=== PATIENT | female | born 1930 | race Caucasian/White ===

== ENCOUNTER → 2016-04-02 | Outpatient (CLI) | payer BC, OTHER ==
[~2016-04-02] MED LIST: BETA300T PO; DIGECAP3 PO; LOPE2TAB74 PO; LORA-741 PO; MELO7.5T6 PO; MISCTAB88 PO; MULT-190 PO; NTRS PO; VERA240C2 PO
[2016-04-02 17:48] LABS: BASO % 0.2 %; BASO ABS # 0.01 K/uL (0-0.2); COMPLETE YES; EOS % 5.1 %; HEMATOCRIT 42.1 % (37-47); IG% 0.2 %; LYMPH % 44.2 %; LYMPH ABS # 1.92 K/uL (1.2-3.4); MEAN CELL VOLUME 87.7 fL (80-100); MEAN CORPUSCULAR HEMOGLOBIN 31.7 pg (25-34); MEAN CORPUSCULAR HGB CONC 36.1 g/dl (32-36); MEAN PLATELET VOLUME 10.3 fL (7.4-10.4); MONO % 7.1 %; NEUT % 43.2 %; PLATELET COUNT 176 K/uL (130-400); WHITE BLOOD COUNT 4.34 K/uL (4.8-10.8)
--- NOTE | 2016-04-06 09:02 | CODING QUERY MEDICAL NECESSITY ---
SUPPORTING DIAGNOSIS NEEDED Jena PILLAI, A supporting diagnosis is required for the test/procedure performed on this patient in order for us to be reimbursed by the patient's insurance. Please provide a supporting diagnosis for the following test/procedure listed below next to the test name along with your signature. *If there is no additional diagnosis for this patient that would support the following test/procedure please document that below next to the test/procedure. Test(s)/Procedure(s) that require a supporting diagnosis: * ([id number]) VITAMIN D ASSAY DIAGNOSIS: DATE OF SERVICE: 04/02/16 Provider Signature: Date: Thank you Augie Ruiz [facility] Information Management Once completed, please kindly fax back to [phone] For questions please call [phone]
== END | disposition home or self-care (01) ==
LOC: C.LABPVFM 14:58
PROVIDERS: ATTEND Nurse Practitioner
DX: G62.9 Polyneuropathy, unspecified (principal); R53.83 Other fatigue; M54.9 Dorsalgia, unspecified

== ENCOUNTER → 2016-07-13 | Outpatient (CLI) | payer BC ==
--- NOTE | 2016-07-13 14:57 | DIAGNOSTIC IMAGING REPORT ---
KUB CLINICAL HISTORY: CONSTIPATION COMPARISON STUDY: 02/23/2014 FINDINGS: There is no pathologic bowel dilatation. There is scattered stool within the colon. There are postsurgical changes are prior cholecystectomy. There are vascular calcifications present. There is a stable sclerotic focus within either the right medial ilium or lateral right sacrum. IMPRESSION: No evidence of pathologic bowel dilatation Electronically signed by: Ja Henry M.D. 07/13/2016 2:56 PM Dictated Date/Time: 07/13/2016 2:53 PM
[2016-07-13 17:31] LABS: HEMATOCRIT 43.7 % (37-47); MEAN CORPUSCULAR HEMOGLOBIN 32.3 pg (25-34); MEAN CORPUSCULAR HGB CONC 35.5 g/dl (32-36); MEAN PLATELET VOLUME 10.4 fL (7.4-10.4); PLATELET COUNT 162 K/uL (130-400); WHITE BLOOD COUNT 3.89 K/uL (4.8-10.8)
[2016-07-13 17:38] LABS: ALT/SGPT 30 U/L (12-78); AST/SGOT 23 U/L (15-37); BLOOD UREA NITROGEN 11 mg/dl (7-18); BUN/CREATININE RATIO 15.2 (10-20); CALCIUM 8.8 mg/dl (8.5-10.1); CARBON DIOXIDE 34 mmol/L (21-32); CHLORIDE 103 mmol/L (98-107); CREATININE 0.73 mg/dl (0.60-1.20); GLUCOSE 108 mg/dl (70-99); POTASSIUM 3.6 mmol/L (3.5-5.1); SODIUM 141 mmol/L (136-145)
[2016-07-13 17:40] LABS: ALB/GLOB RATIO 1.1 (0.9-2); ALKALINE PHOSPHATASE 65 U/L (45-117)
== END | disposition home or self-care (01) ==
LOC: C.RADPV 14:21
PROVIDERS: ATTEND Nurse Practitioner
DX: K59.00 Constipation, unspecified (principal)

== ENCOUNTER → 2016-11-06 | Outpatient (CLI) | payer BC ==
[2016-11-06 12:39] LABS: BLOOD UREA NITROGEN 12 mg/dl (7-18); BUN/CREATININE RATIO 13.9 (10-20); CALCIUM 9.7 mg/dl (8.5-10.1); CARBON DIOXIDE 30 mmol/L (21-32); CHLORIDE 103 mmol/L (98-107); CREATININE 0.84 mg/dl (0.60-1.20); GLUCOSE 113 mg/dl (70-99); POTASSIUM 3.7 mmol/L (3.5-5.1); SODIUM 140 mmol/L (136-145)
== END | disposition home or self-care (01) ==
LOC: C.LABPVFM 09:35
PROVIDERS: ATTEND Nurse Practitioner
DX: I10 Essential (primary) hypertension (principal)

== ENCOUNTER → 2016-12-03 | Outpatient (CLI) | payer BC | END | disposition home or self-care (01) | LOC: C.MAMM 13:44 | PROVIDERS: ATTEND Nurse Practitioner | DX: M85.88 Other specified disorders of bone density and structure, other site (principal); M85.851 Other specified disorders of bone density and structure, right thigh; M85.852 Other specified disorders of bone density and structure, left thigh ==

== ENCOUNTER → 2017-05-30 | Outpatient (CLI) | payer BC ==
--- NOTE | 2017-05-30 11:06 | DIAGNOSTIC IMAGING REPORT ---
C-SPINE ROUTINE 4 OR 5 VIEWS CLINICAL HISTORY: M25.512 Left shoulder painM54.2 Cervicalgia COMPARISON STUDY: No previous studies for comparison. FINDINGS: No fractures or subluxations are visualized. There are degenerative changes present most pronounced the C6-7 and C7-T1 levels. IMPRESSION: 1. No fractures or subluxations 2. 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 05/30/2017 11:05 AM Dictated Date/Time: 05/30/2017 11:04 AM
--- NOTE | 2017-05-30 11:07 | DIAGNOSTIC IMAGING REPORT ---
LEFT SHOULDER 3 VIEWS HISTORY: M25.512 Left shoulder painM54.2 Cervicalgia COMPARISON: None. FINDINGS: There is no fracture or dislocation. Soft tissues are unremarkable. The left clavicle is intact. There is severe osteoarthritis at the glenohumeral joint demonstrated by cartilage space narrowing, subchondral sclerosis, and subchondral cystic change. There are also marginal osteophytes at this location. IMPRESSION: No fracture or dislocation within the left shoulder. Severe glenohumeral joint osteoarthritis. Electronically signed by: Landon Sahu M.D. 05/30/2017 11:06 AM Dictated Date/Time: 05/30/2017 11:04 AM
== END | disposition home or self-care (01) ==
LOC: C.RAD1850 10:46
PROVIDERS: ATTEND Nurse Practitioner Family
DX: M25.512 Pain in left shoulder (principal); M54.2 Cervicalgia; M19.012 Primary osteoarthritis, left shoulder

== ENCOUNTER 2019-01-18 07:57 | Inpatient (IN) ==
--- NOTE | 2019-01-18 09:02 | XRay Report ---
XR chest 1V portable HISTORY: 88 years-old Female sob, cp acute shortness of breath with atypical chest pain COMPARISON: Acute abdominal series radiographs 02/11/2014 TECHNIQUE: Portable AP view of the chest FINDINGS: Cardiac silhouette is mildly enlarged, unchanged. Calcified plaque of the thoracic aortic arch. No pn eumothorax, pleural effusion, focal airspace consolidation or overt pulmonary edema. Lungs are mildly hyperinflated. Degenerative changes of the shoulders and spine. IMPRESSION: No acute process. The above report was generated using voice recognition software. It may contain grammatical, syntax o r spelling errors. Electronically signed by: Rich Rico M.D. 01/18/2019 9:00 AM
[2019-01-18 09:05] LABS: Basophils # (auto) 0.02 K/uL (0-0.2); Basophils % (auto) 0.2 %; Eosinophils # (auto) 0.15 K/uL (0-0.5); Eosinophils % (auto) 1.5 %; Hematocrit (blood only) 43.7 % (37-47); Immature Granulocytes # (auto) 0.01 K/uL (0.00-0.02); Immature Granulocytes % (auto) 0.1 %; Lymphocytes # (auto) 1.08 K/uL (1.2-3.4); Lymphocytes % (auto) 10.7 %; Mean Corpuscular Hemoglobin 31.3 pg (25-34); Mean Corpuscular Hgb Conc 34.3 g/dL (32-36); Mean Corpuscular Volume 91.2 fL (80-100); Mean Platelet Volume 9.9 fL (7.4-10.4); Monocytes # (auto) 0.74 K/uL (0.11-0.59); Monocytes % (auto) 7.3 %; Neutrophils # (auto) 8.13 K/uL (1.4-6.5); Neutrophils % (auto) 80.2 %; Platelet Count 186 K/uL (130-400); RDW Coefficient of Variation 12.9 % (11.5-14.5); RDW Standard Deviation 42.9 fL (36.4-46.3); Red Blood Count 4.79 M/uL (4.2-5.4); White Blood Count 10.13 K/uL (4.8-10.8)
[2019-01-18 09:22] LABS: Albumin Globulin Ratio 0.8 (0.9-2); Albumin Level 3.4 gm/dl (3.4-5.0); BUN Creatinine Ratio 11.9 (10-20); Bilirubin,Total 0.7 mg/dl (0.2-1); Calcium 9.5 mg/dl (8.5-10.1); Creatinine Clr Calc Pharmacy 49.6 ml/min; Est GFR (African American) 76.2; Est GFR (Non-African American) 65.8; Globulin 4.2 gm/dl (2.5-4.0); Total Protein 7.6 gm/dl (6.4-8.2)
[2019-01-18 09:50] LABS: Lipase 38 U/L (73-393); NT Pro B Type Natriuretic Pept 136 pg/ml (0-1800); Troponin I < 0.015 ng/ml (0-0.045)
[2019-01-18 10:09] LABS: Potassium 3.8 mmol/L (3.5-5.1)
[2019-01-18 10:14] LABS: Magnesium 1.9 mg/dl (1.8-2.4)
[2019-01-18] MEDS ORDERED: OPTIRAY 320 125ml IV PRN (10:20)
--- NOTE | 2019-01-18 10:47 | CT Scan Report ---
CT angio chest PE protocol CT DOSE: 502.67 mGy.cm HISTORY: 88 years-old Female with PE. Acute respiratory distress TECHNIQUE: Multiple CTA images of the chest were obtained after the intravenous administration of 120 ml Optiray 320. Coronal and sagittal MIPS were obtained from the axial data set and were submitted for review. All measurements were obtained according to NASCET criteria. A dose lowering technique w as utilized adhering to the principles of ALARA. COMPARISON: Chest radiograph of same day FINDINGS: CTA: Mild cardiomegaly. No pericardial effusion. Coronary arterial and aortic annular calcifications are n oted. Moderate mixed plaque of the thoracic aorta. No thoracic aortic aneurysm or dissection. Patency of the imaged great vessels. No mediastinal hematoma. The pulmonary arterial tree is opacified to le wu of the proximal subsegmental branches. The bibasilar pulmonary artery branches are suboptimally v isualized secondary to respiratory motion artifact. No filling defects identified to suggest pulmonar y thromboembolic disease. CT CHEST: Mildly heterogeneous appearance of the thyroid. Calcified mediastinal and hilar lymph nodes compatibl e with prior granulomatous disease. Additionally, there are mildly enlarged hilar and prominent subca rinal noncalcified lymph nodes. No pneumothorax or pleural effusion. Mild bilateral bronchial wall th ickening. No focal airspace consolidation typical for pneumonia. No overt pulmonary edema. 3 mm subpl eural nodule of the left lower lobe, image 122 series 4 is indeterminate. 8 x 5 mm subpleural nodule of the superior segment left lower lobe with mild subpleural retraction/scarring. Central airways are patent. No acute processes of the imaged upper abdomen. Upper abdominal vascular calcifications are noted. Hepatic steatosis. Degenerative changes of the spine and shoulders. IMPRESSION: 1. Cardiomegaly without evidence of pulmonary thromboembolic disease. The study is mildly limited sec ondary to respiratory motion artifact as above. 2. No pleural effusion or focal airspace consolidation typical for pneumonia. 3. Prior granulomatous disease. Additionally, there are a few prominent and mildly enlarged subcarina l and hilar lymph nodes which are nonspecific. 4. There are a few subpleural nodules of the left lower lobe, largest of which measures 8 x 5 mm. Fol low-up guidelines provided below. 5. Bilateral bronchial wall thickening. Correlate clinically to exclude bronchitis or inflammatory ai rway disease. Please refer to below summary of Fleischner criteria recommendations for follow-up of incidental CT n odules ([place] Marshall, Guidelines for management of small pulmonary nodules detected on CT scans: A erwin wooten from the Fleischner Society, Radiology 237: [phone].) SOLID NODULES Multiple nodules size: 6-8 mm * Low risk patients: follow-up at 3-6 months, then consider further follow-up at 18-24 months * high risk patients: follow-up at 3-6 months, then at 18-24 months if no change Multiple nodules size: >8 mm * Low risk patients: follow-up at 3-6 months, then consider further follow-up at 18-24 months * high risk patients: follow-up at 3-6 months, then at 18-24 months if no change Note: newly detected indeterminate nodule in persons 35 years of age or older. * Low risk patients: minimal or absent history of smoking and/or other known risk factors * high risk patients: history of smoking or of other known risk factors (e.g. first degree relative with lung cancer, or exposure to asbestos, radon, uranium) * if a nodule up to 8 mm is partly solid or is ground glass further follow-up is required after 24 m onths to exclude possible slow growing adenocarcinoma (YUNG) The above report was generated using voice recognition software. It may contain grammatical, syntax o r spelling errors. Electronically signed by: Rich Rico M.D. 01/18/2019 10:46 AM
--- NOTE | 2019-01-18 11:55 | Emergency Department Note ---
Entered by Anna Bray acting as a scribe for Linette Trujillo DO History of Present Illness General Chief complaint: Shortness of Breath/Dyspnea Stated complaint: VERTIGO, DIFFICULTY BREATHING Time Seen by Provider: 01/18/19 08:15 Source: patient and family (daughter) History of Present Illness Onset (ago): day(s) 4 Location: chest Pain Consistency: + other (persistent) Maximum Pain Intensity: 0 Quality: + other (shortness of breath) Associated symptoms: + denies other symptoms (fevers, chills, nausea, changes in appetite, changes in bowel movements, or swelling in her legs) and + other (productive cough (clear phlegm), chest pain with breathing) The patient is a 88 year old female that is presenting to the Emergency Room with complaints of persistent shortness of breath that started 4 days ago. The patient reports that she has an associated cough that producing a clear phlegm. She states his cough has been worsening over the last 4 to 5 days. She states that she has some chest pain with breathing. She notes that her symptoms worsened this morning, prompting her to come to the ED today. She denies any fevers, chills, nausea, changes in appetite, changes in bowel movements, or swelling in her legs. The patient denies any history of asthma, COPD, or tobacco use. She denies any past similar episodes. She notes that she has a history of a heart murmur but no other known cardiac issues. The patients daughter reports that the patient was seen by Dr. Xiong 4 days ago and had her anti-anxiety dosage changed from 5mg to 10mg daily. The patient denies any sick contacts. She denies having received a flu or pneumonia vaccine. Her daughter notes that the patients blood pressure and temperatures were reportedly normal as noted by the patients caregiving staff. No history of dysphasia, patient denies any recent choking or gagging episodes. Home Medications Home Medications Medication Instructions Recorded Confirmed Type docusate sodium 100 mg capsule 100 mg PO BID PRN #60 cap 09/13/18 01/18/19 Rx fluocinonide 0.05 % topical 1 appln TOPICAL BID #60 gm 09/13/18 01/18/19 History ointment glucosamine 750 [id number] 1 tab PO TIDM tab 09/13/18 01/18/19 History no1 644 mg-C 30 mg-erick 1 mg tablet [id number]-VR 200 mcg-vit K 15 1 tab PO QAM tab 09/13/18 01/18/19 History mcg-lycope 150 wtg-[id number]-dxkj tablet sennosides 8.6 mg tablet 8.6 mg PO BID #60 tab 01/13/19 01/18/19 History calcium carbonate-vitamin D3 1 tab PO QAM 01/18/19 01/18/19 History [Calcium 500 + D] cholecalciferol (vitamin D3) 2,000 unit PO QAM 01/18/19 01/18/19 History [Vitamin D3] escitalopram oxalate [Lexapro] 10 mg PO QAM 01/18/19 01/18/19 History hydrochlorothiazide 12.5 mg PO QAM 01/18/19 01/18/19 History omeprazole 20 mg PO QAM 01/18/19 01/18/19 History pseudoephedrine-guaifenesin 1 tab PO BID PRN 01/18/19 01/18/19 History [Mucinex D] verapamil 240 mg PO HS 01/18/19 01/18/19 History albuterol sulfate 1 puffs INH Q6H PRN 7 Days #8.5 gm 01/19/19 Rx azithromycin [Zithromax] 500 mg PO QAM 3 Days #6 tab 01/19/19 Rx prednisone 40 mg PO QAM 5 Days #10 tab 01/19/19 Rx Allergies Allergy/AdvReac Type Severity Reaction Status Date / Time lisinopril Allergy Unknown MYALGIA Verified 01/18/19 09:11 codeine AdvReac Unknown "HIGH" Verified 01/18/19 09:11 donepezil [From Aricept] AdvReac Unknown Unknown Unverified 01/18/19 09:32 morphine AdvReac Unknown Unknown Unverified 01/18/19 09:32 Opioids - Morphine Analogues AdvReac Unknown Unknown Unverified 01/18/19 09:32 Past Med/Surg History Medical History Aortic valve sclerosis (Acute) Atrial premature beats (Acute) Cervicalgia (Acute) Velez angioma (Acute) Constipation (Chronic) Depression with anxiety (Chronic) Diverticulitis of colon (Acute) Hepatic lesion (Acute) Herpes zoster without complication (Acute) Hyperlipidemia (Acute) Hypertension (Chronic) Mitral regurgitation (Acute) Murmur (Acute) Osteopenia (Acute) Paroxysmal SVT (supraventricular tachycardia) (Acute) Peripheral neuropathy (Acute) Seborrheic keratosis (Acute) Short-term memory loss (Chronic) Tubular adenoma of colon (Acute) Surgical History Hx of cholecystectomy Hx of oral surgery Hx of tubal ligation Social History Preferred Language: Nepalese Communication Ability: Effective 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 and A total of 10 systems reviewed and were otherwise negative Physical Exam Vital Signs Vital Signs - 24 hr 01/18/19 08:02 01/18/19 09:02 01/18/19 11:00 Temperature 98.6 F Temperature Source Oral Pulse Rate 97 H Pulse Rate [Apical] 85 85 Pulse Rate [Exercises] Respiratory Rate 36 H 18 18 Respiratory Rate [Exercises] Respiratory Effort / Characteristics Labored Blood Pressure 228/93 H Blood Pressure [Left Arm] 190/91 H 166/99 H Blood Pressure Mean 138 Blood Pressure Mean [Left Arm] 124 121 Pulse Oximetry 85 L 95 94 Pulse Oximetry [Exercises] Oxygen Delivery Method Room Air Room Air Oxygen Flow Rate Sepsis Recent Fever Within 48 Hours No Sepsis Action Taken by Nursing No Action Required 01/18/19 12:13 01/18/19 12:21 Temperature Temperature Source Pulse Rate Pulse Rate [Apical] 84 Pulse Rate [Exercises] 94 H Respiratory Rate 24 Respiratory Rate [Exercises] 22 Respiratory Effort / Characteristics Blood Pressure Blood Pressure [Left Arm] 182/87 H Blood Pressure Mean Blood Pressure Mean [Left Arm] 118 Pulse Oximetry 96 Pulse Oximetry [Exercises] 83 L Oxygen Delivery Method Room Air Nasal Cannula Oxygen Flow Rate 2 Sepsis Recent Fever Within 48 Hours Sepsis Action Taken by Nursing GENERAL: alert, well appearing, well nourished, no distress, non-toxic EYE EXAM: normal conjunctiva, PERRL and EOM's grossly intact OROPHARYNX: no exudate, no erythema, lips, buccal mucosa, and tongue normal and mucous membranes are moist NECK: supple, no nuchal rigidity, no adenopathy, non-tender LUNGS: Diminshed breath sounds bilaterally. No wheezes, rhonci, or rales. Normal chest wall mechanics HEART: no murmurs, S1 normal and S2 normal ABDOMEN: abdomen soft, non-tender, normo-active bowel sounds, no masses, no rebound or guarding. BACK: Back is symmetrical on inspection and there is no deformity, no midline tenderness, no CVA tenderness. SKIN: no rashes and no bruising UPPER EXTREMITIES: upper extremities are grossly normal. FROM, nml pulses b/l. LOWER EXTREMITIES: No pitting edema. FROM, nml pulses b/l. NEURO EXAM: Normal sensorium, cranial nerves II-XII grossly intact, normal speech, no gross weakness of arms, no gross weakness of legs. Course Course 0818:The patient was evaluated in room A04B. A complete history and physical examination was performed. 1200: I updated the patient on her current lab and imaging results. She continues to feel short of breath. An ambulatory trial will be attempted to evaluate the patient for discharge. 1246: Patient was unable to tolerate an ambulatory trial at this time. Her O2 saturation level dropped to 82%. 1251: I discussed the patients case with Dr. Lucio, who will evaluate the patient for further management and care. Administered Medications Discontinued Medications Albuterol (Duoneb) 3 ml NEB QIDR KIERRA Stop: 02/17/19 14:59 Last Admin: 01/19/19 14:45 Dose: 3 ml Documented by: [id number] Admin: 01/19/19 11:11 Dose: 3 ml Documented by: [id number] Admin: 01/19/19 07:14 Dose: 3 ml Documented by: [id number] Admin: 01/18/19 19:01 Dose: 3 ml Documented by: [id number] Admin: 01/18/19 15:14 Dose: Not Given Documented by: [id number] Amoxicillin/Clavulanate Potassium (Augmentin 875mg) 1 tab PO NOW ONE Stop: 01/18/19 12:48 Last Admin: 01/18/19 13:00 Dose: 1 tab Documented by: [id number] Azithromycin (Zithromax) [address] [facility] Stop: 01/25/19 14:59 Last Admin: 01/19/19 08:03 Dose: 500 mg Documented by: [id number] Admin: 01/18/19 17:54 Dose: 500 mg Documented by: [id number] Enoxaparin Sodium (Lovenox) 40 mg SQ Q24H [facility] Stop: 02/17/19 14:59 Last Admin: 01/18/19 17:56 Dose: 40 mg Documented by: [id number] Escitalopram Oxalate (Lexapro Tab) [address] [facility] Stop: 02/18/19 08:59 Last Admin: 01/19/19 08:04 Dose: 10 mg Documented by: [id number] Fluocinonide (Lidex 0.5%) 1 appln EXT BID [facility] Stop: 02/17/19 20:59 Last Admin: 01/19/19 10:21 Dose: Not Given Documented by: [id number] Admin: 01/18/19 21:30 Dose: 1 appln Documented by: [id number] Sodium Chloride (Nss 1000ml) 1,000 mls @ 125 mls/hr IV .Q8H [facility] Stop: 02/17/19 11:59 Last Infusion: 01/18/19 22:06 Dose: 0 mls/hr Documented by: [id number] Admin: 01/18/19 12:18 Dose: 125 mls/hr Documented by: [id number] Ioversol (Optiray 320 125ml) 120 ml IV ONCE PRN PRN Reason: Interaction Checking Stop: 01/22/19 10:19 Last Admin: 01/18/19 10:23 Dose: 120 ml Documented by: [id number] Multivitamins/Minerals (Caltrate Plus) [address] [facility] Stop: 02/18/19 08:59 Last Admin: 01/19/19 08:04 Dose: 1 tab Documented by: [id number] Multivitamins/Minerals (Multivitamin W/ Minerals Tab) [address] [facility] Stop: 02/18/19 08:59 Last Admin: 01/19/19 08:03 Dose: 1 tab Documented by: [id number] Pantoprazole Sodium (Protonix) [address] [facility] Stop: 02/18/19 08:59 Last Admin: 01/19/19 08:04 Dose: 40 mg Documented by: [id number] Prednisone (Prednisone) 40 mg PO QAM [facility] Stop: 02/17/19 14:59 Last Admin: 01/19/19 08:04 Dose: 40 mg Documented by: [id number] Admin: 01/18/19 17:54 Dose: 40 mg Documented by: [id number] Sennosides (Senokot) 8.6 mg PO BID KIERRA Stop: 02/17/19 20:59 Last Admin: 01/19/19 08:04 Dose: 8.6 mg Documented by: [id number] Admin: 01/18/19 21:29 Dose: 8.6 mg Documented by: [id number] Verapamil HCl (Calan Sr) 240 mg PO HS KIERRA Stop: 02/17/19 20:59 Last Admin: 01/18/19 21:29 Dose: 240 mg Documented by: [id number] Vitamin D (Vitamin D3) 2,000 units PO QAM [facility] Stop: 02/18/19 08:59 Last Admin: 01/19/19 08:03 Dose: 2,000 units Documented by: [id number] Medical Decision Making Differential Diagnosis Differential diagnoses includes but is not limited to pneumonia, bronchitis, COPD/Asthma exacerbation, pneumothorax, pulmonary embolism, congestive heart failure, acute coronary syndrome Medical Records Attestation: I reviewed the patient's medical records. Home Medications Current Medication List: was personally reviewed by me Laboratory Data Attestation: I reviewed the patient's lab results. Result diagrams: 01/19/19 07:18 01/19/19 07:18 Lab Results 01/18/19 01/18/19 01/18/19 Range/Units 08:51 08:51 08:51 WBC 10.13 (4.8-10.8) K/uL RBC 4.79 (4.2-5.4) M/uL Hgb 15.0 (12.0-16.0) g/dL Hct 43.7 (37-47) % MCV 91.2 (80-100) fL MCH 31.3 (25-34) pg MCHC 34.3 (32-36) g/dL RDW Std Deviation 42.9 (36.4-46.3) fL RDW Coeff of Ivory 12.9 (11.5-14.5) % Plt Count 186 (130-400) K/uL MPV 9.9 (7.4-10.4) fL Immature Gran % (Auto) 0.1 % Neut % (Auto) 80.2 % Lymph % (Auto) 10.7 % Bradford % (Auto) 7.3 % Eos % (Auto) 1.5 % Baso % (Auto) 0.2 % Immature Gran # (Auto) 0.01 (0.00-0.02) K/uL Neut # (Auto) 8.13 H (1.4-6.5) K/uL Lymph # (Auto) 1.08 L (1.2-3.4) K/uL Bradford # (Auto) 0.74 H (0.11-0.59) K/uL Eos # (Auto) 0.15 (0-0.5) K/uL Baso # (Auto) 0.02 (0-0.2) K/uL Sodium 135 L (136-145) mmol/L Potassium (3.5-5.1) mmol/L Chloride 99 (98-107) mmol/L Carbon Dioxide 32 (21-32) mmol/L Anion Gap 4.0 (3-11) BUN 10 (7-18) mg/dl Creatinine 0.81 (0.6-1.2) mg/dl Est Cr Clr Drug Dosing 49.6 ml/min Est GFR ( Amer) 76.2 Est GFR (Non-Af Amer) 65.8 BUN/Creatinine Ratio 11.9 (10-20) Glucose 145 H (70-99) mg/dl Calcium 9.5 (8.5-10.1) mg/dl Magnesium (1.8-2.4) mg/dl Total Bilirubin 0.7 (0.2-1) mg/dl AST (15-37) U/L ALT 23 (12-78) U/L Alkaline Phosphatase 82 (45-117) U/L Troponin I < 0.015 (0-0.045) ng/ml NT-Pro-B Natriuret Pep 136 (0-1800) pg/ml Total Protein 7.6 (6.4-8.2) gm/dl Albumin 3.4 (3.4-5.0) gm/dl Globulin 4.2 H (2.5-4.0) gm/dl Albumin/Globulin Ratio 0.8 L (0.9-2) Lipase 38 L (73-393) U/L TSH 2.700 (0.300-4.500) uIu/ml Urine Color Urine Appearance (Clear) Urine pH (4.5-7.5) Ur Specific Haddock (1.000-1.030) Urine Protein (Negative) Urine Glucose (UA) (Negative) Urine Ketones (Negative) Urine Blood (Negative) Urine Nitrite (Negative) Urine Bilirubin (Negative) Urine Urobilinogen (Negative) Ur Leukocyte Esterase (Negative) Urine WBC (Auto) (0-5) /hpf Urine RBC (Auto) (0-4) /hpf U Hyaline Cast (Auto) (0-5) /lpf U Epithel Cells (Auto) (0-5) /lpf Urine Bacteria (Auto) (Negative) 01/18/19 01/18/19 Range/Units 09:38 12:11 WBC (4.8-10.8) K/uL RBC (4.2-5.4) M/uL Hgb (12.0-16.0) g/dL Hct (37-47) % MCV (80-100) fL MCH (25-34) pg MCHC (32-36) g/dL RDW Std Deviation (36.4-46.3) fL RDW Coeff of Ivory (11.5-14.5) % Plt Count (130-400) K/uL MPV (7.4-10.4) fL Immature Gran % (Auto) % Neut % (Auto) % Lymph % (Auto) % Bradford % (Auto) % Eos % (Auto) % Baso % (Auto) % Immature Gran # (Auto) (0.00-0.02) K/uL Neut # (Auto) (1.4-6.5) K/uL Lymph # (Auto) (1.2-3.4) K/uL Bradford # (Auto) (0.11-0.59) K/uL Eos # (Auto) (0-0.5) K/uL Baso # (Auto) (0-0.2) K/uL Sodium (136-145) mmol/L Potassium 3.8 (3.5-5.1) mmol/L Chloride (98-107) mmol/L Carbon Dioxide (21-32) mmol/L Anion Gap (3-11) BUN (7-18) mg/dl Creatinine (0.6-1.2) mg/dl Est Cr Clr Drug Dosing ml/min Est GFR ( Amer) Est GFR (Non-Af Amer) BUN/Creatinine Ratio (10-20) Glucose (70-99) mg/dl Calcium (8.5-10.1) mg/dl Magnesium 1.9 (1.8-2.4) mg/dl Total Bilirubin (0.2-1) mg/dl AST 14 L (15-37) U/L ALT (12-78) U/L Alkaline Phosphatase (45-117) U/L Troponin I (0-0.045) ng/ml NT-Pro-B Natriuret Pep (0-1800) pg/ml Total Protein (6.4-8.2) gm/dl Albumin (3.4-5.0) gm/dl Globulin (2.5-4.0) gm/dl Albumin/Globulin Ratio (0.9-2) Lipase (73-393) U/L TSH (0.300-4.500) uIu/ml Urine Color Yellow Urine Appearance Clear (Clear) Urine pH 7.0 (4.5-7.5) Ur Specific Haddock > 1.045 H (1.000-1.030) Urine Protein Negative (Negative) Urine Glucose (UA) Negative (Negative) Urine Ketones Negative (Negative) Urine Blood Trace H (Negative) Urine Nitrite Negative (Negative) Urine Bilirubin Negative (Negative) Urine Urobilinogen Negative (Negative) Ur Leukocyte Esterase Negative (Negative) Urine WBC (Auto) 0 (0-5) /hpf Urine RBC (Auto) 0-4 (0-4) /hpf U Hyaline Cast (Auto) 0 (0-5) /lpf U Epithel Cells (Auto) 5-10 H (0-5) /lpf Urine Bacteria (Auto) Negative (Negative) Imaging Data Radiologist's Impression: Radiology results as stated below per my review and the radiologist's interpretation: XR chest 1V portable HISTORY: 88 years-old Female sob, cp acute shortness of breath with atypical chest pain COMPARISON: Acute abdominal series radiographs 02/11/2014 TECHNIQUE: Portable AP view of the chest FINDINGS: Cardiac silhouette is mildly enlarged, unchanged. Calcified plaque of the thoracic aortic arch. No pneumothorax, pleural effusion, focal airspace consolidation or overt pulmonary edema. Lungs are mildly hyperinflated. Degenerative changes of the shoulders and spine. IMPRESSION: No acute process. The above report was generated using voice recognition software. It may contain grammatical, syntax or spelling errors. Electronically signed by: Rich Rico M.D. 01/18/2019 9:[address] angio chest PE protocol CT DOSE: 502.67 mGy.cm HISTORY: 88 years-old Female with PE. Acute respiratory distress TECHNIQUE: Multiple CTA images of the chest were obtained after the intravenous administration of 120 ml Optiray 320. Coronal and sagittal MIPS were obtained from the axial data set and were submitted for review. All measurements were obtained according to NASCET criteria. A dose lowering technique was utilized adhering to the principles of ALARA. COMPARISON: Chest radiograph of same day FINDINGS: CTA: Mild cardiomegaly. No pericardial effusion. Coronary arterial and aortic annular calcifications are noted. Moderate mixed plaque of the thoracic aorta. No thoracic aortic aneurysm or dissection. Patency of the imaged great vessels. No mediastinal hematoma. The pulmonary arterial tree is opacified to level of the proximal subsegmental branches. The bibasilar pulmonary artery branches are suboptimally visualized secondary to respiratory motion artifact. No filling defects identified to suggest pulmonary thromboembolic disease. CT CHEST: Mildly heterogeneous appearance of the thyroid. Calcified mediastinal and hilar lymph nodes compatible with prior granulomatous disease. Additionally, there are mildly enlarged hilar and prominent subcarinal noncalcified lymph nodes. No pne umothorax or pleural effusion. Mild bilateral bronchial wall thickening. No focal airspace consolidation typical for pneumonia. No overt pulmonary edema. 3 mm subpleural nodule of the left lower lobe, image 122 series 4 is indeterminate. 8 x 5 mm subpleural nodule of the superior segment left lower lobe with mild subpleural retraction/scarring. Central airways are patent. No acute processes of the imaged upper abdomen. Upper abdominal vascular calcifications are noted. Hepatic steatosis. Degenerative changes of the spine and shoulders. IMPRESSION: 1. Cardiomegaly without evidence of pulmonary thromboembolic disease. The study is mildly limited secondary to respiratory motion artifact as above. 2. No pleural effusion or focal airspace consolidation typical for pneumonia. 3. Prior granulomatous disease. Additionally, there are a few prominent and mildly enlarged subcarinal and hilar lymph nodes which are nonspecific. 4. There are a few subpleural nodules of the left lower lobe, largest of which measures 8 x 5 mm. Follow-up guidelines provided below. 5. Bilateral bronchial wall thickening. Correlate clinically to exclude bronchitis or inflammatory airway disease. Please refer to below summary of Fleischner criteria recommendations for follow- up of incidental CT nodules ([place] Marshall, Guidelines for management of small pulmonary nodules detected on CT scans: A statement from the Fleischner Society, Radiology 237: [phone].) SOLID NODULES Multiple nodules size: 6-8 mm * Low risk patients: follow-up at 3-6 months, then consider further follow-up at 18-24 months * high risk patients: follow-up at 3-6 months, then at 18-24 months if no change Multiple nodules size: >8 mm * Low risk patients: follow-up at 3-6 months, then consider further follow-up at 18-24 months * high risk patients: follow-up at 3-6 months, then at 18-24 months if no change Note: newly detected indeterminate nodule in persons 35 years of age or older. * Low risk patients: minimal or absent history of smoking and/or other known risk factors * high risk patients: history of smoking or of other known risk factors (e.g. first degree relative with lung cancer, or exposure to asbestos, radon, uranium) * if a nodule up to 8 mm is partly solid or is ground glass further follow-up is required after 24 months to exclude possible slow growing adenocarcinoma (YUNG) The above report was generated using voice recognition software. It may contain grammatical, syntax or spelling errors. Electronically signed by: Rich Rico M.D. 01/18/2019 10:46 AM ECG Data Attestation: I personally reviewed and interpreted this ECG as follows: Indication: + SOB/dyspnea Rate (beats per minute): 86 Rhythm: + sinus rhythm ECG Intervals/blocks: + Normal QRS, + Normal QT and + Normal OR ECG Weston: + Normal ECG ST segments: no ST depression and no ST elevation ECG Findings: + Other (baseline artifact); no PACs and no PVCs Blood Pressure Blood Pressure Findings: Elevated blood pressure Blood Pressure Disposition: elevated BP felt to be situational MDM Narrative Patient's labs and imaging reassuring here despite description of increased shortness of breath and other URI symptoms. Patient initially found to be hypoxic on room air and was placed on nasal cannula. Patient's chest x-ray unremarkable, however due to symptoms and advanced age, patient sent for CT. This too did not reveal any acute pulmonary process, no PE, no effusions. No evidence of bacteremia/sepsis. Attempted to wean patient off of her nasal cannula and she stated she felt like she was slightly short of breath. We then attempted an ambulatory trial of which patient became markedly dyspneic and h ypoxic. Patient recovered quickly after resting. Due to unknown etiology of symptoms other than possible bronchitis versus early pneumonia, patient started on antibiotics and case discussed with hospitalist. Patient and family at bedside kept up-to-date on all results and were in agreement with plan. Patient's other vital signs stable throughout. Impression & Plan Dyspnea, Hypoxia, Bronchitis Discharge Plan Visit Data *Final* Discharge Date/Time: 01/18/19 14:12 Chief Complaint: Shortness of Breath/Dyspnea Stated Complaint: VERTIGO, DIFFICULTY BREATHING Other Complaint: Vertigo ED Provider: Linette Trujillo Discharge Problem: Dyspnea, Hypoxia, Bronchitis Patient Disposition: Admitted As Inpatient Condition: Good Discharge Instructions Interventions: ED Discharge Assessment Last Done: 01/18/19 14:12 Discharge Problem: Dyspnea Qualifiers: Dyspnea type: unspecified Qualified Code(s): R06.00 - Dyspnea, unspecified The scribe's documentation has been prepared under my direction and personally reviewed by me in its entirety. I confirm that the note above accurately reflects all work, treatment, procedures, and medical decision making performed by me.
[2019-01-18] MEDS ORDERED: SODIUM CHLORIDE 0.9% 1000ML 1,000 ML IV SCH (12:00)
[2019-01-18] MEDS ORDERED: AMOXICILLIN/CLAVULANATE 875 MG TAB PO ONE (12:47)
--- NOTE | 2019-01-18 13:47 | History & Physical Report ---
Date of Service January 18, 2019 Assessment & Plan (1) Bronchial pneumonia: wheezing on exam bilaterally, more pronounced anteriorly CT chest shows some thickening of bronchial smith will treat with Prednisone 40mg daily, Duoneb, Zithromax 500mg PO daily follow clinical response (2) Hypoxia: saturations 85% on room air at rest, dropped to 83% when ambulating feels better with oxygen in place no history of COPD, no obvious pneumonia on CT, no PE, no signs of heart failure will treat bronchial pneumonia, try to titrate off oxygen prior to discharge (3) Dyspnea: due to bronchial pneumonia treat as below will check echo to r/o severe MR or systolic HF (4) Murmur: check echo tomorrow History of Present Illness Chief Complaint: I keep coughing Primary Care Provider: Yeni Moreira 88 yo female with h/o HTN, GERD but no serious issues, presented to the ED today with 7 day history of cough, worsening dyspnea. The patient has been healthy her whole life, reports that this would be the first time she would be hospitalized since the of her youngest child. She says she started with a cough last Saturday, the cough was productive of yellow sputum. She said her symptoms seemed to improve briefly and then they returned and got worse. She has been coughing frequently, still with scant yellow sputum. Has some chest pain, lower rib pain worse when she takes a deep breath or coughs. Experiencing some low grade fevers, chills. She has been eating well. She has been ambulating well. Her dyspnea got to the point today that she reluctantly came to the ED for evaluation. Other than some cough remedies, she has not been on any medications for these symptoms. In the ED she was hypoxic on room air, 85%, but not in distress. CXR without any changes. CBC with normal WBC and BMP normal. CTA chest done due to hypoxia without obvious etiology. Showed some thickening of secretions in bronchials, some inflammation, no evidence of PE, no consolidation to suggest a pneumonia. There were some small lung nodules. She ambulated in the ED and her saturations dropped to 83% on room air and she felt more dyspneic. She reluctantly agreed to staying for observation. Al lergies Allergy/AdvReac Type Severity Reaction Status Date / Time lisinopril Allergy Unknown MYALGIA Verified 01/18/19 09:11 codeine AdvReac Unknown "HIGH" Verified 01/18/19 09:11 donepezil [From Aricept] AdvReac Unknown Unknown Unverified 01/18/19 09:32 morphine AdvReac Unknown Unknown Unverified 01/18/19 09:32 Opioids - Morphine Analogues AdvReac Unknown Unknown Unverified 01/18/19 09:32 Home Medications Home Medications Medication Instructions Recorded Confirmed Type docusate sodium 100 mg capsule 100 mg PO BID PRN #60 cap 09/13/18 01/18/19 Rx fluocinonide 0.05 % topical 1 appln TOPICAL BID #60 gm 09/13/18 01/18/19 History ointment glucosamine 750 dp-xtjsbqllvku-[id number] 1 tab PO TIDM tab 09/13/18 01/18/19 History no1 644 mg-C 30 mg-erick 1 mg tablet [id number] 200 mcg-vit K 15 1 tab PO QAM tab 09/13/18 01/18/19 History mcg-lycope 150 pxx-bidfwz-huvg tablet sennosides 8.6 mg tablet 8.6 mg PO BID #60 tab 01/13/19 01/18/19 History calcium carbonate-vitamin D3 1 tab PO QAM 01/18/19 01/18/19 History [Calcium 500 + D] cholecalciferol (vitamin D3) 2,000 unit PO QAM 01/18/19 01/18/19 History [Vitamin D3] escitalopram oxalate [Lexapro] 10 mg PO QAM 01/18/19 01/18/19 History hydrochlorothiazide 12.5 mg PO QAM 01/18/19 01/18/19 History omeprazole 20 mg PO QAM 01/18/19 01/18/19 History pseudoephedrine-guaifenesin 1 tab PO BID PRN 01/18/19 01/18/19 History [Mucinex D] verapamil 240 mg PO HS 01/18/19 01/18/19 History Past Med/Surg History Medical History Aortic valve sclerosis (Acute) Atrial premature beats (Acute) Cervicalgia (Acute) Velez angioma (Acute) Constipation (Chronic) Depression with anxiety (Chronic) Diverticulitis of colon (Acute) Hepatic lesion (Acute) Herpes zoster without complication (Acute) Hyperlipidemia (Acute) Hypertension (Chronic) Mitral regurgitation (Acute) Murmur (Acute) Osteopenia (Acute) Paroxysmal SVT (supraventricular tachycardia) (Acute) Peripheral neuropathy (Acute) Seborrheic keratosis (Acute) Short-term memory loss (Chronic) Tubular adenoma of colon (Acute) Surgical History Hx of cholecystectomy Hx of oral surgery Hx of tubal ligation Social History Preferred Language: Setswana Communication Ability: Effective Ramp Manager Required: No Beliefs That Will Affect Care: None marital status: / Current Living Situation: Personal Care Facility Current Living Situation Comment: [facility] current occupational status: retired Other Information That Helps Us Care for You: No Feels Safe at Home: Yes Safety Concerns: Feels Safe At This Time Smoking Status: Never smoker Hx Alcohol Use: No Hx Substance Use: No caffeine: Yes Dental Care, Regularly: No Physical Activity Frequency: 1-2 Times per Week Seatbelt Use: always Sunscreen Use: No Review of Systems Review of Systems: All systems reviewed & are unremarkable except as noted in HPI & below Constitutional: + fever and + chills; no sweats, no fatigue, no weakness and no anorexia Respiratory: + cough, + chest congestion, + dyspnea, + dyspnea on exertion, + pain with cough and + sputum production; no wheezing Cardiovascular: no chest pain, no palpitations, no syncope and no edema Gastrointestinal: no abdominal pain, no nausea, no vomiting, no constipation and no diarrhea/loose stools Genitourinary: no dysuria, no difficulty urinating, no urinary frequency and no urinary hesitancy Physical Exam Constitutional: WD/WN, vitals as above Eyes: PERRL, conjunctivae normal, anicteric sclerae ENMT: external ear and nose normal, oropharynx normal Neck: trachea midline, no thyromegaly Respiratory: normal respiratory effort; no respiratory distress Auscultation: + rhonchi and + wheezes (anteriorly, bilateral); no crackles and no rales Cardiovascular: Rate/Rhythm: regular rate and regular rhythm Heart Sounds: normal S1, normal S2 and + murmur (systolic) Vessels: no JVD Extremities: normal capillary refill; no edema Gastrointestinal (Abdomen): normal bowel sounds, soft, nontender, no hepatosplenomegaly Musculoskeletal: no cyanosis or clubbing, extremities motor strength 5/5 Skin: no rashes, warm and dry Neurologic: patellar DTR's 2+ bilat, sensation intact and PERRL, EOMI, accommodation nl, no face palsy, no dysarthria Psychiatric: A+Ox3, euthymic affect Lymphatic: no cervical or axillary lymphadenopathy Results & Data Vital Signs (Past 12 Hours) Vital Signs Temp Pulse Pulse Pulse Resp Resp BP 01/18/19 12:21 84 24 01/18/19 12:13 94 H 22 01/18/19 11:00 85 18 01/18/19 09:02 85 18 01/18/19 08:02 37.0 C 97 H 36 H 228/93 H BP Pulse Ox Pulse Ox 01/18/19 12:21 182/87 H 96 01/18/19 12:13 83 L 01/18/19 11:00 166/99 H 94 01/18/19 09:02 190/91 H 95 01/18/19 08:02 85 L Laboratory Results Laboratory Results - last 24 hr 01/18/19 01/18/19 01/18/19 08:51 08:51 08:51 WBC 10.13 RBC 4.79 Hgb 15.0 Hct 43.7 MCV 91.2 MCH 31.3 MCHC 34.3 RDW Std Deviation 42.9 RDW Coeff of Ivory 12.9 Plt Count 186 MPV 9.9 Immature Gran % (Auto) 0.1 Neut % (Auto) 80.2 Lymph % (Auto) 10.7 Hettinger % (Auto) 7.3 Eos % (Auto) 1.5 Baso % (Auto) 0.2 Immature Gran # (Auto) 0.01 Neut # (Auto) 8.13 H Lymph # (Auto) 1.08 L Hettinger # (Auto) 0.74 H Eos # (Auto) 0.15 Baso # (Auto) 0.02 Sodium 135 L Potassium Chloride 99 Carbon Dioxide 32 Anion Gap 4.0 BUN 10 Creatinine 0.81 Est Cr Clr Drug Dosing 49.6 Est GFR ( Amer) 76.2 Est GFR (Non-Af Amer) 65.8 BUN/Creatinine Ratio 11.9 Glucose 145 H Calcium 9.5 Magnesium Total Bilirubin 0.7 AST ALT 23 Alkaline Phosphatase 82 Troponin I < 0.015 NT-Pro-B Natriuret Pep 136 Total Protein 7.6 Albumin 3.4 Globulin 4.2 H Albumin/Globulin Ratio 0.8 L Lipase 38 L TSH 2.700 Urine Color Urine Appearance Urine pH Ur Specific [place] Urine Protein Urine Glucose (UA) Urine Ketones Urine Blood Urine Nitrite Urine Bilirubin Urine Urobilinogen Ur Leukocyte Esterase 01/18/19 01/18/19 09:38 12:11 WBC RBC Hgb Hct MCV MCH MCHC RDW Std Deviation RDW Coeff of Ivory Plt Count MPV Immature Gran % (Auto) Neut % (Auto) Lymph % (Auto) Hettinger % (Auto) Eos % (Auto) Baso % (Auto) Immature Gran # (Auto) Neut # (Auto) Lymph # (Auto) Hettinger # (Auto) Eos # (Auto) Baso # (Auto) Sodium Potassium 3.8 Chloride Carbon Dioxide Anion Gap BUN Creatinine Est Cr Clr Drug Dosing Est GFR ( Amer) Est GFR (Non-Af Amer) BUN/Creatinine Ratio Glucose Calcium Magnesium 1.9 Total Bilirubin AST 14 L ALT Alkaline Phosphatase Troponin I NT-Pro-B Natriuret Pep Total Protein Albumin Globulin Albumin/Globulin Ratio Lipase TSH Urine Color Pending Urine Appearance Pending Urine pH Pending Ur Specific [place] Pending Urine Protein Pending Urine Glucose (UA) Pending Urine Ketones Pending Urine Blood Pending Urine Nitrite Pending Urine Bilirubin Pending Urine Urobilinogen Pending Ur Leukocyte Esterase Pending Diagnostic Findings XR chest 1V portable FINDINGS: Cardiac silhouette is mildly enlarged, unchanged. Calcified plaque of the thoracic aortic arch. No pneumothorax, pleural effusion, focal airspace consolidation or overt pulmonary edema. Lungs are mildly hyperinflated. Degenerative changes of the shoulders and spine. IMPRESSION: No acute process. CT chest IMPRESSION: 1. Cardiomegaly without evidence of pulmonary thromboembolic disease. The study is mildly limited secondary to respiratory motion artifact as above. 2. No pleural effusion or focal airspace consolidation typical for pneumonia. 3. Prior granulomatous disease. Additionally, there are a few prominent and mildly enlarged subcarinal and hilar lymph nodes which are nonspecific. 4. There are a few subpleural nodules of the left lower lobe, largest of which measures 8 x 5 mm. Follow-up guidelines provided below. 5. Bilateral bronchial wall thickening. Correlate clinically to exclude bronchitis or inflammatory airway disease. Code Status & VTE Plan Code Status full code VTE Prophylaxis Plan VTE Prophylaxis will be ordered: Yes PG Care Time/CCT Total # of Minutes Spent Total Time Spent with Patient: Total time spent is greater than 50% in coordination of care (as documented) at patient's floor/unit and/or counseling patient: (1) Dyspnea Dyspnea type: unspecified Qualified Code(s): R06.00 - Dyspnea, unspecified
[2019-01-18] MEDS ORDERED: ONDANSETRON INJ 2 MG/ML 2 ML VIAL IV PRN (14:36)
[2019-01-18 14:46] LABS: Appearance Urine Clear (Clear); Bacteria Urine Automated Negative (Negative); Bilirubin Urine Negative (Negative); Blood Urine Trace (Negative); Cast Urine Automated 0 /lpf (0-5); Color Urine Yellow; Glucose Urine UA Negative (Negative); Ketones Urine Negative (Negative); Leukocyte Esterase Urine Negative (Negative); Nitrite Urine Negative (Negative); Protein Urine Negative (Negative); RBC Urine Automated 0-4 /hpf (0-4); Specific Gravity Urine > 1.045 (1.000-1.030); Urobilinogen Urine Negative (Negative); WBC Urine Automated 0 /hpf (0-5)
[2019-01-18] MEDS ORDERED: ACETAMINOPHEN 325 MG TAB PO PRN (15:00)
[2019-01-18] MEDS ORDERED: ENOXAPARIN INJ 40 MG/0.4 ML SYR SQ SCH (15:00)
[2019-01-18] MEDS: ALBUT/IPRATROP 3MG/0.5MG NEB 3 ML VIAL NEB SCH ×2 (15:14→19:01)
[2019-01-18] MEDS: AZITHROMYCIN 250 MG TAB PO SCH (17:54)
[2019-01-18] MEDS: predniSONE 20 MG TAB PO SCH (17:54)
[2019-01-18 19:01] LABS: Influenza A virus by PCR Neg for Influ A (Neg); Influenza B virus by PCR Neg for Influ B (Neg)
[2019-01-18] MEDS ORDERED: VERAPAMIL HCL 240 MG TABCR PO SCH (21:00)
[2019-01-18] MEDS: SENNA 8.6 MG TAB PO SCH (21:29)
[2019-01-18] MEDS: FLUOCINONIDE 0.05% OINT 15 GM TUBE EXT SCH (21:30)
[2019-01-19] MEDS: ALBUT/IPRATROP 3MG/0.5MG NEB 3 ML VIAL NEB SCH ×3 (07:14→14:45)
[2019-01-19 07:38] LABS: Basophils # (auto) 0.01 K/uL (0-0.2); Basophils % (auto) 0.2 %; Eosinophils # (auto) 0.01 K/uL (0-0.5); Eosinophils % (auto) 0.2 %; Hematocrit (blood only) 41.6 % (37-47); Hemoglobin 14.2 g/dL (12.0-16.0); Immature Granulocytes # (auto) 0.01 K/uL (0.00-0.02); Immature Granulocytes % (auto) 0.2 %; Lymphocytes % (auto) 26.4 %; Mean Corpuscular Hemoglobin 31.5 pg (25-34); Mean Corpuscular Hgb Conc 34.1 g/dL (32-36); Mean Corpuscular Volume 92.2 fL (80-100); Mean Platelet Volume 9.6 fL (7.4-10.4); Monocytes # (auto) 0.39 K/uL (0.11-0.59); Monocytes % (auto) 6.9 %; Neutrophils # (auto) 3.77 K/uL (1.4-6.5); Neutrophils % (auto) 66.1 %; Platelet Count 192 K/uL (130-400); RDW Standard Deviation 43.6 fL (36.4-46.3); Red Blood Count 4.51 M/uL (4.2-5.4); White Blood Count 5.69 K/uL (4.8-10.8)
[2019-01-19] MEDS: AZITHROMYCIN 250 MG TAB PO SCH (08:03)
[2019-01-19 08:04] LABS: BUN Creatinine Ratio 18.8 (10-20); Calcium 9.9 mg/dl (8.5-10.1); Creatinine Clr Calc Pharmacy 52.8 ml/min; Est GFR (African American) 82.3
[2019-01-19] MEDS: predniSONE 20 MG TAB PO SCH (08:04)
[2019-01-19] MEDS: SENNA 8.6 MG TAB PO SCH (08:04)
[2019-01-19] MEDS ORDERED: CALCIUM 600MG + VIT D 400 IU TAB PO SCH (09:00)
[2019-01-19] MEDS ORDERED: CHOLECALCIFEROL 1,000 UNITS TAB PO SCH (09:00)
[2019-01-19] MEDS ORDERED: ESCITALOPRAM OXALATE 10 MG TAB PO SCH (09:00)
[2019-01-19] MEDS ORDERED: CEROVITE ADV FORMULA TAB PO SCH (09:00)
[2019-01-19] MEDS ORDERED: PANTOprazole 40 MG TAB PO SCH (09:00)
[2019-01-19] MEDS: FLUOCINONIDE 0.05% OINT 15 GM TUBE EXT SCH (10:21)
--- NOTE | 2019-01-19 10:47 | XCELERA ---
[id number] [id number]
--- NOTE | 2019-01-19 14:50 | Discharge Summary ---
Date of Service January 19, 2019 Admission HPI Per Admitting Provider 88 yo female with h/o HTN, GERD but no serious issues, presented to the ED today with 7 day history of cough, worsening dyspnea. The patient has been healthy her whole life, reports that this would be the first time she would be hospitalized since the of her youngest child. She says she started with a cough last Saturday, the cough was productive of yellow sputum. She said her symptoms seemed to improve briefly and then they returned and got worse. She has been coughing frequently, still with scant yellow sputum. Has some chest pain, lower rib pain worse when she takes a deep breath or coughs. Experiencing some low grade fevers, chills. She has been eating well. She has been ambulating well. Her dyspnea got to the point today that she reluctantly came to the ED for evaluation. Other than some cough remedies, she has not been on any medications for these symptoms. In the ED she was hypoxic on room air, 85%, but not in distress. CXR without any changes. CBC with normal WBC and BMP normal. CTA chest done due to hypoxia without obvious etiology. Showed some thickening of secretions in bronchials, some inflammation, no evidence of PE, no consolidation to suggest a pneumonia. There were some small lung nodules. She ambulated in the ED and her saturations dropped to 83% on room air and she felt more dyspneic. She reluctantly agreed to staying for observation. Principal Diagnosis Bronchopneumonia Discharge Exam Constitutional WD/WN, vitals as above Eyes PERRL, conjunctivae normal, anicteric sclerae ENMT external ear and nose normal, oropharynx normal Neck trachea midline, no thyromegaly Respiratory normal respiratory effort; no respiratory distress Auscultation: lungs clear to auscultation bilaterally; no crackles, no rales, no rhonchi and no wheezes Cardiovascular Rate/Rhythm: regular rate and regular rhythm Heart Sounds: normal S1, normal S2 and + murmur (systolic) Vessels: no JVD Extremities: normal capillary refill; no edema Gastrointestinal (Abdomen) normal bowel sounds, soft, nontender, no hepatosplenomegaly Musculoskeletal no cyanosis or clubbing, extremities motor strength 5/5 Skin no rashes, warm and dry Neurologic patellar DTR's 2+ bilat, sensation intact and PERRL, EOMI, accommodation nl, no face palsy, no dysarthria Psychiatric A+Ox3, euthymic affect Lymphatic no cervical or axillary lymphadenopathy Discharge Data Allergies Allergy/AdvReac Type Severity Reaction Status Date / Time lisinopril Allergy Unknown MYALGIA Verified 01/18/19 09:11 codeine AdvReac Unknown "HIGH" Verified 01/18/19 09:11 donepezil [From Aricept] AdvReac Unknown Unknown Unverified 01/18/19 09:32 morphine AdvReac Unknown Unknown Unverified 01/18/19 09:32 Opioids - Morphine Analogues AdvReac Unknown Unknown Unverified 01/18/19 09:32 Consultations 01/18/19 14:36 Consult Case Management - Discharge Planning Routine Ordered Studies 01/18/19 09:46 CT angio chest PE protocol Stat Hospital Course (1) Bronchial pneumonia: wheezing on exam bilaterally, more pronounced anteriorly at the time of admission resolved on the day of discharge CT chest showed some thickening of bronchial smith, no consolidation, no PE treated with Prednisone 40mg daily, Duoneb, Zithromax 500mg PO daily will d/c home on Prednisone 40mg daily for 5 more days, Zithromax 500mg PO daily for three more days follow up with physician at [facility] (2) Hypoxia: Acute hypoxic respiratory failure due to bronchial pneumonia saturations 85% on room air at rest, dropped to 83% when ambulating felt better with oxygen in place no history of COPD, no obvious pneumonia on CT, no PE, no signs of heart failure echo essentially normal 2 step done on day of discharge, no need for home oxygen (3) Dyspnea: due to bronchial pneumonia treat as below much improved (4) Murmur: mild to moderate normal EF Total Time Total Time Spent Total Time Spent (In Minutes): 25 minutes Total Time Includes: Examination of the Patient, Discharge Planning and Medication Reconciliation Discharge Plan Discharge Items Patient Disposition: Personal Snf Reason For Visit: HYPOXIC RESPIRATORY FAILURE,BRONCHIAL PNEUMONIA Discharge Diagnosis: Acute hypoxia Bronchopneumonia Condition on Discharge: Good Goals: complete a course of antibiotics and Prednisone use inhaler as needed for shortness of breath Activity: Resume your previous activity Non-emergency contact: Primary Care Provider Call non-emergency contact if: you have any medication questions, your symptoms worsen and you have a fever Follow-up/Referrals: Lillie Agudelo [Primary Care Provider] - Diet: Heart Healthy Addtl Attending Provider Instructions: Medications: - Prednisone: 40mg daily for 5 more days, no need for taper as total days of treatment only 7 - ZITHROMAX: 500mg daily for 3 more days - ALBUTEROL: use inhaler, 2 puffs, every 6 hours as needed for increased shortness of breath Bronchopneumonia with hypoxia responding well to Prednisone, Zithromax and nebulizers titrated off of oxygen will d/c back home, follow up with PCP in one week Pending Studies at Discharge: No Stand-Alone Forms: My [place], Smoking Cessation Skilled Items Patient informed of condition?: Yes DNR: No Discharge Level of Care: Other Communicable Disease: No Discharge Prognosis: Stable Lines: None Urinary Catheter: No Medications and DC Order Prescriptions: New azithromycin [Zithromax] 250 mg Tablet 500 mg PO QAM 3 Days Qty: 6 RF: 0 prednisone 20 mg Tablet 40 mg PO QAM 5 Days Qty: 10 RF: 0 albuterol sulfate 90 mcg/actuation HFA aerosol inhaler 1 puffs INH Q6H PRN (Reason: shortness of breath or wheezing) 7 Days Qty: 8.5 RF: 3 Continued Osteo Bi-Flex Triple Strength 750 mg-644 mg- 30 mg-1 mg tablet 1 tab PO TIDM RF: 0 fluocinonide 0.05 % ointment 1 appln topical BID Qty: 60 RF: 0 Ocuvite Eye Plus Multi 200-15-150 mcg tablet 1 tab PO QAM RF: 0 docusate sodium 100 mg capsule 100 mg PO BID PRN (Reason: constipation) Qty: 60 RF: 0 sennosides 8.6 mg tablet 8.6 mg PO BID Qty: 60 RF: 0 pseudoephedrine-guaifenesin [Mucinex D] 60-600 mg Tablet Extended Release 12 Hr 1 tab PO BID PRN (Reason: Cold Symptoms) RF: 0 cholecalciferol (vitamin D3) [Vitamin D3] 2,000 unit Tablet 2,000 unit PO QAM RF: 0 hydrochlorothiazide 12.5 mg capsule 12.5 mg PO QAM RF: 0 omeprazole 20 mg capsule,delayed release(DR/EC) 20 mg PO QAM RF: 0 verapamil 240 mg tablet extended release 240 mg PO HS RF: 0 escitalopram oxalate [Lexapro] 10 mg tablet 10 mg PO QAM RF: 0 calcium carbonate-vitamin D3 [Calcium 500 + D] 500 mg(1,250mg) -200 unit tablet 1 tab PO QAM RF: 0 Discharge Orders: Discharge Order (Routine); Ordered 01/19/19 Ordered By: Kyler Lucio Admission Data Admit Date/Time: 01/18/19 13:44 Attending Provider: Kyler Lucio Admit Provider: Kyler Lucio Primary Care Provider: Lillie Agudelo Other Interventions: Discharge Summary Assessment (RN) Last Done: 01/19/19 15:25 DC Date/Time DO NOT enter until pt leaves facility: 01/19/19 16:43
--- NOTE | 2019-01-19 17:51 | Medical Student Progress Note ---
Date of Service January 19, 2019 Assessment & Plan (1) Bronchial pneumonia: Elsy was treated with Prednisone 40mg daily, Duoneb, Zithromax 500mg PO daily. She is clinically stable and ready for discharge. She will continue zithromax for 5 days and was given a PRN albuterol inhaler. Elsy was instructed to follow-up with her PCP. Subjective Elsy feels significantly better today. She does not have any dyspnea at rest. She was able to walk with physical therapy using a walker. Review of Systems Constitutional: + fever and + chills; no sweats, no fatigue, no weakness and no anorexia Respiratory: + cough, + chest congestion, + dyspnea, + dyspnea on exertion, + pain with cough and + sputum production; no wheezing Cardiovascular: no chest pain, no dyspnea on exertion and no palpitations Gastrointestinal: no abdominal pain, no nausea and no vomiting Genitourinary: no dysuria, no urinary frequency and no urinary incontinence Neurologic: no behavioral changes and no confusion Endocrine: no fatigue Hematologic / Lymphatic: no night sweats and no unexplained weight loss Physical Exam Constitutional: WD/WN, vitals as above Eyes: PERRL, conjunctivae normal, anicteric sclerae ENMT: external ear and nose normal, oropharynx normal Neck: trachea midline, no thyromegaly Respiratory: normal respiratory effort; no respiratory distress Auscultation: + rhonchi and + wheezes (anteriorly, bilateral); no crackles and no rales Cardiovascular: Rate/Rhythm: regular rate and regular rhythm Heart Sounds: normal S1, normal S2 and + murmur (systolic) Vessels: no JVD Extremities: normal capillary refill; no edema Gastrointestinal (Abdomen): normal bowel sounds, soft, nontender, no hepatosplenomegaly Musculoskeletal: no cyanosis or clubbing, extremities motor strength 5/5 Skin: no rashes, warm and dry Neurologic: patellar DTR's 2+ bilat, sensation intact and PERRL, EOMI, accommodation nl, no face palsy, no dysarthria Psychiatric: A+Ox3, euthymic affect Lymphatic: no cervical or axillary lymphadenopathy Results & Data Vital Signs (Past 12 Hours) Vital Signs Temp Pulse Pulse Pulse Pulse Pulse Resp 01/19/19 15:25 36.5 C 73 92 H 18 01/19/19 14:46 92 H 18 01/19/19 12:34 94 H 88 89 01/19/19 11:13 82 16 01/19/19 07:25 36.5 C 73 16 01/19/19 07:15 73 16 Resp Resp Resp BP BP Pulse Ox Pulse Ox 01/19/19 15:25 173/76 H 123/75 93 01/19/19 14:46 93 01/19/19 12:34 20 18 18 92 01/19/19 11:13 95 01/19/19 07:25 173/76 H 97 01/19/19 07:15 98 Pulse Ox Pulse Ox 01/19/19 15:25 01/19/19 14:46 01/19/19 12:34 94 94
== END 2019-01-19 16:43 | disposition home or self-care (01) | DRG 193 ==
LOC: ED 07:57 → 2W 13:44

== ENCOUNTER 2019-03-13 16:42 | Observation (INO) ==
[2019-03-13] MEDS ORDERED: ALBUT/IPRATROP 3MG/0.5MG NEB 3 ML VIAL NEB STA ×2 (17:27→19:35)
[2019-03-13 17:34] LABS: Basophils # (auto) 0.02 K/uL (0-0.2); Basophils % (auto) 0.4 %; Eosinophils # (auto) 0.27 K/uL (0-0.5); Eosinophils % (auto) 4.8 %; Hematocrit (blood only) 41.6 % (37-47); Hemoglobin 14.3 g/dL (12.0-16.0); Immature Granulocytes # (auto) 0.01 K/uL (0.00-0.02); Immature Granulocytes % (auto) 0.2 %; Lymphocytes # (auto) 2.14 K/uL (1.2-3.4); Lymphocytes % (auto) 38.1 %; Mean Corpuscular Hemoglobin 31.6 pg (25-34); Mean Corpuscular Hgb Conc 34.4 g/dL (32-36); Mean Corpuscular Volume 91.8 fL (80-100); Mean Platelet Volume 10.4 fL (7.4-10.4); Monocytes # (auto) 0.47 K/uL (0.11-0.59); Monocytes % (auto) 8.4 %; Neutrophils % (auto) 48.1 %; Platelet Count 178 K/uL (130-400); RDW Coefficient of Variation 13.8 % (11.5-14.5); RDW Standard Deviation 46.5 fL (36.4-46.3); Red Blood Count 4.53 M/uL (4.2-5.4); White Blood Count 5.61 K/uL (4.8-10.8)
--- NOTE | 2019-03-13 17:42 | XRay Report ---
SINGLE VIEW CHEST CLINICAL HISTORY: Atypical chest pain. FINDINGS: An AP, portable, upright chest radiograph is compared to chest x-ray and chest CT dated 01/18/2019. The heart is enlarged noting atherosclerotic calcification of the thoracic aorta. Chronic int erstitial thickening is similar to previous. There is no airspace consolidation or large pleural effu caitlin. No pneumothorax is seen. The skeletal structures are osteopenic. The bony thorax is grossly int act. IMPRESSION: Cardiomegaly with no active disease in the chest. ACT 112: Negative or not required by law. Electronically signed by: Juan Jose Navas M.D. 03/13/2019 5:40 PM
[2019-03-13 17:50] LABS: Alanine Aminotransferase 24 U/L (12-78); Albumin Level 3.4 gm/dl (3.4-5.0); Aspartate Aminotransferase 21 U/L (15-37); BUN Creatinine Ratio 13.2 (10-20); Blood Urea Nitrogen 11 mg/dl (7-18); Calcium 8.9 mg/dl (8.5-10.1); Carbon Dioxide 31 mmol/L (21-32); Chloride 102 mmol/L (98-107); Est GFR (African American) 76.2; Est GFR (Non-African American) 65.8; Glucose 110 mg/dl (70-99); Lipase 53 U/L (73-393); Potassium 3.5 mmol/L (3.5-5.1); Sodium 137 mmol/L (136-145)
[2019-03-13 17:55] LABS: Albumin Globulin Ratio 0.8 (0.9-2); Alkaline Phosphatase 73 U/L (45-117); Bilirubin,Total 0.3 mg/dl (0.2-1); Globulin 4.5 gm/dl (2.5-4.0); Total Protein 7.9 gm/dl (6.4-8.2); Troponin I < 0.015 ng/ml (0-0.045)
[2019-03-13 18:02] LABS: Partial Thromboplastin Ratio 1.1; Prothrombin Time 10.7 Seconds (9.0-12.0)
[2019-03-13] MEDS ORDERED: methylPREDNISolone 125 MG/2 ML VIAL IV STA (19:35)
[2019-03-13 21:17] LABS: D Dimer 660 ug/L FEU (0-500)
[2019-03-13] MEDS ORDERED: OPTIRAY 320 125ml IV PRN (21:49)
--- NOTE | 2019-03-13 22:03 | History & Physical Report ---
Date of Service March 13, 2019 Assessment & Plan (1) Dyspnea: Elsy Eldridge is a 88 y/o F with PMH significant for HTN, HLD, and Depression with anxiety; presented to the emergency room with central chest pressure and shortness of breath starting this morning Dyspnea: - ?if this chest pressure and shortness of breath is 2/2 patient's anxiety about social isolation vs pulmonary embolism vs 2/2 respiratory suppression from restart of ativan - D-dimer 660; negative troponin - CXR negative for active disease; CTA negative for PE - Duoneb PRN available - supplemental O2 as needed to maintain sats greater than 92% - flutter valve TID Depression with anxiety: - continue home lexapro 10mg - hold home Ativan Hypertension: - continue home verapamil GERD: - continue home omeprazole Diet: Regular Code: Full code (2) Depression with anxiety: (3) Hypertension: (4) GERD (gastroesophageal reflux disease): History of Present Illness Primary Care Provider: Alyse Ruiz MD Elsy Eldridge is a 88y/o F with PMH significant for HTN, HLD, GERD, and depression with anxiety; presented to the emergency room with one day of central chest pressure and difficulty catching her breath, patient occasionally gets similar kinds of episodes when she has prolonged time periods where she is on her own and feels like she has nobody to talk with; however, this pressure did not let up like it normally does. She has not noticed any swelling in her legs or arms over this time, nor noticed any calf pain or tenderness, no headaches, no changes in vision (other than consistent worsening of her vision as she has aged). Two weeks ago was restarted on lorazepam that she takes when she starts to feel more anxious in association with her isolation at her place and when she tends to stick to being in her room away from others, she takes at most once a day and took one today prior to arrival at 1pm with no relief of her symptoms. The pressure has remained constant throughout this time, has not been a sharp pain or radiated down her arms, or moved within her chest; has no difficulty catching her breaths at this point in time. Allergies Allergy/AdvReac Type Severity Reaction Status Date / Time lisinopril Allergy Unknown MYALGIA Verified 03/13/19 18:53 codeine AdvReac Unknown "HIGH" Verified 03/13/19 18:53 donepezil [From Aricept] AdvReac Unknown Unknown Unverified 03/13/19 18:53 morphine AdvReac Unknown Unknown Unverified 03/13/19 18:53 Opioids - Morphine Analogues AdvReac Unknown Unknown Unverified 03/13/19 18:53 Home Medications Home Medications Medication Instructions Recorded Confirmed Type docusate sodium 100 mg capsule 100 mg PO BID PRN #60 cap 09/13/18 03/13/19 Rx glucosamine 750 iq-rwiivdfraym-vfb 1 tab PO TIDM tab 09/13/18 03/13/19 History no1 644 mg-C 30 mg-erick 1 mg tablet gqbopfdi-bui-QF 200 mcg-vit K 15 1 tab PO QAM tab 09/13/18 03/13/19 History mcg-lycope 150 oww-dzuhgf-icly tablet sennosides 8.6 mg tablet 8.6 mg PO BID #60 tab 01/13/19 03/13/19 History calcium carbonate-vitamin D3 1 tab PO QAM 01/18/19 03/13/19 History [Calcium 500 + D] cholecalciferol (vitamin D3) 2,000 unit PO QAM 01/18/19 03/13/19 History [Vitamin D3] escitalopram oxalate [Lexapro] 10 mg PO QAM 01/18/19 03/13/19 History hydrochlorothiazide 12.5 mg PO QAM 01/18/19 03/13/19 History omeprazole 20 mg PO QAM 01/18/19 03/13/19 History pseudoephedrine-guaifenesin 1 tab PO BID PRN 01/18/19 03/13/19 History [Mucinex D] verapamil 240 mg PO HS 01/18/19 03/13/19 History albuterol sulfate 1 puffs INH Q6H PRN 7 Days #8.5 gm 01/19/19 03/13/19 Rx triamcinolone acetonide 0.1 % 1 appln TOP BID #15 gm 02/25/19 03/13/19 Rx topical cream lorazepam 0.5 mg tablet 0.5 mg PO DAILY PRN #30 tab 03/03/19 03/13/19 Rx Past Med/Surg History Medical History Aortic valve sclerosis (Acute) Atrial premature beats (Acute) Cervicalgia (Acute) Velez angioma (Acute) Constipation (Chronic) Depression with anxiety (Chronic) Diverticulitis of colon (Acute) Hepatic lesion (Acute) Herpes zoster without complication (Acute) Hyperlipidemia (Acute) Hypertension (Chronic) Mitral regurgitation (Acute) Murmur (Acute) Osteopenia (Acute) Paroxysmal SVT (supraventricular tachycardia) (Acute) Peripheral neuropathy (Acute) Seborrheic keratosis (Acute) Short-term memory loss (Chronic) Tubular adenoma of colon (Acute) Surgical History Hx of cholecystectomy Hx of oral surgery Hx of tubal ligation Social History Preferred Language: Danish Communication Ability: Effective Sterilization Technician Required: No Beliefs That Will Affect Care: None marital status: / Current Living Situation: Personal Care Facility Current Living Situation Comment: [facility] current occupational status: retired Other Information That Helps Us Care for You: No Feels Safe at Home: Yes Safety Concerns: Feels Safe At This Time Smoking Status: Never smoker Do You Dip or Chew Tobacco: No ; Second Hand Exposure: No ; Hx Alcohol Use: No Hx Substance Use: No caffeine: Yes Dental Care, Regularly: No Physical Activity Frequency: 1-2 Times per Week Seatbelt Use: always Sunscreen Use: No Review of Systems Constitutional: no fever, no chills and no sweats Eyes: no diplopia, no photophobia and no spots in vision Ear, Nose, Mouth, Throat: no ear discharge, no tinnitus, no nasal congestion, no nasal discharge and no post nasal drip Respiratory: no cough, no hemoptysis and no wheezing Cardiovascular: no chest pain, no chest pain with activity, no radiating jaw, neck or arm pain, no palpitations and no edema Gastrointestinal: no abdominal pain, no nausea, no vomiting and no change in stools Genitourinary: no urinary frequency, no urinary hesitancy and no hematuria Psychiatric: + depression and + anxiety Hematologic / Lymphatic: no lymphadenopathy Physical Exam Constitutional: WD/WN, vitals as above Eyes: PERRL, conjunctivae normal, anicteric sclerae ENMT: external ear and nose normal, oropharynx normal Respiratory: normal respiratory effort, lungs clear to auscultation Cardiovascular: Rate/Rhythm: regular rate and regular rhythm Heart Sounds: + murmur (systolic ejection murmur best heard over right upper sternal border); no click, no gallop and no cardiac rub Vessels: no JVD Extremities: no calf tenderness and no edema Gastrointestinal (Abdomen): normal bowel sounds, soft, nontender, no hepatosplenomegaly Musculoskeletal: no cyanosis or clubbing, extremities motor strength 5/5 Lymphatic: no cervical or axillary lymphadenopathy Results & Data Vital Signs (Past 12 Hours) Vital Signs Temp Pulse Pulse Pulse Pulse Pulse Resp 03/13/19 21:24 03/13/19 21:00 92 H 03/13/19 20:30 92 H 03/13/19 20:00 83 03/13/19 19:44 79 30 H 03/13/19 19:43 80 03/13/19 19:30 75 03/13/19 19:00 78 03/13/19 18:36 03/13/19 18:35 96 H 92 H 86 03/13/19 17:43 84 16 03/13/19 16:45 37.2 C 88 24 Resp Resp Resp BP BP Pulse Ox Pulse Ox 03/13/19 21:24 88 L 03/13/19 21:00 188/97 H 03/13/19 20:30 03/13/19 20:00 169/82 H 93 03/13/19 19:44 91 03/13/19 19:43 177/101 H 90 03/13/19 19:30 03/13/19 19:00 91 03/13/19 18:36 192/102 H 03/13/19 18:35 20 20 18 87 L 03/13/19 17:43 90 03/13/19 16:45 186/112 H 92 Pulse Ox Pulse Ox 03/13/19 21:24 03/13/19 21:00 03/13/19 20:30 03/13/19 20:00 03/13/19 19:44 03/13/19 19:43 03/13/19 19:30 03/13/19 19:00 03/13/19 18:36 03/13/19 18:35 90 92 03/13/19 17:43 03/13/19 16:45 Laboratory Results 01/31/20 01/31/20 01/31/20 Range/Units 20:32 17:20 17:20 WBC (4.8-10.8) K/uL RBC (4.2-5.4) M/uL Hgb (12.0-16.0) g/dL Hct (37-47) % MCV (80-100) fL MCH (25-34) pg MCHC (32-36) g/dL RDW Std Deviation (36.4-46.3) fL RDW Coeff of Ivory (11.5-14.5) % Plt Count (130-400) K/uL MPV (7.4-10.4) fL Immature Gran % (Auto) % Neut % (Auto) % Lymph % (Auto) % [place]alle % (Auto) % Eos % (Auto) % Baso % (Auto) % Immature Gran # (Auto) (0.00-0.02) K/uL Neut # (Auto) (1.4-6.5) K/uL Lymph # (Auto) (1.2-3.4) K/uL Lasalle # (Auto) (0.11-0.59) K/uL Eos # (Auto) (0-0.5) K/uL Baso # (Auto) (0-0.2) K/uL PT (9.0-12.0) Seconds INR (0.9-1.1) APTT (21.0-31.0) Seconds PTT Ratio D-Dimer 660 H* Cancelled Sodium 137 (136-145) mmol/L Potassium 3.5 (3.5-5.1) mmol/L Chloride 102 (98-107) mmol/L Carbon Dioxide 31 (21-32) mmol/L Anion Gap 4.0 (3-11) BUN 11 (7-18) mg/dl Creatinine 0.81 (0.6-1.2) mg/dl Est Cr Clr Drug Dosing Not Reportable Est GFR ( Amer) 76.2 Est GFR (Non-Af Amer) 65.8 BUN/Creatinine Ratio 13.2 (10-20) Glucose 110 H (70-99) mg/dl Calcium 8.9 (8.5-10.1) mg/dl Total Bilirubin 0.3 (0.2-1) mg/dl AST 21 (15-37) U/L ALT 24 (12-78) U/L Alkaline Phosphatase 73 (45-117) U/L Troponin I < 0.015 (0-0.045) ng/ml Total Protein 7.9 (6.4-8.2) gm/dl Albumin 3.4 (3.4-5.0) gm/dl Globulin 4.5 H (2.5-4.0) gm/dl Albumin/Globulin Ratio 0.8 L (0.9-2) Lipase 53 L (73-393) U/L 03/13/19 03/13/19 Range/Units 17:20 17:20 WBC 5.61 (4.8-10.8) K/uL RBC 4.53 (4.2-5.4) M/uL Hgb 14.3 (12.0-16.0) g/dL Hct 41.6 (37-47) % MCV 91.8 (80-100) fL MCH 31.6 (25-34) pg MCHC 34.4 (32-36) g/dL RDW Std Deviation 46.5 H (36.4-46.3) fL RDW Coeff of Ivory 13.8 (11.5-14.5) % Plt Count 178 (130-400) K/uL MPV 10.4 (7.4-10.4) fL Immature Gran % (Auto) 0.2 % Neut % (Auto) 48.1 % Lymph % (Auto) 38.1 % Lasalle % (Auto) 8.4 % Eos % (Auto) 4.8 % Baso % (Auto) 0.4 % Immature Gran # (Auto) 0.01 (0.00-0.02) K/uL Neut # (Auto) 2.70 (1.4-6.5) K/uL Lymph # (Auto) 2.14 (1.2-3.4) K/uL Lasalle # (Auto) 0.47 (0.11-0.59) K/uL Eos # (Auto) 0.27 (0-0.5) K/uL Baso # (Auto) 0.02 (0-0.2) K/uL PT 10.7 (9.0-12.0) Seconds INR 1.0 (0.9-1.1) APTT 30.0 (21.0-31.0) Seconds PTT Ratio 1.1 D-Dimer Sodium (136-145) mmol/L Potassium (3.5-5.1) mmol/L Chloride (98-107) mmol/L Carbon Dioxide (21-32) mmol/L Anion Gap (3-11) BUN (7-18) mg/dl Creatinine (0.6-1.2) mg/dl Est Cr Clr Drug Dosing Est GFR ( Amer) Est GFR (Non-Af Amer) BUN/Creatinine Ratio (10-20) Glucose (70-99) mg/dl Calcium (8.5-10.1) mg/dl Total Bilirubin (0.2-1) mg/dl AST (15-37) U/L ALT (12-78) U/L Alkaline Phosphatase (45-117) U/L Troponin I (0-0.045) ng/ml Total Protein (6.4-8.2) gm/dl Albumin (3.4-5.0) gm/dl Globulin (2.5-4.0) gm/dl Albumin/Globulin Ratio (0.9-2) Lipase (73-393) U/L Diagnostic Findings SINGLE VIEW CHEST CLINICAL HISTORY: Atypical chest pain. FINDINGS: An AP, portable, upright chest radiograph is compared to chest x-ray and chest CT dated 01/18/2019. The heart is enlarged noting atherosclerotic calcification of the thoracic aorta. Chronic interstitial thickening is similar to previous. There is no airspace consolidation or large pleural effusion. No pneumothorax is seen. The skeletal structures are osteopenic. The bony thorax is grossly intact. IMPRESSION: Cardiomegaly with no active disease in the chest. ACT 112: Negative or not required by law. Electronically signed by: Juan Jose Navas M.D. 03/13/2019 5:[address] angio chest PE protocol CT DOSE: 407.82 mGy.cm HISTORY: 88 years-old Female with chest pressure. Acute chest pain and pressure TECHNIQUE: Multiple CTA images of the chest were obtained after the intravenous administration of 119 ml Optiray 320. Coronal and sagittal MIPS were obtained from the axial data set and were submitted for review. All measurements were obtained according to NASCET criteria. A dose lowering technique was utilized adhering to the principles of ALARA. COMPARISON: Chest radiograph of same day, CTA chest 01/18/2019 FINDINGS: CTA: Mild cardiomegaly. No pericardial effusion. Coronary arterial and aortic annular calcifications are noted. Moderate mixed plaque of the thoracic aorta. No thoracic aortic aneurysm or dissection. 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 Patency of the imaged great vessels. No mediastinal hematoma. The pulmonary arterial tree is opacified to level of the proximal subsegmental branches. The bibasilar pulmonary artery branches are suboptimally visualized secondary to respiratory motion artifact. No filling defects identified to suggest pulmonary thromboembolic disease. CT CHEST: Mildly heterogeneous appearance of the thyroid. Calcified mediastinal and hilar lymph nodes compatible with prior granulomatous disease. No pathologic lymph nodes by CT size criteria. Decreased size of the previously noted mediastinal and hilar lymph nodes. No pneumothorax or pleural effusion. Mild to moderate bronchial wall thickening with bibasilar mucous plugging. Mild subtle tree-in-bud nodules of the lung bases. No airspace consolidation typical for pneumonia. No overt pulmonary edema. 3 mm subpleural nodule of the left lower lobe, image 122 series 4 is indeterminate. 5 mm nodule of the superior segment left lower lobe with mild subpleural retraction/scarring is noted appears to be solid with mild peripheral groundglass density. Overall lesion measures up to approximately 10 mm, previously approximately 1.4 cm with central solid component measuring 8 mm. New 3 mm solid nodule of the right lower lobe, image 119 series 4 is likely infectious or inflammatory. Central airways are patent. Mild nonspecific wall thickening of the distal esophagus. Cholecystectomy. Upper abdominal vascular calcifications are noted. Hepatic steatosis. Degenerative changes of the spine and shoulders. IMPRESSION: 1. No evidence of pulmonary thromboembolic disease. 2. Bronchial wall thickening suggestive of bronchitis is noted in addition to mild bibasilar mucous plugging. 3. Mild tree-in-bud nodules of the lung bases suggest infectious or inflammatory bronchiolitis. 4. No airspace consolidation typical for pneumonia. 5. Mixed groundglass and solid nodular opacity of the superior segment left lower lobe has decreased in size from comparison and overall measures up to approximately 10 mm, previously 1.4 cm. This suggests a probable infectious or inflammatory nodule. Follow-up guidelines provided below. ACT 112: Negative or not required by law. Please refer to below summary of Fleischner criteria recommendations for follow- up of incidental CT nodules ([place] Marshall, Guidelines for management of small pulmonary nodules detected on CT scans: A statement from the Fleischner Society, Radiology 237: [phone].) Note: newly detected indeterminate nodule in persons 35 years of age or older. * Low risk patients: minimal or absent history of smoking and/or other known risk factors * high risk patients: history of smoking or of other known risk factors (e.g. first degree relative with lung cancer, or exposure to asbestos, radon, uranium) * if a nodule up to 8 mm is partly solid or is ground glass further follow-up is required after 24 months to exclude possible slow growing adenocarcinoma (YUNG) SUBSOLID NODULES Solitary part-solid nodule * nodule size <6 mm - no CT follow-up required * nodule size >=6 mm - follow-up CT at 3-6 months. If unchanged, and solid component remains <6 mm, then annual follow-up for 5 years The above report was generated using voice recognition software. It may contain grammatical, syntax or spelling errors. Electronically signed by: Rich Rico M.D. 03/13/2019 10:13 PM Code Status & VTE Plan Code Status Full Code Supervising Physician Co-Signing Physician Notes Patient was seen and examined by me personally. I reviewed the chart, the orders and discussed the case in detail with Dr. Alber Feng MD . I read this H&P and agree with its contents to entirety. No PE noted on CTA chest. However given the lung base findings suggesting infectious or inflammatory process, I will ask pulmonology to evaluate. Resident Activity Tracking Resident Involvement: Resident Care Provided Care Provided: Adult [facility] Medicine (1) Dyspnea Dyspnea type: unspecified Qualified Code(s): R06.00 - Dyspnea, unspecified
[2019-03-13] MEDS ORDERED: DOCUSATE SODIUM 100 MG CAP PO PRN (22:13)
[2019-03-13] MEDS ORDERED: ACETAMINOPHEN 325 MG TAB PO PRN (22:13)
[2019-03-13] MEDS ORDERED: ALBUTEROL 0.083% NEBU SOLN 3 ML VIAL NEB PRN (22:13)
[2019-03-13] MEDS ORDERED: ALUMINUM/MAGNESIUM SUSP 30 ML UDC PO PRN (22:13)
[2019-03-13] MEDS ORDERED: MAGNESIUM HYDROXIDE SUSP 30 ML UDC PO PRN (22:13)
[2019-03-13] MEDS ORDERED: guaiFENesin 600 MG TABCR PO PRN (22:13)
--- NOTE | 2019-03-13 22:14 | CT Scan Report ---
CT angio chest PE protocol CT DOSE: 407.82 mGy.cm HISTORY: 88 years-old Female with chest pressure. Acute chest pain and pressure TECHNIQUE: Multiple CTA images of the chest were obtained after the intravenous administration of 119 ml Optiray 320. Coronal and sagittal MIPS were obtained from the axial data set and were submitted for review. All measurements were obtained according to NASCET criteria. A dose lowering technique w as utilized adhering to the principles of ALARA. COMPARISON: Chest radiograph of same day, CTA chest 01/18/2019 FINDINGS: CTA: Mild cardiomegaly. No pericardial effusion. Coronary arterial and aortic annular calcifications are noted. Moderate mixed plaque of the thoracic aorta. No thoracic aortic aneurysm or dissection. Hi gh-grade stenosis at the origin of the celiac trunk with mild poststenotic dilation. Patency of the i vijay great vessels. No mediastinal hematoma. The pulmonary arterial tree is opacified to level of th e proximal subsegmental branches. The bibasilar pulmonary artery branches are suboptimally visualized secondary to respiratory motion artifact. No filling defects identified to suggest pulmonary thrombo embolic disease. CT CHEST: Mildly heterogeneous appearance of the thyroid. Calcified mediastinal and hilar lymph nodes compatible with prior granulomatous disease. No pathologic lymph nodes by CT size criteria. Decrease d size of the previously noted mediastinal and hilar lymph nodes. No pneumothorax or pleural effusion . Mild to moderate bronchial wall thickening with bibasilar mucous plugging. Mild subtle tree-in-bud nodules of the lung bases. No airspace consolidation typical for pneumonia. No overt pulmonary edema. 3 mm subpleural nodule of the left lower lobe, image 122 series 4 is indeterminate. 5 mm nodule of t he superior segment left lower lobe with mild subpleural retraction/scarring is noted appears to be s olid with mild peripheral groundglass density. Overall lesion measures up to approximately 10 mm, pre viously approximately 1.4 cm with central solid component measuring 8 mm. New 3 mm solid nodule of th e right lower lobe, image 119 series 4 is likely infectious or inflammatory. Central airways are vazquez nt. Mild nonspecific wall thickening of the distal esophagus. Cholecystectomy. Upper abdominal vascular c alcifications are noted. Hepatic steatosis. Degenerative changes of the spine and shoulders. IMPRESSION: 1. No evidence of pulmonary thromboembolic disease. 2. Bronchial wall thickening suggestive of bronchitis is noted in addition to mild bibasilar mucous p lugging. 3. Mild tree-in-bud nodules of the lung bases suggest infectious or inflammatory bronchiolitis. 4. No airspace consolidation typical for pneumonia. 5. Mixed groundglass and solid nodular opacity of the superior segment left lower lobe has decreased in size from comparison and overall measures up to approximately 10 mm, previously 1.4 cm. This sugge sts a probable infectious or inflammatory nodule. Follow-up guidelines provided below. ACT 112: Negative or not required by law. Please refer to below summary of Fleischner criteria recommendations for follow-up of incidental CT n odules ([place] Marshall, Guidelines for management of small pulmonary nodules detected on CT scans: A sta tement from the Fleischner Society, Radiology 237: [phone].) Note: newly detected indeterminate nodule in persons 35 years of age or older. * Low risk patients: minimal or absent history of smoking and/or other known risk factors * high risk patients: history of smoking or of other known risk factors (e.g. first degree relative with lung cancer, or exposure to asbestos, radon, uranium) * if a nodule up to 8 mm is partly solid or is ground glass further follow-up is required after 24 m onths to exclude possible slow growing adenocarcinoma (YUNG) SUBSOLID NODULES Solitary part-solid nodule * nodule size <6 mm - no CT follow-up required * nodule size >=6 mm - follow-up CT at 3-6 months. If unchanged, and solid component remains <6 mm, then annual follow-up for 5 years The above report was generated using voice recognition software. It may contain grammatical, syntax o r spelling errors. Electronically signed by: Rich Rico M.D. 03/13/2019 10:13 PM
[2019-03-13] MEDS ORDERED: PSEUDOEPHEDRINE HCL 30 MG TAB PO PRN (22:29)
--- NOTE | 2019-03-14 00:36 | Billing Data ---
Date of Service March 13, 2019 Coding Level of Care Code 39136 Initial Inpt Care Lvl 3
--- NOTE | 2019-03-14 01:12 | Emergency Department Note ---
Entered by Pau Joseph acting as a scribe for Nahun Calixto MD ED Provider Note CHIEF COMPLAINT: Chest pain HISTORY OF PRESENT ILLNESS: The patient is an 88 year old female who presents to the Emergency Room with complaints of chest pain. The patient states that she began to experience chest pain associated with shortness of breath "heavy breathing" earlier this afternoon. She admits that she was not doing anything out of the ordinary when her symptoms began. The patient took Lorazepam at 1:00PM today with no relief. However, currently she states that her chest feels a lot better and that her SOB is now improved. Additionally, she does not experience any shortness of breath when she inhales deeply. Of note, the patient has experienced similar episodes in the past and had a recent hospital admission about 1 month ago for the same. Pt denies LOC, headache, fevers, chills, diaphoresis, visual changes, neck pain, nausea, vomiting, abdominal pain, back pain, melena, hematochezia, urinary symptoms, numbness, weakness, lymphadenopathy, rash, leg pain/swelling, or other complaints. REVIEW OF SYSTEMS: See HPI for pertinent positives and negatives. A total of ten systems were reviewed and were otherwise negative. PMHx/PSHx: Bronchitis, bronchial pneumonia, dyspnea, murmur, atrial premature beats, paroxysmal SVT, aortic valve sclerosis, HTN, hyperlipidemia. SOCIAL HISTORY: Non-smoker PHYSICAL EXAM: GENERAL: Awake, alert, well-appearing, in no distress HENT: Normocephalic, atraumatic. Oropharynx unremarkable. EYES: PERRL. Normal conjunctiva. Sclera non-icteric. NECK: Inspection normal. Non-tender. Supple. No nuchal rigidity. FROM. No masses. RESPIRATORY: Clear to auscultation. No wheezes. No rales. Normal respiratory effort. CARDIAC: Normal rate. Normal rhythm. Systolic ejection murmur. No rubs. Extremities warm and well perfused. Pulses equal. No JVD. GI: Soft, non-distended. No tenderness to palpation. No rebound or guarding. No masses. RECTAL: Deferred. MUSCULOSKELETAL: Atraumatic. Chest examination reveals no tenderness. The back is symmetrical on inspection without obvious abnormality. There is no CVA tenderness to palpation. No joint edema. LOWER EXTREMITIES: Calves are equal size bilaterally and non-tender. No edema. No discoloration. NEURO: Normal sensorium. No sensory or motor deficits noted. SKIN: No rash or jaundice noted. EMERGENCY DEPARTMENT COURSE: 1722: Past medical records reviewed. The patient was evaluated in room A12B, and a complete history and physical examination were performed. 1899: Ambulatory pulse ox was 87%. 1935: I re-checked the patient and updated her on plan to admit. The patient verbally expressed understanding and agreement of the treatment plan. The patient will be evaluated for further treatment. 1939: I spoke with Dr. Miles who will further evaluate the patient. MEDICAL DECISION MAKING: Prior records/ancillary studies reviewed. Triage Nursing notes reviewed and agree them. Additional history obtained from the family. The patient's history was concerning for shortness of breath and chest discomfort. Differential diagnosis: Etiologies such as pneumonia, COPD, reactive airway disease, CHF, cardiac ischemia, pulmonary embolism, pneumothorax, musculoskeletal, infections, gastrointestinal, as well as others were entertained. Physical examination: As above. Patient was hypoxic on ambulatory. ER treatment provided: DuoNeb x2 IV Solu-Medrol On reassessment the patient felt better. Diagnostic interpretation by me: The electrocardiogram was negative for pathologic change. The labs revealed an unremarkable CBC and chemistry panel. Troponin negative. D-dimer pending. Imaging studies: Chest x-ray no acute process. Patient has hypoxia with exertion she has pain and shortness of breath. She is feeling better now after the above treatment. Further management in the hospital will be necessary. Consultation: A consultation was placed with the hospitalist. The case was discussed and diagnostics were reviewed. The patient was evaluated in the ER for further treatment. IMPRESSION: Shortness of breath, hypoxia, substernal chest pain PLAN: Admitted; being evaluated by hospitalist. The scribe's documentation has been prepared under my direction and personally reviewed by me in its entirety. I confirm that the note above accurately reflects all work, treatment, procedures, and medical decision making performed by me. Impression & Plan SOB (shortness of breath), Hypoxia, Substernal chest pain Past Med/Surg History Medical History Aortic valve sclerosis (Acute) Atrial premature beats (Acute) Cervicalgia (Acute) Velez angioma (Acute) Constipation (Chronic) Depression with anxiety (Chronic) Diverticulitis of colon (Acute) Hepatic lesion (Acute) Herpes zoster without complication (Acute) Hyperlipidemia (Acute) Hypertension (Chronic) Mitral regurgitation (Acute) Murmur (Acute) Osteopenia (Acute) Paroxysmal SVT (supraventricular tachycardia) (Acute) Peripheral neuropathy (Acute) Seborrheic keratosis (Acute) Short-term memory loss (Chronic) Tubular adenoma of colon (Acute) Surgical History Hx of cholecystectomy Hx of oral surgery Hx of tubal ligation Social History Preferred Language: Ethiopian Communication Ability: Effective Section Leader Required: No Beliefs That Will Affect Care: None marital status: / Current Living Situation: Personal Care Facility Current Living Situation Comment: [place] [facility] current occupational status: retired Other Information That Helps Us Care for You: No Feels Safe at Home: Yes Safety Concerns: Feels Safe At This Time Smoking Status: Never smoker Do You Dip or Chew Tobacco: No ; Second Hand Exposure: No ; Hx Alcohol Use: No Hx Substance Use: No caffeine: Yes Dental Care, Regularly: No Physical Activity Frequency: 1-2 Times per Week Seatbelt Use: always Sunscreen Use: No Results & Data Vital Signs Vital Signs - 24 hr 03/13/19 16:45 03/13/19 17:43 03/13/19 18:35 Temperature 37.2 C Temperature Source Oral Pulse Rate 88 Pulse Rate [Exercises] 96 H Pulse Rate [Recovery] 92 H Pulse Rate [Resting] 86 Pulse Rate [Right Finger] 84 Pulse Rate from SpO2 Sensor Respiratory Rate 24 16 Respiratory Rate [Exercises] 20 Respiratory Rate [Recovery] 20 Respiratory Rate [Resting] 18 Respiratory Effort / Characteristics Non-Labored Non-Labored Spontaneous Respiratory Depth Normal Blood Pressure 186/112 H Blood Pressure [Right Arm] Blood Pressure Mean 136 Blood Pressure Mean [Right Arm] Pulse Oximetry 92 90 Pulse Oximetry [Exercises] 87 L Pulse Oximetry [Recovery] 90 Pulse Oximetry [Resting] 92 Oxygen Delivery Method Room Air Room Air Oxygen Flow Rate Sepsis Recent Fever Within 48 Hours No Sepsis Action Taken by Nursing No Action Required 03/13/19 18:36 03/13/19 19:00 03/13/19 19:30 Temperature Temperature Source Pulse Rate 78 75 Pulse Rate [Exercises] Pulse Rate [Recovery] Pulse Rate [Resting] Pulse Rate [Right Finger] Pulse Rate from SpO2 Sensor 79 76 Respiratory Rate Respiratory Rate [Exercises] Respiratory Rate [Recovery] Respiratory Rate [Resting] Respiratory Effort / Characteristics Respiratory Depth Blood Pressure Blood Pressure [Right Arm] 192/102 H Blood Pressure Mean Blood Pressure Mean [Right Arm] 132 Pulse Oximetry 91 Pulse Oximetry [Exercises] Pulse Oximetry [Recovery] Pulse Oximetry [Resting] Oxygen Delivery Method Oxygen Flow Rate Sepsis Recent Fever Within 48 Hours Sepsis Action Taken by Nursing 03/13/19 19:43 03/13/19 19:44 03/13/19 20:00 Temperature Temperature Source Pulse Rate 80 83 Pulse Rate [Exercises] Pulse Rate [Recovery] Pulse Rate [Resting] Pulse Rate [Right Finger] 79 Pulse Rate from SpO2 Sensor 81 83 Respiratory Rate 30 H Respiratory Rate [Exercises] Respiratory Rate [Recovery] Respiratory Rate [Resting] Respiratory Effort / Characteristics Non-Labored Respiratory Depth Blood Pressure 177/101 H 169/82 H Blood Pressure [Right Arm] Blood Pressure Mean 140 121 Blood Pressure Mean [Right Arm] Pulse Oximetry 90 91 93 Pulse Oximetry [Exercises] Pulse Oximetry [Recovery] Pulse Oximetry [Resting] Oxygen Delivery Method Room Air Oxygen Flow Rate Sepsis Recent Fever Within 48 Hours Sepsis Action Taken by Nursing 03/13/19 20:30 03/13/19 21:00 03/13/19 21:24 Temperature Temperature Source Pulse Rate 92 H 92 H Pulse Rate [Exercises] Pulse Rate [Recovery] Pulse Rate [Resting] Pulse Rate [Right Finger] Pulse Rate from SpO2 Sensor 92 H 92 H Respiratory Rate Respiratory Rate [Exercises] Respiratory Rate [Recovery] Respiratory Rate [Resting] Respiratory Effort / Characteristics Respiratory Depth Blood Pressure 188/97 H Blood Pressure [Right Arm] Blood Pressure Mean 155 Blood Pressure Mean [Right Arm] Pulse Oximetry 88 L Pulse Oximetry [Exercises] Pulse Oximetry [Recovery] Pulse Oximetry [Resting] Oxygen Delivery Method Room Air Oxygen Flow Rate 2 Sepsis Recent Fever Within 48 Hours Sepsis Action Taken by Longterm Medications Current Medication List: was personally reviewed by me Laboratory Data Attestation: I reviewed the patient's lab results. Result diagrams: 03/13/19 17:20 03/13/19 17:20 Lab Results 03/13/19 03/13/19 03/13/19 Range/Units 17:20 17:20 17:20 WBC 5.61 (4.8-10.8) K/uL RBC 4.53 (4.2-5.4) M/uL Hgb 14.3 (12.0-16.0) g/dL Hct 41.6 (37-47) % MCV 91.8 (80-100) fL MCH 31.6 (25-34) pg MCHC 34.4 (32-36) g/dL RDW Std Deviation 46.5 H (36.4-46.3) fL RDW Coeff of Ivory 13.8 (11.5-14.5) % Plt Count 178 (130-400) K/uL MPV 10.4 (7.4-10.4) fL Immature Gran % (Auto) 0.2 % Neut % (Auto) 48.1 % Lymph % (Auto) 38.1 % [place] % (Auto) 8.4 % Eos % (Auto) 4.8 % Baso % (Auto) 0.4 % Immature Gran # (Auto) 0.01 (0.00-0.02) K/uL Neut # (Auto) 2.70 (1.4-6.5) K/uL Lymph # (Auto) 2.14 (1.2-3.4) K/uL [place] # (Auto) 0.47 (0.11-0.59) K/uL Eos # (Auto) 0.27 (0-0.5) K/uL Baso # (Auto) 0.02 (0-0.2) K/uL PT 10.7 (9.0-12.0) Seconds INR 1.0 (0.9-1.1) APTT 30.0 (21.0-31.0) Seconds PTT Ratio 1.1 D-Dimer Sodium 137 (136-145) mmol/L Potassium 3.5 (3.5-5.1) mmol/L Chloride 102 (98-107) mmol/L Carbon Dioxide 31 (21-32) mmol/L Anion Gap 4.0 (3-11) BUN 11 (7-18) mg/dl Creatinine 0.81 (0.6-1.2) mg/dl Est Cr Clr Drug Dosing Not Reportable Est GFR ( Amer) 76.2 Est GFR (Non-Af Amer) 65.8 BUN/Creatinine Ratio 13.2 (10-20) Glucose 110 H (70-99) mg/dl Calcium 8.9 (8.5-10.1) mg/dl Total Bilirubin 0.3 (0.2-1) mg/dl AST 21 (15-37) U/L ALT 24 (12-78) U/L Alkaline Phosphatase 73 (45-117) U/L Troponin I < 0.015 (0-0.045) ng/ml Total Protein 7.9 (6.4-8.2) gm/dl Albumin 3.4 (3.4-5.0) gm/dl Globulin 4.5 H (2.5-4.0) gm/dl Albumin/Globulin Ratio 0.8 L (0.9-2) Lipase 53 L (73-393) U/L 03/13/19 03/13/19 Range/Units 17:20 20:32 WBC (4.8-10.8) K/uL RBC (4.2-5.4) M/uL Hgb (12.0-16.0) g/dL Hct (37-47) % MCV (80-100) fL MCH (25-34) pg MCHC (32-36) g/dL RDW Std Deviation (36.4-46.3) fL RDW Coeff of Ivory (11.5-14.5) % Plt Count (130-400) K/uL MPV (7.4-10.4) fL Immature Gran % (Auto) % Neut % (Auto) % Lymph % (Auto) % [place] % (Auto) % Eos % (Auto) % Baso % (Auto) % Immature Gran # (Auto) (0.00-0.02) K/uL Neut # (Auto) (1.4-6.5) K/uL Lymph # (Auto) (1.2-3.4) K/uL [place] # (Auto) (0.11-0.59) K/uL Eos # (Auto) (0-0.5) K/uL Baso # (Auto) (0-0.2) K/uL PT (9.0-12.0) Seconds INR (0.9-1.1) APTT (21.0-31.0) Seconds PTT Ratio D-Dimer Cancelled 660 H* Sodium (136-145) mmol/L Potassium (3.5-5.1) mmol/L Chloride (98-107) mmol/L Carbon Dioxide (21-32) mmol/L Anion Gap (3-11) BUN (7-18) mg/dl Creatinine (0.6-1.2) mg/dl Est Cr Clr Drug Dosing Est GFR ( Amer) Est GFR (Non-Af Amer) BUN/Creatinine Ratio (10-20) Glucose (70-99) mg/dl Calcium (8.5-10.1) mg/dl Total Bilirubin (0.2-1) mg/dl AST (15-37) U/L ALT (12-78) U/L Alkaline Phosphatase (45-117) U/L Troponin I (0-0.045) ng/ml Total Protein (6.4-8.2) gm/dl Albumin (3.4-5.0) gm/dl Globulin (2.5-4.0) gm/dl Albumin/Globulin Ratio (0.9-2) Lipase (73-393) U/L Administered Medications Ioversol (Optiray 320 125ml) 119 ml IV ONCE PRN PRN Reason: Interaction Checking Stop: 03/17/19 21:48 Last Admin: 03/13/19 21:50 Dose: 119 ml Documented by: [id number] Discontinued Medications Albuterol (Duoneb) 3 ml NEB NOW STA Stop: 03/13/19 17:28 Last Admin: 03/13/19 17:41 Dose: 3 ml Documented by: [id number] Albuterol (Duoneb) 3 ml NEB NOW STA Stop: 03/13/19 19:36 Last Admin: 03/13/19 19:43 Dose: 3 ml Documented by: [id number] Methylprednisolone (Solumedrol) 125 mg IV NOW STA Stop: 03/13/19 19:36 Last Admin: 03/13/19 19:41 Dose: 125 mg Documented by: [id number] Imaging Data Radiologist's Impression: Radiology results as stated below per my review and the radiologist's interpretation: SINGLE VIEW CHEST CLINICAL HISTORY: Atypical chest pain. FINDINGS: An AP, portable, upright chest radiograph is compared to chest x-ray and chest CT dated 01/18/2019. The heart is enlarged noting atherosclerotic calcification of the thoracic aorta. Chronic interstitial thickening is similar to previous. There is no airspace consolidation or large pleural effusion. No pneumothorax is seen. The skeletal structures are osteopenic. The bony thorax is grossly intact. IMPRESSION: Cardiomegaly with no active disease in the chest. ACT 112: Negative or not required by law. Electronically signed by: Juan Jose Navas M.D. 03/13/2019 5:40 PM ECG Data Attestation: I personally reviewed and interpreted this ECG as follows: Indication: + chest pain Rate (beats per minute): 78 Rhythm: normal sinus ECG Intervals/blocks: + Normal QRS ECG [place]: + Normal ECG ST segments: no ST depression and no ST elevation ECG Findings: no PACs and no PVCs Blood Pressure Blood Pressure Findings: Elevated blood pressure Blood Pressure Disposition: further management by hospitalist Discharge Plan Visit Data *Final* Discharge Date/Time: 03/13/19 21:50 Chief Complaint: Chest Pain ED Provider: Nahun Calixto Discharge Problem: SOB (shortness of breath), Hypoxia, Substernal chest pain Patient Disposition: Admitted As Inpatient Discharge Instructions Interventions: ED Discharge Assessment Last Done: 03/13/19 21:50 The scribe's documentation has been prepared under my direction and personally reviewed by me in its entirety. I confirm that the note above accurately reflects all work, treatment, procedures, and medical decision making performed by me.
[2019-03-14] MEDS ORDERED: SENNA 8.6 MG TAB PO SCH (09:00)
[2019-03-14] MEDS ORDERED: hydroCHLOROthiazide 25 MG TAB PO SCH (09:00)
[2019-03-14] MEDS ORDERED: ESCITALOPRAM OXALATE 10 MG TAB PO SCH (09:00)
[2019-03-14] MEDS ORDERED: PANTOprazole 40 MG TAB PO SCH (09:00)
--- NOTE | 2019-03-14 11:02 | Pulmonary Consultation ---
Date of Consultation March 14, 2019 Assessment & Plan (1) GERD (gastroesophageal reflux disease): (2) Dyspnea: --Dyspnea Sudden onset associated with retrosternal epigastric discomfort CTA negative for PE Patient does have history of GERD She likely seemed acid reflux and anxiety cause dyspnea CT chest personally reviewed: Patient had some pulmonary nodules which are actually decreasing in size compared to CTA which was done 01/18/2019. The right lower lobe nodule has been unchanged. There is mild mediastinal adenopathy likely reactive. Calcified mediastinal and hilar lymph nodes. Left lower lobe pulmonary opacity has decreased in size. There is minimal airway trapping appreciated. Patient likely had bronchitis/pneumonia type of symptoms late in January which are resolving now. I do think she has acute pneumonia. Continue with Mucinex and symptomatic cough medications. --Multiple pulmonary nodules Most of them are resolving Likely benign infectious etiology Repeat CT chest in 6 months. Dyspnea type: unspecified Qualified Code(s): R06.00 - Dyspnea, unspecified (3) Depression with anxiety: (4) Pulmonary nodule: History of Present Illness Attending Physician: Chavo Quinonez MD History of Present Illness 88-year-old female past medical history of hypertension, GERD, depression with anxiety presented to the emergency room with complaints of shortness of breath which started while she was playing card game with her friends she complained of chest tightness in the middle of the chest unsure whether she was wheezing at that time. She says that she never had such episodes in the past. Patient denied feeling of any impending doom. Denied any palpitations, no dizziness, no headache, no n ausea, no vomiting, no diaphoresis. Patient had been having cough which was bringing up phlegm that she was taking guaifenesin. Patient did not take any antibiotics as an outpatient. Denies any weight loss, no night sweats, and no dysphagia, no odynophagia. No recent travel history. No known contact history to anybody with TB. Patient seems to be depressed. She was crying at the time of getting H&P and examination telling me that she feels alone as her children are not visiting her anymore especially after the of her 5 years ago. She denies any suicidal ideations. Or any thoughts of hurting herself. Social history: Patient is a non-smoker, no illicit drug use, no alcohol use. 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 She has no pets at home. Patient denies any seasonal allergies. No personal history of asthma. Daughter has asthma. Allergies Allergy/AdvReac Type Severity Reaction Status Date / Time lisinopril Allergy Unknown MYALGIA Verified 03/13/19 18:53 codeine AdvReac Unknown "HIGH" Verified 03/13/19 18:53 donepezil [From Aricept] AdvReac Unknown Unknown Unverified 03/13/19 18:53 morphine AdvReac Unknown Unknown Unverified 03/13/19 18:53 Opioids - Morphine Analogues AdvReac Unknown Unknown Unverified 03/13/19 18:53 Home Medications Home Medications Medication Instructions Recorded Confirmed Type docusate sodium 100 mg capsule 100 mg PO BID PRN #60 cap 09/13/18 03/13/19 Rx glucosamine 750 jc-lckyikuiivp-zgf 1 tab PO TIDM tab 09/13/18 03/13/19 History no1 644 mg-C 30 mg-erick 1 mg tablet zoxbfmbw-ynr-RO 200 mcg-vit K 15 1 tab PO QAM tab 09/13/18 03/13/19 History mcg-lycope 150 kvx-ijijbu-xoga tablet sennosides 8.6 mg tablet 8.6 mg PO BID #60 tab 01/13/19 03/13/19 History calcium carbonate-vitamin D3 1 tab PO QAM 01/18/19 03/13/19 History [Calcium 500 + D] cholecalciferol (vitamin D3) 2,000 unit PO QAM 01/18/19 03/13/19 History [Vitamin D3] escitalopram oxalate [Lexapro] 10 mg PO QAM 01/18/19 03/13/19 History hydrochlorothiazide 12.5 mg PO QAM 01/18/19 03/13/19 History omeprazole 20 mg PO QAM 01/18/19 03/13/19 History pseudoephedrine-guaifenesin 1 tab PO BID PRN 01/18/19 03/13/19 History [Mucinex D] verapamil 240 mg PO HS 01/18/19 03/13/19 History albuterol sulfate 1 puffs INH Q6H PRN 7 Days #8.5 gm 01/19/19 03/13/19 Rx triamcinolone acetonide 0.1 % 1 appln TOP BID #15 gm 02/25/19 03/13/19 Rx topical cream lorazepam 0.5 mg tablet 0.5 mg PO DAILY PRN #30 tab 03/03/19 03/13/19 Rx Patient History Medical History Aortic valve sclerosis (Acute) Atrial premature beats (Acute) Cervicalgia (Acute) Velez angioma (Acute) Constipation (Chronic) Depression with anxiety (Chronic) Diverticulitis of colon (Acute) Hepatic lesion (Acute) Herpes zoster without complication (Acute) Hyperlipidemia (Acute) Hypertension (Chronic) Mitral regurgitation (Acute) Murmur (Acute) Osteopenia (Acute) Paroxysmal SVT (supraventricular tachycardia) (Acute) Peripheral neuropathy (Acute) Seborrheic keratosis (Acute) Short-term memory loss (Chronic) Tubular adenoma of colon (Acute) Surgical History Hx of cholecystectomy Hx of oral surgery Hx of tubal ligation Social History Preferred Language: Citizen Of [place] Communication Ability: Effective Shiftman Required: No Beliefs That Will Affect Care: None marital status: / Current Living Situation: Personal Care Facility Current Living Situation Comment: [facility] current occupational status: retired Other Information That Helps Us Care for You: No Feels Safe at Home: Yes Safety Concerns: Feels Safe At This Time Smoking Status: Never smoker Do You Dip or Chew Tobacco: No ; Second Hand Exposure: No ; Hx Alcohol Use: No Hx Substance Use: No caffeine: Yes Dental Care, Regularly: No Physical Activity Frequency: 1-2 Times per Week Seatbelt Use: always Sunscreen Use: No Review of Systems Review of Systems: All systems reviewed & are unremarkable except as noted in HPI & below Physical Exam Physical Exam: Constitutional: No acute distress HEENT: EOMI, PERRLA Respiratory system: Good air entry bilaterally, mild crackles bilateral lower lobes, no wheeze, no rhonchi CVS: S1-S2 positive, positive 4 out of 6 holosystolic murmur appreciated best at the aorta Abdomen: Soft, nontender, nondistended, positive bowel sounds x4 Extremities: +2 pulses bilaterally radialis/ dorsalis pedis, no cyanosis, no edema Neuro: Awake alert oriented x3 Psych: Flat affect G/U: No [place] Skin: no rashes, warm and dry Lymphatic: no cervical or axillary lymphadenopathy Results & Data ([facility]) Vital Signs (Past 12 Hours) Vital Signs Temp Pulse Resp BP Pulse Ox 03/14/19 07:00 36.6 C 89 20 170/95 H 97 03/13/19 17:20 03/13/19 17:20 PG Care Time/CCT Total # of Minutes Spent Total Time Spent with Patient: Total time spent is greater than 50% in coordination of care (as documented) at patient's floor/unit and/or counseling patient: [place] [address] Initial Inpt Care Lvl 3 Patient Type New Diagnoses GERD (gastroesophageal reflux disease) K21.9 Dyspnea R06.00 Dyspnea type: unspecified Depression with anxiety F41.8 Pulmonary nodule R91.1
--- NOTE | 2019-03-14 13:24 | Hospitalist Progress Note ---
Date of Service March 14, 2019 Assessment & Plan (1) Dyspnea: (2) Depression with anxiety: (3) Hypertension: (4) GERD (gastroesophageal reflux disease): Subjective 88yo WF p/w 1d of central chest pressure and SOB. she has had these sxs in past when she was lonely and depressed but this time it did not resolve like it usually does. no limb swelling or pain. no prior VTE. resumed lorazepam 2wks ago for prn anxiety (usually takes 1/day). she did take on today at 1pm. The pressure has remained constant throughout this time, has not been a sharp pain or radiated down her arms, or moved within her chest; has no difficulty catching her breaths at this point in time. Results & Data ([facility]) Vital Signs (Past 12 Hours) Vital Signs Temp Pulse Resp BP Pulse Ox 03/14/19 07:00 36.6 C 89 20 170/95 H 97 PG Care Time/CCT Total # of Minutes Spent Total Time Spent with Patient: Total time spent is greater than 50% in coordination of care (as documented) at patient's floor/unit and/or counseling patient: Coding Diagnoses Dyspnea R06.00 Dyspnea type: unspecified Depression with anxiety F41.8 Hypertension I10 GERD (gastroesophageal reflux disease) K21.9 (1) Dyspnea Dyspnea type: unspecified Qualified Code(s): R06.00 - Dyspnea, unspecified
--- NOTE | 2019-03-14 17:00 | Electrocardiogram Report ---
Test Reason : Blood Pressure : / mmHG Vent. Rate : 078 BPM Atrial Rate : 078 BPM P-R Int : 180 ms QRS Dur : 100 ms QT Int : 404 ms P-R-T Axes : 069 007 054 degrees QTc Int : 460 ms Normal sinus rhythm Normal ECG When compared with ECG of 18-JAN-2019 08:17, No significant change was found Confirmed by Reymundo Dodge ([id number]) on 03/14/2019 5:00:30 PM Referred By: REFERRED SELF Confirmed By:Reymundo Dodge
--- NOTE | 2019-03-14 20:56 | Discharge Summary ---
Date of Service March 14, 2019 Admission HPI Per Admitting Provider 88yo WF p/w 1d of central chest pressure and SOB. she has had these sxs in past when she was lonely and depressed but this time it did not resolve like it usually does. no limb swelling or pain. no prior VTE. resumed lorazepam 2wks ago for prn anxiety (usually takes 1/day). she did take on today at 1pm. The pressure has remained constant throughout this time, has not been a sharp pain or radiated down her arms, or moved within her chest; has no difficulty catching her breaths at this point in time. Principal Diagnosis chest pain, likely anxiety caused Discharge Exam Abnormal Exam: gr 3 syst murmur Constitutional: No distress. HENT: Mouth/Throat: Oropharynx is clear and moist. Eyes: Conjunctivae are normal. No scleral icterus. Cardiovascular: Normal RRR. no gallop and no friction rub. Pulmonary/Chest: Effort normal and breath sounds normal. No respiratory distress. no wheezing no rales. Abdominal: Soft. Bowel sounds are normal. no distension. There is no tenderness. Musculoskeletal: no deformity. chest wall nontender Neurological: alert. Psychiatric: Mood, affect and judgment normal. Discharge Data Allergies Allergy/AdvReac Type Severity Reaction Status Date / Time lisinopril Allergy Unknown MYALGIA Verified 03/13/19 18:53 codeine AdvReac Unknown "HIGH" Verified 03/13/19 18:53 donepezil [From Aricept] AdvReac Unknown Unknown Unverified 03/13/19 18:53 morphine AdvReac Unknown Unknown Unverified 03/13/19 18:53 Opioids - Morphine Analogues AdvReac Unknown Unknown Unverified 03/13/19 18:53 Consultations 03/13/19 19:35 ED Decision to Admit Stat 03/14/19 00:38 Consult Pulmonology Routine Ordered Studies 03/13/19 21:24 CT angio chest PE protocol Stat Hospital Course (1) Substernal chest pain: ruled out for ACS/angina triggered by anxiety reassured pt and family (D and S at bedside) prior cholecystectomy see treatment below for depression/anxiety (2) GERD (gastroesophageal reflux disease): cont PPI sxs controlled (3) Depression with anxiety: increase lexapro from 10 to 20mg daily (family has seen improvement with lexapro) stop prn lorazepam which she started to take daily alprazolam 0.25mg 1/2 tab tid prn for anxiety and use sparingly. pt reports she gets on average 1 attack a week ... explained this was like alcohol and addictive increase participation with social activities at the [facility] (4) Aortic valve sclerosis: gr 3 syst murmur no further intervention indicated (5) Hypertension: cont BB and diuretic Total Time Total Time Spent Total Time Spent (In Minutes): 30 min Discharge Plan Discharge Items Patient Disposition: Personal Alf Reason For Visit: CHEST PRESSURE Discharge Diagnosis: anxiety and panic disorder Condition on Discharge: Good Activity: Resume your previous activity Activity Comment: increase social activities Non-emergency contact: Primary Care Provider Call non-emergency contact if: you have any medication questions Follow-up/Referrals: Alyse Ruiz MD [Primary Care Provider] - Diet: Regular Addtl Attending Provider Instructions: consider a psychotherapist Pending Studies at Discharge: No Stand-Alone Forms: TierPM, Smoking Cessation Skilled Items Patient informed of condition?: No DNR: No Discharge Level of Care: Other Communicable Disease: No Discharge Prognosis: Stable Lines: None Urinary Catheter: No Medications and DC Order Prescriptions: New alprazolam [Xanax] 0.25 mg tablet 0.125 mg PO TID PRN (Reason: anxiety) Qty: 30 RF: 0 Continued triamcinolone acetonide 0.1 % cream 1 appln TOP BID Qty: 15 RF: 0 Osteo Bi-Flex Triple Strength 750 mg-644 mg- 30 mg-1 mg tablet 1 tab PO TIDM RF: 0 Ocuvite Eye Plus Multi 200-15-150 mcg tablet 1 tab PO QAM RF: 0 docusate sodium 100 mg capsule 100 mg PO BID PRN (Reason: constipation) Qty: 60 RF: 0 sennosides 8.6 mg tablet 8.6 mg PO BID Qty: 60 RF: 0 pseudoephedrine-guaifenesin [Mucinex D] 60-600 mg Tablet Extended Release 12 Hr 1 tab PO BID PRN (Reason: Cold Symptoms) RF: 0 cholecalciferol (vitamin D3) [Vitamin D3] 2,000 unit Tablet 2,000 unit PO QAM RF: 0 hydrochlorothiazide 12.5 mg capsule 12.5 mg PO QAM RF: 0 omeprazole 20 mg capsule,delayed release(DR/EC) 20 mg PO QAM RF: 0 verapamil 240 mg tablet extended release 240 mg PO HS RF: 0 calcium carbonate-vitamin D3 [Calcium 500 + D] 500 mg(1,250mg) -200 unit tablet 1 tab PO QAM RF: 0 albuterol sulfate 90 mcg/actuation HFA aerosol inhaler 1 puffs INH Q6H PRN (Reason: shortness of breath or wheezing) 7 Days Qty: 8.5 RF: 3 Changed escitalopram oxalate [Lexapro] 10 mg tablet 20 mg PO QAM Qty: 60 RF: 0 Discontinued lorazepam 0.5 mg tablet 0.5 mg PO DAILY PRN (Reason: anxiety) Qty: 30 RF: 0 Discharge Orders: Discharge Order (Routine); Ordered 03/14/19 Ordered By: Chavo Quinonez Admission Data Admit Date/Time: 03/13/19 21:30 Attending Provider: Chavo Quinonez Admit Provider: Alber Feng Primary Care Provider: Alyse Ruiz Other Providers: Ace Miles ; Radha Torres Other Interventions: Discharge Summary Assessment (RN) Last Done: 03/14/19 14:33 DC Date/Time DO NOT enter until pt leaves facility: 03/14/19 16:02 Coding Level of Care Code 13870 OBS Care - Discharge Diagnoses Substernal chest pain R07.2 GERD (gastroesophageal reflux disease) K21.9 Depression with anxiety F41.8 Aortic valve sclerosis I35.8 Hypertension I10
[2019-03-14] MEDS ORDERED: guaiFENesin 600 MG TABCR PO SCH (21:00)
[2019-03-14] MEDS ORDERED: VERAPAMIL HCL 240 MG TABCR PO SCH (21:00)
== END 2019-03-14 16:02 | disposition home or self-care (01) | DRG 313 ==
LOC: ED 16:42 → SUATTDRO 21:30 → 4W 21:30 → INTOOBSV 21:30 → 4W 21:50

== ENCOUNTER 2019-06-19 10:21 | Inpatient (IN) ==
[2019-06-19] MEDS ORDERED: DEXAMETHASONE **PF** INJ 10 MG/ML VIAL IV ONE (10:42)
[2019-06-19] MEDS ORDERED: ALBUTEROL HFA 8 GM INHALER INH ONE (10:42)
[2019-06-19 11:05] LABS: Basophils # (auto) 0.02 K/uL (0-0.2); Basophils % (auto) 0.3 %; Eosinophils # (auto) 0.31 K/uL (0-0.5); Eosinophils % (auto) 3.9 %; Hematocrit (blood only) 44.3 % (37-47); Hemoglobin 14.7 g/dL (12.0-16.0); Immature Granulocytes # (auto) 0.03 K/uL (0.00-0.02); Immature Granulocytes % (auto) 0.4 %; Lymphocytes # (auto) 1.82 K/uL (1.2-3.4); Lymphocytes % (auto) 22.8 %; Mean Corpuscular Hemoglobin 30.7 pg (25-34); Mean Corpuscular Hgb Conc 33.2 g/dL (32-36); Mean Corpuscular Volume 92.5 fL (80-100); Mean Platelet Volume 10.3 fL (7.4-10.4); Monocytes # (auto) 0.52 K/uL (0.11-0.59); Monocytes % (auto) 6.5 %; Neutrophils # (auto) 5.27 K/uL (1.4-6.5); Neutrophils % (auto) 66.1 %; Platelet Count 164 K/uL (130-400); RDW Coefficient of Variation 13.2 % (11.5-14.5); RDW Standard Deviation 44.8 fL (36.4-46.3); Red Blood Count 4.79 M/uL (4.2-5.4); White Blood Count 7.97 K/uL (4.8-10.8)
[2019-06-19 11:16] LABS: Partial Thromboplastin Ratio 0.9; Partial Thromboplastin Time 25.1 Seconds (21.0-31.0)
[2019-06-19 11:22] LABS: Alanine Aminotransferase 23 U/L (12-78); Albumin Level 3.5 gm/dl (3.4-5.0); Aspartate Aminotransferase 17 U/L (15-37); BUN Creatinine Ratio 11.8 (10-20); Blood Urea Nitrogen 10 mg/dl (7-18); Calcium 8.8 mg/dl (8.5-10.1); Carbon Dioxide 33 mmol/L (21-32); Chloride 103 mmol/L (98-107); Est GFR (African American) 69.4; Est GFR (Non-African American) 59.9; Glucose 129 mg/dl (70-99); Lipase 45 U/L (73-393); Magnesium 1.9 mg/dl (1.8-2.4); Potassium 3.8 mmol/L (3.5-5.1); Sodium 140 mmol/L (136-145)
--- NOTE | 2019-06-19 11:31 | XRay Report ---
XR chest 1V portable CLINICAL HISTORY: 89 years-old Female presenting with Chest Pain. TECHNIQUE: Portable upright AP view of the chest was obtained. COMPARISON: 03/13/2019. FINDINGS: Atherosclerosis of the aortic arch. Cardiac silhouette borderline enlarged. No focal opacity. No larg e effusion or pneumothorax. Degenerative changes of the thoracic spine. Degenerative changes of the g lenohumeral joints, left greater than right. Upper abdomen normal. IMPRESSION: 1. No acute cardiopulmonary disease. ACT 112: Negative or not required by law. Electronically signed by: Jf Teran M.D. 06/19/2019 11:29 AM
[2019-06-19 11:32] LABS: Albumin Globulin Ratio 0.8 (0.9-2); Alkaline Phosphatase 71 U/L (45-117); Bilirubin,Total 0.5 mg/dl (0.2-1); Globulin 4.4 gm/dl (2.5-4.0); NT Pro B Type Natriuretic Pept 134 pg/ml (0-1800); Phosphorus 2.6 mg/dl (2.5-4.9); Total Protein 7.9 gm/dl (6.4-8.2); Troponin I < 0.015 ng/ml (0-0.045)
[2019-06-19 11:55] LABS: Influenza A virus by PCR Neg for Influ A (Neg); Influenza B virus by PCR Neg for Influ B (Neg)
[2019-06-19] MEDS ORDERED: guaiFENesin 600 MG TABCR PO STA (13:34)
[2019-06-19] MEDS ORDERED: DOXYCYCLINE HYCLATE 100 MG in DEXTROSE 5% 100 ML IV STA (13:34)
[2019-06-19] MEDS ORDERED: SODIUM CHLORIDE 0.9% 500 ML IV ONE (13:34)
--- NOTE | 2019-06-19 15:04 | Emergency Department Note ---
Impression & Plan Hypoxia, Dyspnea, Bronchitis ED Provider Note NAME: CHEYENNE MARINELLI AGE: 89 SEX: F ARRIVES VIA: Ambulance INFORMANT: Patient, ED PROVIDER(S): Ki Medellin MD CHIEF COMPLAINT: Shorntess of breath. PLAN: Disposition: Admit MEDICAL DECISION MAKING: The patient is a pleasant 89-year-old woman with a past medical history of SVT, hypertension, hyperlipidemia numbers department from her personal assisted at [facility] for feverishness, cough and shortness of breath with hypoxia with oxygen saturation in the mid 80s with chest x-ray performed yesterday and COVID-19 swab sent and pending. On arrival the patient is mildly dyspneic appearing but no acute distress, afebrile, with O2 saturation 88% on room air with mild increased work of breathing and vital signs otherwise stable. On exam the patient has scant intermittent wheezes but is otherwise clear. EKG is unremarkable without overt acute ischemia. Chest x-ray negative for acute process. WBC, H/H and platelets within normal limits. Chemistry without acidosis. Electrolytes LFTs unremarkable. Troponin negative/undetectable. BNP within normal limits. COVID-19 PCR was obtained newly in the emergency department and was negative. Patient did feel some improvement after IV fluid hydration, steroids, albuterol MDI. However, upon ambulation she would still be come dsynpeic off of oxygen with O2 saturation as low as 85% on RA. Thus, given the patient's hypoxia and dyspnea that is particularly worse with exertion, reasonable to admit for further management given she only lives in a personal assisted without [facility] capability. Patient is agreeable. Case was [place] [facility] [place], who will evaluate the patient for admission. Triage Nursing notes reviewed and agree them. Additional history obtained from [facility] staff Prior medical records reviewed Vital Signs: reviewed and remarkable for hypoxia. Differential diagnosis: Reactive airway disease, pneumonia, pneumothorax, COPD, CHF, infections, cardiac ischemia, pulmonary embolism, musculoskeletal, gastrointestinal, as well as other pathologies. ER treatment provided: See below. Diagnostics interpreted by me: ECG: Normal sinus rhythm, 78 bpm, normal axis, no ectopy, no overt ST elevation or depression, QTC 467, QRS 102. Cardiac Monitoring: Normal sinus rhythm, 78 bpm, no ectopy. Laboratory studies: See below Imaging studies: XR chest 1V portable CLINICAL HISTORY: 89 years-old Female presenting with Chest Pain. TECHNIQUE: Portable upright AP view of the chest was obtained. COMPARISON: 03/13/2019. FINDINGS: Atherosclerosis of the aortic arch. Cardiac silhouette borderline enlarged. No focal opacity. No large effusion or pneumothorax. Degenerative changes of the thoracic spine. Degenerative changes of the glenohumeral joints, left greater than right. Upper abdomen normal. IMPRESSION: 1. No acute cardiopulmonary disease. ACT 112: Negative or not required by law. Consultation(s): Case was discussed with Dr. Macdonald, [facility] [place], who will evaluate the patient for admission. HPI: The patient is a pleasant 89-year-old woman with a past medical history of SVT, hypertension, hyperlipidemia numbers department from her personal assisted at [facility] for feverishness, cough and shortness of breath with hypoxia with oxygen saturation in the mid 80s with chest x-ray performed yesterday and COVID-19 swab sent and pending. Patient denies any nausea, vomiting, diarrhea, urinary symptoms. ROS: See above HPI for pertinent positives & negatives. A total of 10 systems reviewed and were otherwise negative. PAST MEDICAL HISTORY:See Below PAST SURGICAL HISTORY:See Below FAMILY HISTORY:See Below SOCIAL HISTORY:See Below HOME MEDICATIONS:See Below ALLERGIES:See Below VITALS:See Below PHYSICAL EXAMINATION: GENERAL: Awake, alert, fatigued, mildly dyspneic-appearing, in no distress HENT: Normocephalic, atraumatic. Oropharynx with dry mucous membranes and otherwise unremarkable. EYES: Normal conjunctiva. Sclera non-icteric. NECK: Supple. No nuchal rigidity. FROM. No JVD. RESPIRATORY: Scant intermittent wheezes and otherwise clear. CARDIAC: Regular rate, normal rhythm. Extremities warm and well perfused. Pulses equal. ABDOMEN: Soft, non-distended. No tenderness to palpation. No rebound or guarding. No masses. RECTAL: Deferred. MUSCULOSKELETAL: Chest examination reveals no tenderness. The back is symmetrical on inspection without obvious abnormality. There is no CVA tenderness to palpation. No joint edema. LOWER EXTREMITIES: Calves are equal size bilaterally and non-tender. No edema. No discoloration. NEURO: Normal sensorium. No sensory or motor deficits noted. SKIN: No rash or jaundice noted. Ki Medellin MD Past Med/Surg History Medical History Aortic valve sclerosis (Acute) Atrial premature beats (Acute) Cervicalgia (Acute) Velez angioma (Acute) Constipation (Chronic) Depression with anxiety (Chronic) Diverticulitis of colon (Acute) Hepatic lesion (Acute) Herpes zoster without complication (Acute) Hyperlipidemia (Acute) Hypertension (Chronic) Mitral regurgitation (Acute) Murmur (Acute) Osteopenia (Acute) Paroxysmal SVT (supraventricular tachycardia) (Acute) Peripheral neuropathy (Acute) Seborrheic keratosis (Acute) Short-term memory loss (Chronic) Tubular adenoma of colon (Acute) Surgical History Hx of cholecystectomy Hx of oral surgery Hx of tubal ligation Family History Brother Colorectal cancer Denies family history of Ovarian cancer Prostate cancer Myocardial infarction Breast cancer Social History Preferred Language: Slovenian Communication Ability: Effective Environmental Health Aide Required: No Beliefs That Will Affect Care: None marital status: / Current Living Situation: Personal Care Facility Current Living Situation Comment: [facility] at [facility] current occupational status: retired Feels Safe at Home: Yes Smoking Status: Never smoker Second Hand Exposure: No ; Hx Alcohol Use: Yes Alcohol type: beer and wine Hx Substance Use: No caffeine: Yes Dental Care, Regularly: No Physical Activity Frequency: 1-2 Times per Week Seatbelt Use: always Sunscreen Use: No Allergies Allergies Allergy/AdvReac Type Severity Reaction Status Date / Time lisinopril Allergy Unknown MYALGIA Verified 06/19/19 11:15 codeine AdvReac Unknown "HIGH" Verified 06/19/19 11:15 donepezil [From Aricept] AdvReac Unknown Unknown Unverified 06/19/19 11:15 morphine AdvReac Unknown Unknown Unverified 06/19/19 11:15 Opioids - Morphine Analogues AdvReac Unknown Unknown Unverified 06/19/19 11:15 Home Meds Home Medications Medication Instructions Recorded Confirmed glucosamine 750 bm-bkphavsoozf-ned 1 tab PO TIDM tab 09/13/18 06/19/19 no1 644 mg-C 30 mg-erick 1 mg tablet mdxgatrg-suf-IC 200 mcg-vit K 15 1 tab PO DAILY@0830 tab 09/13/18 06/19/19 mcg-lycope 150 dto-rpiocy-votw tablet sennosides 8.6 mg tablet 8.6 mg PO BID PRN #60 tab 01/13/19 06/19/19 calcium carbonate-vitamin D3 1 tab PO DAILY@82901/18/19 06/19/19 [Calcium 500 + D] cholecalciferol (vitamin D3) 2,000 unit PO DAILY@82901/18/19 06/19/19 [Vitamin D3] hydrochlorothiazide 12.5 mg PO DAILY@82901/18/19 06/19/19 omeprazole 20 mg PO DAILY@82901/18/19 06/19/19 pseudoephedrine-guaifenesin 1 tab PO BID PRN 01/18/19 06/19/19 [Mucinex D] verapamil 240 mg PO DAILY@209901/18/19 06/19/19 escitalopram oxalate 20 mg PO DAILY@82906/19/19 06/19/19 Previous Rx's Medication Instructions Recorded docusate sodium 100 mg capsule 100 mg PO BID PRN #60 cap 09/13/18 alprazolam [Xanax] 0.125 mg PO TID PRN #30 tab 03/14/19 Results & Data (ED) Vital Signs Vital Signs - 24 hr 06/19/19 10:26 06/19/19 10:28 06/19/19 11:14 Temperature 37.1 C Temperature Source Oral Pulse Rate 82 Pulse Rate from SpO2 Sensor 80 Respiratory Rate 24 Blood Pressure 184/80 H 184/80 H Blood Pressure Mean 121 114 Pulse Oximetry 92 92 95 Oxygen Delivery Method Room Air Nasal Cannula Oxygen Flow Rate 2 Sepsis Recent Fever Within 48 Hours No Sepsis New/Unexplained Change in Mental Status No Sepsis Action Taken by Nursing No Action Required Oxygen Flow Rate - Titration 2 Pulse Oximetry Post Tiitration 95 06/19/19 11:19 06/19/19 11:30 06/19/19 12:00 Temperature Temperature Source Pulse Rate 72 72 70 Pulse Rate from SpO2 Sensor 73 72 70 Respiratory Rate 24 23 21 Blood Pressure 175/90 H 178/99 H 160/86 H Blood Pressure Mean 110 119 119 Pulse Oximetry 94 95 96 Oxygen Delivery Method Nasal Cannula Oxygen Flow Rate 2 Sepsis Recent Fever Within 48 Hours Sepsis New/Unexplained Change in Mental Status Sepsis Action Taken by Nursing Oxygen Flow Rate - Titration Pulse Oximetry Post Tiitration 06/19/19 12:30 06/19/19 13:00 06/19/19 13:30 Temperature Temperature Source Pulse Rate 70 74 76 Pulse Rate from SpO2 Sensor 70 74 75 Respiratory Rate 27 H 22 21 Blood Pressure 178/90 H 171/94 H 164/86 H Blood Pressure Mean 115 126 123 Pulse Oximetry 95 95 94 Oxygen Delivery Method Nasal Cannula Oxygen Flow Rate 2 Sepsis Recent Fever Within 48 Hours Sepsis New/Unexplained Change in Mental Status Sepsis Action Taken by Nursing Oxygen Flow Rate - Titration Pulse Oximetry Post Tiitration 06/19/19 14:00 Temperature Temperature Source Pulse Rate 80 Pulse Rate from SpO2 Sensor 80 Respiratory Rate 23 Blood Pressure 181/87 H Blood Pressure Mean 118 Pulse Oximetry 95 Oxygen Delivery Method Oxygen Flow Rate Sepsis Recent Fever Within 48 Hours Sepsis New/Unexplained Change in Mental Status Sepsis Action Taken by Nursing Oxygen Flow Rate - Titration Pulse Oximetry Post Tiitration Laboratory Data Attestation: I reviewed the patient's lab results. Result diagrams: 06/19/19 10:55 06/19/19 10:55 Lab Results 06/19/19 06/19/19 06/19/19 Range/Units 10:55 10:55 10:55 WBC 7.97 (4.8-10.8) K/uL RBC 4.79 (4.2-5.4) M/uL Hgb 14.7 (12.0-16.0) g/dL Hct 44.3 (37-47) % MCV 92.5 (80-100) fL MCH 30.7 (25-34) pg MCHC 33.2 (32-36) g/dL RDW Std Deviation 44.8 (36.4-46.3) fL RDW Coeff of Ivory 13.2 (11.5-14.5) % Plt Count 164 (130-400) K/uL MPV 10.3 (7.4-10.4) fL Immature Gran % (Auto) 0.4 % Neut % (Auto) 66.1 % Lymph % (Auto) 22.8 % [place] % (Auto) 6.5 % Eos % (Auto) 3.9 % Baso % (Auto) 0.3 % Immature Gran # (Auto) 0.03 H (0.00-0.02) K/uL Neut # (Auto) 5.27 (1.4-6.5) K/uL Lymph # (Auto) 1.82 (1.2-3.4) K/uL [place] # (Auto) 0.52 (0.11-0.59) K/uL Eos # (Auto) 0.31 (0-0.5) K/uL Baso # (Auto) 0.02 (0-0.2) K/uL PT 11.0 (9.0-12.0) Seconds INR 1.0 (0.9-1.1) APTT 25.1 (21.0-31.0) Seconds PTT Ratio 0.9 Sodium 140 (136-145) mmol/L Potassium 3.8 (3.5-5.1) mmol/L Chloride 103 (98-107) mmol/L Carbon Dioxide 33 H (21-32) mmol/L Anion Gap 4.0 (3-11) BUN 10 (7-18) mg/dl Creatinine 0.87 (0.6-1.2) mg/dl Est Cr Clr Drug Dosing Not Reportable Est GFR ( Amer) 69.4 Est GFR (Non-Af Amer) 59.9 BUN/Creatinine Ratio 11.8 (10-20) Glucose 129 H (70-99) mg/dl Calcium 8.8 (8.5-10.1) mg/dl Phosphorus 2.6 (2.5-4.9) mg/dl Magnesium 1.9 (1.8-2.4) mg/dl Total Bilirubin 0.5 (0.2-1) mg/dl AST 17 (15-37) U/L ALT 23 (12-78) U/L Alkaline Phosphatase 71 (45-117) U/L Troponin I < 0.015 (0-0.045) ng/ml NT-Pro-B Natriuret Pep 134 (0-1800) pg/ml Total Protein 7.9 (6.4-8.2) gm/dl Albumin 3.5 (3.4-5.0) gm/dl Globulin 4.4 H (2.5-4.0) gm/dl Albumin/Globulin Ratio 0.8 L (0.9-2) Lipase 45 L (73-393) U/L COVID-19 PCR (Negative) Influenza Type A (PCR) (Neg) Influenza Type B (PCR) (Neg) 06/19/19 06/19/19 Range/Units 11:06 11:06 WBC (4.8-10.8) K/uL RBC (4.2-5.4) M/uL Hgb (12.0-16.0) g/dL Hct (37-47) % MCV (80-100) fL MCH (25-34) pg MCHC (32-36) g/dL RDW Std Deviation (36.4-46.3) fL RDW Coeff of Ivory (11.5-14.5) % Plt Count (130-400) K/uL MPV (7.4-10.4) fL Immature Gran % (Auto) % Neut % (Auto) % Lymph % (Auto) % [place] % (Auto) % Eos % (Auto) % Baso % (Auto) % Immature Gran # (Auto) (0.00-0.02) K/uL Neut # (Auto) (1.4-6.5) K/uL Lymph # (Auto) (1.2-3.4) K/uL [place] # (Auto) (0.11-0.59) K/uL Eos # (Auto) (0-0.5) K/uL Baso # (Auto) (0-0.2) K/uL PT (9.0-12.0) Seconds INR (0.9-1.1) APTT (21.0-31.0) Seconds PTT Ratio Sodium (136-145) mmol/L Potassium (3.5-5.1) mmol/L Chloride (98-107) mmol/L Carbon Dioxide (21-32) mmol/L Anion Gap (3-11) BUN (7-18) mg/dl Creatinine (0.6-1.2) mg/dl Est Cr Clr Drug Dosing Est GFR ( Amer) Est GFR (Non-Af Amer) BUN/Creatinine Ratio (10-20) Glucose (70-99) mg/dl Calcium (8.5-10.1) mg/dl Phosphorus (2.5-4.9) mg/dl Magnesium (1.8-2.4) mg/dl Total Bilirubin (0.2-1) mg/dl AST (15-37) U/L ALT (12-78) U/L Alkaline Phosphatase (45-117) U/L Troponin I (0-0.045) ng/ml NT-Pro-B Natriuret Pep (0-1800) pg/ml Total Protein (6.4-8.2) gm/dl Albumin (3.4-5.0) gm/dl Globulin (2.5-4.0) gm/dl Albumin/Globulin Ratio (0.9-2) Lipase (73-393) U/L COVID-19 PCR NEGATIVE (Negative) Influenza Type A (PCR) Neg for Influ A (Neg) Influenza Type B (PCR) Neg for Influ B (Neg) Administered Medications Hydralazine HCl (Hydralazine Hcl) 5 mg IV Q4H PRN PRN Reason: SBP > 180 or DBP > 110 Stop: 07/19/19 18:13 Last Admin: 06/19/19 20:29 Dose: 5 mg Documented by: [id number] Verapamil HCl (Calan Sr) 240 mg PO DAILY@2100 KIERRA Stop: 07/19/19 20:59 Last Admin: 06/19/19 20:29 Dose: 240 mg Documented by: [id number] Discontinued Medications Albuterol (Ventolin Hfa) 2 puffs INH NOW ONE Stop: 06/19/19 10:43 Last Admin: 06/19/19 10:59 Dose: 2 puffs Documented by: [id number] Dexamethasone Sodium Phosphate (Decadron Pf) 10 mg IV NOW ONE Stop: 06/19/19 10:43 Last Admin: 06/19/19 10:59 Dose: 10 mg Documented by: [id number] Guaifenesin (Mucinex) 600 mg PO NOW STA Stop: 06/19/19 13:35 Last Admin: 06/19/19 14:08 Dose: 600 mg Documented by: [id number] Hydroxyzine HCl (Vistaril) 50 mg PO NOW STA Stop: 06/19/19 12:29 Last Admin: 06/19/19 12:40 Dose: Not Given Documented by: [id number] Sodium Chloride (Nss) 500 mls @ 999 mls/hr IV .Q31M ONE Stop: 06/19/19 14:04 Last Infusion: 06/19/19 14:47 Dose: 0 mls/hr Documented by: [id number] Admin: 06/19/19 14:15 Dose: 999 mls/hr Documented by: [id number] Doxycycline Hyclate 100 mg/ (Dextrose) 110 mls @ 50 mls/hr IV NOW STA Stop: 06/19/19 15:45 Last Infusion: 06/19/19 16:44 Dose: 0 mls/hr Documented by: [id number] Admin: 06/19/19 14:06 Dose: 50 mls/hr Documented by: [id number] Blood Pressure Blood Pressure Findings: Elevated blood pressure Blood Pressure Disposition: further management by hospitalist Discharge Plan Visit Data *Final* Discharge Date/Time: 06/19/19 16:02 Chief Complaint: Shortness of Breath/Dyspnea Stated Complaint: SOB ED Provider: Ki Medellin Discharge Problem: Hypoxia, Dyspnea, Bronchitis Patient Disposition: Admitted As Inpatient Discharge Instructions Interventions: ED Discharge Assessment Last Done: 06/19/19 16:02 Discharge Problem: Dyspnea Qualifiers: Dyspnea type: unspecified Qualified Code(s): R06.00 - Dyspnea, unspecified
--- NOTE | 2019-06-19 15:14 | History & Physical Report ---
Date of Service June 19, 2019 Assessment & Plan (1) Hypoxemia: CXR is clear. Covid-10 testing negative. Patient actually denies any/all respiratory symptoms such as cough, shortness of breath, or dyspnea on exertion. Looking back at vital signs, it appears this may be chronic issues as she has prior O2 sats in the low to mid 80% range back in 01/2019. - Will get [facility] respiratory panel, BNP, and procalcitonin to further r/o acute causes of hypoxemia. - If no acute cause is found, it is possible that patient has age-related changes which are causing mild hypoxemia. Given her O2 sat > 90% while at rest and total lack of symptoms, I am unsure if she would really benefit from supplemental O2 at home. She seems uninterested tonight, but can defer to discussion tomorrow. - Hold abx as she has no indication for them at present. - Hold steroids given no symptoms of shortness of breath and no wheezing on exam. - DuoNebs PRN (2) Dark urine: Patient notes her urine is "darker yellow" than usual. No RODRIGO noted on labs. No dysuria, no incomplete voiding sensation, no leukocytosis. Did have reported fever yesterday. - No clear indication of UTI at present. - If symptoms change or fever occurs, could consider UA, but at this point, I would be more worried about catching asymptomatic bacteruria, so will defer testing. (3) Hypertension: BP as high as 180/90 in the ED, in the setting of stress/anxiety of the hospital. No symptoms of hypertensive urgency. - Continue HCTZ (dose increased to 25 mg from 12.5 mg home dose) - Monitor (4) Depression with anxiety: Prior episodes of anxiety (not called panic attacks that I see in the record) treated with a sparse, low-dose benzo, along with SSRI. - Continue SSRI - Continue Xanax PRN (5) DVT prophylaxis: SCDs - Low DVT risk per admission calculator History of Present Illness Primary Care Provider: Alyse Ruiz MD 89 yo F w/ hx of bronchitis and anxiety who presents with hypoxemia. Overall, she has been in her normal state of health over the last few days. Yesterday, she was reported to have a fever as high as 102, but was otherwise asymptomatic. Given coronavirus pandemic, she was tested for Covid. This morning, with her vital signs, reportedly her O2 saturation was in the 65-70% range. The RN at [facility] reports it was that low for a few minutes as she went to call , then rebounded to the mid 80% range without treatment. Per both the patient and the RN Melyssa, Ms. Eldridge was asymptomatic at that time and had no cough, shortness of breath, chest pain, dizziness, or other symptoms. At the time of interview, the patient reports no respiratory symptoms at all, again denying any cough or shortness of breath in the last few days. She reports she did not feel feverish when her temperature was taken yesterday. She does note some darker yellow urine, but denies any dysuria, polyuria, or other concerning symptoms. Allergies Allergy/AdvReac Type Severity Reaction Status Date / Time lisinopril Allergy Unknown MYALGIA Verified 06/19/19 11:15 codeine AdvReac Unknown "HIGH" Verified 06/19/19 11:15 donepezil [From Aricept] AdvReac Unknown Unknown Unverified 06/19/19 11:15 morphine AdvReac Unknown Unknown Unverified 06/19/19 11:15 Opioids - Morphine Analogues AdvReac Unknown Unknown Unverified 06/19/19 11:15 Home Medications Home Medications Medication Instructions Recorded Confirmed Type docusate sodium 100 mg capsule 100 mg PO BID PRN #60 cap 09/13/18 06/19/19 Rx glucosamine 750 ix-[id number] 1 tab PO TIDM tab 09/13/18 06/19/19 History no1 644 mg-C 30 mg-erick 1 mg tablet ncadvrpf-rxu-EX 200 mcg-vit K 15 1 tab PO DAILY@30 tab 09/13/18 06/19/19 History mcg-lycope 150 dbv-yqitbr-anph tablet sennosides 8.6 mg tablet 8.6 mg PO BID PRN #60 tab 01/13/19 06/19/19 History calcium carbonate-vitamin D3 1 tab PO DAILY@30 01/18/19 06/19/19 History [Calcium 500 + D] cholecalciferol (vitamin D3) 2,000 unit PO DAILY@30 01/18/19 06/19/19 History [Vitamin D3] hydrochlorothiazide 12.5 mg PO DAILY@0830 01/18/19 06/19/19 History omeprazole 20 mg PO DAILY@82901/18/19 06/19/19 History pseudoephedrine-guaifenesin 1 tab PO BID PRN 01/18/19 06/19/19 History [Mucinex D] verapamil 240 mg PO DAILY@2100 01/18/19 06/19/19 History alprazolam [Xanax] 0.125 mg PO TID PRN #30 tab 03/14/19 06/19/19 Rx escitalopram oxalate 20 mg PO DAILY@30 06/19/19 06/19/19 History Past Med/Surg History Medical History Aortic valve sclerosis (Acute) Atrial premature beats (Acute) Cervicalgia (Acute) Velez angioma (Acute) Constipation (Chronic) Depression with anxiety (Chronic) Diverticulitis of colon (Acute) Hepatic lesion (Acute) Herpes zoster without complication (Acute) Hyperlipidemia (Acute) Hypertension (Chronic) Mitral regurgitation (Acute) Murmur (Acute) Osteopenia (Acute) Paroxysmal SVT (supraventricular tachycardia) (Acute) Peripheral neuropathy (Acute) Seborrheic keratosis (Acute) Short-term memory loss (Chronic) Tubular adenoma of colon (Acute) Surgical History Hx of cholecystectomy Hx of oral surgery Hx of tubal ligation Family History Brother Colorectal cancer Denies family history of Ovarian cancer Prostate cancer Myocardial infarction Breast cancer Social History Preferred Language: Polish Communication Ability: Effective 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 Beliefs That Will Affect Care: None marital status: / Current Living Situation: Personal Care Facility Current Living Situation Comment: [place] [facility] current occupational status: retired Feels Safe at Home: Yes Smoking Status: Never smoker Second Hand Exposure: No ; Hx Alcohol Use: No Hx Substance Use: No caffeine: Yes Dental Care, Regularly: No Physical Activity Frequency: 1-2 Times per Week Seatbelt Use: always Sunscreen Use: No Review of Systems Review of Systems: All systems reviewed & are unremarkable except as noted in HPI & below Physical Exam Constitutional: WD/WN, vitals as above + frail appearing; no acute distress Eyes: EOM intact bilaterally; no conjunctival abnormality ENMT: external ear and nose normal, oropharynx normal Neck: trachea midline, no thyromegaly normal visual inspection Respiratory: normal respiratory effort, lungs clear to auscultation no respiratory distress Cardiovascular: RRR, no murmur, no edema Gastrointestinal (Abdomen): Inspection/Auscultation: abdomen normal to inspection; abdomen not distended Musculoskeletal: no cyanosis or clubbing, extremities motor strength 5/5 Skin: no rashes, warm and dry Neurologic: moves all extremities and awake Psychiatric: Orientation: alert, oriented to person and cooperative Results & Data Results & [facility] ([facility]) Vital Signs (Past 12 Hours) Vital Signs Temp Pulse Resp BP Pulse Ox Pulse Ox 06/19/19 14:28 85 L 06/19/19 14:26 85 L 06/19/19 14:00 80 23 181/87 H 95 06/19/19 13:30 76 21 164/86 H 94 06/19/19 13:00 74 22 171/94 H 95 06/19/19 12:30 70 27 H 178/90 H 95 06/19/19 12:00 70 21 160/86 H 96 06/19/19 11:30 72 23 178/99 H 95 06/19/19 11:19 72 24 175/90 H 94 06/19/19 11:14 95 06/19/19 10:28 37.1 C 82 24 184/80 H 92 06/19/19 10:26 184/80 H 92 Code Status & VTE Plan VTE Prophylaxis Plan VTE Prophylaxis will be ordered: Yes PG Care Time/CCT Total # of Minutes Spent Total Time Spent with Patient: Total time spent is greater than 50% in coordination of care (as documented) at patient's floor/unit and/or counseling patient: Coding Level of Care Code 82109 Initial Inpt Care Lvl 3 Diagnoses Hypoxemia R09.02 Dark urine R82.998 Hypertension I10 Depression with anxiety F41.8 DVT prophylaxis Z29.9
--- NOTE | 2019-06-19 16:14 | Electrocardiogram Report ---
Test Reason : Blood Pressure : / mmHG Vent. Rate : 078 BPM Atrial Rate : 078 BPM P-R Int : 192 ms QRS Dur : 102 ms QT Int : 410 ms P-R-T Axes : 056 009 058 degrees QTc Int : 467 ms Poor data quality, interpretation may be adversely affected Normal sinus rhythm Normal ECG When compared with ECG of 13-MAR-2019 16:52, No significant change was found Confirmed by Tim Munoz ([id number]) on 06/19/2019 4:13:48 PM Referred By: Lillie Woods Confirmed By:Tim Munoz
[2019-06-19] MEDS ORDERED: ONDANSETRON INJ 2 MG/ML 2 ML VIAL IV PRN (16:19)
[2019-06-19] MEDS ORDERED: ALBUT/IPRATROP 3MG/0.5MG NEB 3 ML VIAL NEB PRN (16:19)
[2019-06-19] MEDS ORDERED: ALPRAZolam 0.25 MG TABLET PO PRN (16:19)
[2019-06-19] MEDS ORDERED: ACETAMINOPHEN 325 MG TAB PO PRN (16:19)
[2019-06-19] MEDS ORDERED: HydrALAZINE HCL 20 MG/ML VIAL IV PRN (18:14)
[2019-06-19] MEDS: VERAPAMIL HCL 240 MG TABCR PO SCH (20:29)
[2019-06-20 05:49] LABS: Hemoglobin 13.8 g/dL (12.0-16.0); Mean Corpuscular Hemoglobin 30.9 pg (25-34); Mean Corpuscular Hgb Conc 33.7 g/dL (32-36); Mean Corpuscular Volume 91.9 fL (80-100); Mean Platelet Volume 10.4 fL (7.4-10.4); Platelet Count 181 K/uL (130-400); RDW Coefficient of Variation 12.9 % (11.5-14.5); RDW Standard Deviation 43.2 fL (36.4-46.3); Red Blood Count 4.46 M/uL (4.2-5.4); White Blood Count 9.63 K/uL (4.8-10.8)
[2019-06-20 06:13] LABS: BUN Creatinine Ratio 20.6 (10-20); Calcium 9.1 mg/dl (8.5-10.1); Creatinine Clr Calc Pharmacy 47.8 ml/min; Est GFR (African American) 73.5; Est GFR (Non-African American) 63.4; Potassium 3.5 mmol/L (3.5-5.1)
[2019-06-20] MEDS: PANTOprazole 40 MG TAB PO SCH (08:21)
[2019-06-20] MEDS: hydroCHLOROthiazide 25 MG TAB PO SCH (08:21)
[2019-06-20] MEDS: ESCITALOPRAM OXALATE 20 MG TAB PO SCH (08:21)
--- NOTE | 2019-06-20 11:27 | Hospitalist Progress Note ---
Date of Service June 20, 2019 Assessment & Plan (1) Hypoxemia: * Admitted with reported O2 sat dropped to 65-70% on RA at [facility]. Mid 80s on admission. Of note, patient mentions that she believes at one point she was supposed to be on oxygen as needed, but never received this. * CXR without acute process * COVID-19 negative * [facility] panel pending * BNP 134, unlikely related to congestive changes. Procalcitonin 0.06. No abx at this time. * Patient afebrile, currently 36.7C, 91% on RA * Duonebs prn * Possible that age-related changes causing mild hypoxemia --> unsure if patient would benefit from home O2 given 91% currently on RA, however will obtain 2- step prior to discharge --> Of note, patient did have 2-step back in January 2019 and did not qualify at that time, per CM notes (2) Dark urine: * Patient notes her urine is "darker yellow" than usual. WIthout evidence of RODRIGO on admission. Cr currently 0.83. --> ring sorter today * No dysuria, no incomplete voiding sensation, no leukocytosis. * Did have reported fever 5/7 Tmax 102F * If symptomatic, obtain UA * Continue to monitor (3) Hypertension: * Chronic. Stable. Currently 145/83 * BP as high as 180/90 in the ED in the setting of stress/anxiety of the hospital on admission. No symptoms of hypertensive urgency. * Continue increased HCTZ 25mg daily (increased from 12.5mg home dose) -- continue on higher dose at discharge * Continue home verapamil 240mg daily * Continue to monitor (4) Depression with anxiety: * Chronic. Stable * Prior episodes of anxiety (not called panic attacks that I see in the record) treated with a sparse, low-dose benzo, along with SSRI. * Continue home lexapro 20mg daily, xanax 0.125mg prn (5) GERD (gastroesophageal reflux disease): * Chronic. Stable. Patient takes omeprazole at home --> continue protonix 40mg daily while inpatient * Continue to monitor (6) DVT prophylaxis: * Low DVT risk per admission calculator * SCDs Dispo: patient from [facility] ([facility]) -- likely to remain hospitalized overnight, await [facility]. 2 step prior to discharge. Possible discharge Saturday back to [facility] Admission and Anticipated Discharge Date Admission Date: June 19, 2019 Supervising Physician Co-Signing Physician Notes Attending Attestation note: Chart reviewed in detail, care plan d/w ARTIS Mccormick. I agree w/ the [place]udson components of her documentation. 89yo female who had a documented fever at her personal senior living in the absence of other infectious symptoms. [facility] respiratory panel, COVID-19 testing, u/a, and cxr all without source for her fever. Unfortunately blood cx's were not drawn at time of admission. However, she has not had any fever since admission. Cause of hypoxia is uncertain. Echo 01/2019 without pulmonary HTN. 02/[address] with bronchitis type findings but no emphysema. Consider repeat chest CT while here if hypoxia recurs/persists. Agree that 2-step likely needed before discharge as well. If any recurrent fever - obtain blood cx's. Abimael Juárez MD Subjective Patient feeling much better today. Just had walked back from bathroom herself and got washed up upon arrival to room. Breathing comfortably on room air. The patient said she did have a fever up to 102F at one point but denies any further fever or chills. She denies cough or sputum production or known contacts with COVID-19. SHe states she lives at [facility] that had previously been [facility] and has been there for quite some time. She believes at one point she was supposed to be set up for oxygen to use as needed a while back, but she was never set up and had not required any recently. She feels that she would like she is ready for discharge, but is agreeable to await results of Bio[facility] and to obtain a two step prior to discharge to see if she needs any oxygen. She denies ever having needed a CPAP/BiPAP at night. Denies chest pain, visual changes, abdominal pain, n/v/d/c. Review of Systems Review of Systems: All systems reviewed & are unremarkable except as noted in HPI & below Physical Exam Constitutional: WD/WN, vitals as above + frail appearing; no acute distress Eyes: + anicteric sclerae and PERRL Neck: trachea midline, no thyromegaly Respiratory: normal respiratory effort, lungs clear to auscultation Cardiovascular: RRR, no murmur, no edema Gastrointestinal (Abdomen): normal bowel sounds, soft, nontender, no hepatosplenomegaly Musculoskeletal: no cyanosis or clubbing, extremities motor strength 5/5 Head/Neck/Chest: normocephalic and head atraumatic Skin: no rashes, warm and dry Neurologic: PERRL, EOMI, accommodation nl, no face palsy, no dysarthria Psychiatric: Orientation: alert and oriented x 3 Lymphatic: no cervical or axillary lymphadenopathy Results & Data Results & Data ([facility]) Vital Signs (Past 12 Hours) Vital Signs Temp Pulse Resp BP Pulse Ox 06/20/19 07:25 36.7 C 79 20 145/83 H 91 Laboratory Results 06/20/19 06/20/19 06/19/19 Range/Units 05:08 05:08 18:56 WBC 9.63 (4.8-10.8) K/uL RBC 4.46 (4.2-5.4) M/uL Hgb 13.8 (12.0-16.0) g/dL Hct 41.0 (37-47) % MCV 91.9 (80-100) fL MCH 30.9 (25-34) pg MCHC 33.7 (32-36) g/dL RDW Std Deviation 43.2 (36.4-46.3) fL RDW Coeff of Ivory 12.9 (11.5-14.5) % Plt Count 181 (130-400) K/uL MPV 10.4 (7.4-10.4) fL Sodium 136 (136-145) mmol/L Potassium 3.5 (3.5-5.1) mmol/L Chloride 102 (98-107) mmol/L Carbon Dioxide 29 (21-32) mmol/L Anion Gap 6.0 (3-11) BUN 17 D (7-18) mg/dl Creatinine 0.83 (0.6-1.2) mg/dl Est Cr Clr Drug Dosing 47.8 ml/min Est GFR ( Amer) 73.5 Est GFR (Non-Af Amer) 63.4 BUN/Creatinine Ratio 20.6 H (10-20) Glucose 138 H (70-99) mg/dl Calcium 9.1 (8.5-10.1) mg/dl Procalcitonin (0-0.5) ng/ml Nasal Screen MRSA (PCR) Negative (Negative) Adenovirus (PCR) B. pertussis DNA (PCR) B.parapertussis DNA PCR C. pneumoniae DNA (PCR) Coronavirus OC43 (PCR) Coronavirus HKU1 (PCR) Coronavirus 229E (PCR) COVID-19 PCR (Negative) Coronavirus NL63 (PCR) Human Metapneumovir PCR Influenza Type A (PCR) (Neg) Influenza Type B (PCR) (Neg) M. pneumoniae (PCR) Parainfluenza 1 (PCR) Parainfluenza 2 (PCR) Parainfluenza 3 (PCR) Parainfluenza 4 (PCR) RSV (PCR) Entero/Rhino (PCR) 06/19/19 06/19/19 06/19/19 Range/Units 16:35 11:06 11:06 WBC (4.8-10.8) K/uL RBC (4.2-5.4) M/uL Hgb (12.0-16.0) g/dL Hct (37-47) % MCV (80-100) fL MCH (25-34) pg MCHC (32-36) g/dL RDW Std Deviation (36.4-46.3) fL RDW Coeff of Ivory (11.5-14.5) % Plt Count (130-400) K/uL MPV (7.4-10.4) fL Sodium (136-145) mmol/L Potassium (3.5-5.1) mmol/L Chloride (98-107) mmol/L Carbon Dioxide (21-32) mmol/L Anion Gap (3-11) BUN (7-18) mg/dl Creatinine (0.6-1.2) mg/dl Est Cr Clr Drug Dosing ml/min Est GFR ( Amer) Est GFR (Non-Af Amer) BUN/Creatinine Ratio (10-20) Glucose (70-99) mg/dl Calcium (8.5-10.1) mg/dl Procalcitonin 0.06 (0-0.5) ng/ml Nasal Screen MRSA (PCR) (Negative) Adenovirus (PCR) Pending B. pertussis DNA (PCR) Pending B.parapertussis DNA PCR Pending C. pneumoniae DNA (PCR) Pending Coronavirus OC43 (PCR) Pending Coronavirus HKU1 (PCR) Pending Coronavirus 229E (PCR) Pending COVID-19 PCR NEGATIVE (Negative) Coronavirus NL63 (PCR) Pending Human Metapneumovir PCR Pending Influenza Type A (PCR) Pending (Neg) Influenza Type B (PCR) Pending (Neg) M. pneumoniae (PCR) Pending Parainfluenza 1 (PCR) Pending Parainfluenza 2 (PCR) Pending Parainfluenza 3 (PCR) Pending Parainfluenza 4 (PCR) Pending RSV (PCR) Pending Entero/Rhino (PCR) Pending 06/19/19 Range/Units 11:06 WBC (4.8-10.8) K/uL RBC (4.2-5.4) M/uL Hgb (12.0-16.0) g/dL Hct (37-47) % MCV (80-100) fL MCH (25-34) pg MCHC (32-36) g/dL RDW Std Deviation (36.4-46.3) fL RDW Coeff of Ivory (11.5-14.5) % Plt Count (130-400) K/uL MPV (7.4-10.4) fL Sodium (136-145) mmol/L Potassium (3.5-5.1) mmol/L Chloride (98-107) mmol/L Carbon Dioxide (21-32) mmol/L Anion Gap (3-11) BUN (7-18) mg/dl Creatinine (0.6-1.2) mg/dl Est Cr Clr Drug Dosing ml/min Est GFR ( Amer) Est GFR (Non-Af Amer) BUN/Creatinine Ratio (10-20) Glucose (70-99) mg/dl Calcium (8.5-10.1) mg/dl Procalcitonin (0-0.5) ng/ml Nasal Screen MRSA (PCR) (Negative) Adenovirus (PCR) B. pertussis DNA (PCR) B.parapertussis DNA PCR C. pneumoniae DNA (PCR) Coronavirus OC43 (PCR) Coronavirus HKU1 (PCR) Coronavirus 229E (PCR) COVID-19 PCR (Negative) Coronavirus NL63 (PCR) Human Metapneumovir PCR Influenza Type A (PCR) Neg for Influ A (Neg) Influenza Type B (PCR) Neg for Influ B (Neg) M. pneumoniae (PCR) Parainfluenza 1 (PCR) Parainfluenza 2 (PCR) Parainfluenza 3 (PCR) Parainfluenza 4 (PCR) RSV (PCR) Entero/Rhino (PCR) PG Care Time/CCT Total # of Minutes Spent Total Time Spent with Patient: Total time spent is greater than 50% in coordination of care (as documented) at patient's floor/unit and/or counseling patient: Coding Level of Care Code 31249 Subseq Hosp Care Lvl 2 Diagnoses Hypoxemia R09.02 Dark urine R82.998 Hypertension I10 Depression with anxiety F41.8 GERD (gastroesophageal reflux disease) K21.9 DVT prophylaxis Z29.9
[2019-06-20 11:46] LABS: Adenovirus PCR Not Detected (NotDetected); Bordetella parapertussis PCR Not Detected (NotDetected); Bordetella pertussis PCR Not Detected (NotDetected); Chlamydia pneumoniae PCR Not Detected (NotDetected); Coronavirus 229E PCR Not Detected (NotDetected); Coronavirus HKU1 PCR Not Detected (NotDetected); Coronavirus NL63 PCR Not Detected (NotDetected); Coronavirus OC43PCR Not Detected (NotDetected); Human Metapneumovirus PCR Not Detected (NotDetected); Influenza A PCR Not Detected (NotDetected); Influenza B PCR Not Detected (NotDetected); Mycoplasma pneumoniae PCR Not Detected (NotDetected); Parainfluenza Virus 1 PCR Not Detected (NotDetected); Parainfluenza Virus 2 PCR Not Detected (NotDetected); Parainfluenza Virus 3 PCR Not Detected (NotDetected); Parainfluenza Virus 4 PCR Not Detected (NotDetected); Respiratory Syncytial VirusPCR Not Detected (NotDetected); Rhinovirus/Enterovirus PCR Not Detected (NotDetected)
[2019-06-20] MEDS: VERAPAMIL HCL 240 MG TABCR PO SCH (20:23)
[2019-06-21 06:09] LABS: Hematocrit (blood only) 42.9 % (37-47); Hemoglobin 14.5 g/dL (12.0-16.0); Mean Corpuscular Hemoglobin 31.1 pg (25-34); Mean Corpuscular Hgb Conc 33.8 g/dL (32-36); Mean Corpuscular Volume 92.1 fL (80-100); Mean Platelet Volume 10.8 fL (7.4-10.4); Platelet Count 186 K/uL (130-400); RDW Coefficient of Variation 13.3 % (11.5-14.5); RDW Standard Deviation 44.5 fL (36.4-46.3); Red Blood Count 4.66 M/uL (4.2-5.4); White Blood Count 6.93 K/uL (4.8-10.8)
[2019-06-21 06:37] LABS: BUN Creatinine Ratio 31.1 (10-20); Creatinine Clr Calc Pharmacy 49.6 ml/min; Est GFR (African American) 76.8; Est GFR (Non-African American) 66.3; Potassium 3.4 mmol/L (3.5-5.1)
[2019-06-21] MEDS ORDERED: POTASSIUM CHLORIDE 20 MEQ TABCR PO STA (07:32)
[2019-06-21] MEDS ORDERED: METOPROLOL TARTRATE 25 MG TAB PO STA (07:33)
[2019-06-21] MEDS: ESCITALOPRAM OXALATE 20 MG TAB PO SCH (08:13)
[2019-06-21] MEDS: hydroCHLOROthiazide 25 MG TAB PO SCH (08:13)
[2019-06-21] MEDS: PANTOprazole 40 MG TAB PO SCH (08:14)
--- NOTE | 2019-06-21 08:30 | Hospitalist Progress Note ---
Date of Service June 21, 2019 Assessment & Plan (1) Hypoxemia: * Admitted with reported O2 sat dropped to 65-70% on RA at [facility]. Mid 80s on admission. Of note, patient mentions that she believes at one point she was supposed to be on oxygen as needed, but never received this. * CXR without acute process * COVID-19 negative * BioFire panel negative * BNP 134, unlikely related to congestive changes. Procalcitonin 0.06. No abx at this time. * Patient afebrile, currently 36.8C, 95% on RA * Duonebs prn * Possible that age-related changes causing mild hypoxemia --> unsure if patient would benefit from home O2 given 91% currently on RA --> Of note, patient did have 2-step back in January 2019 and did not qualify at that time, per notes * As patient reports not taking deep breaths, incentive spirometer was provided. Patient notes compliance * Repeat 2step without qualification for O2 with ambulation. Currently 95% on RA (2) Dark urine: * Patient notes her urine is "darker yellow" than usual. WIthout evidence of RODRIGO on admission. Cr currently 0.83. --> outcome analyst today * No dysuria, no incomplete voiding sensation, no leukocytosis. * Did have self reported fever 5/7 Tmax 102F * If symptomatic, obtain UA * Continue to monitor (3) Dehydration: * BUN 25, Cr 0.8, BUN/Cr 31.1 * Orthostatic VS obtained -- lying 163/84, sitting 155/52, standing 150/83 * Likely secondary to increase HCTZ --> Will decrease back to 12.5mg daily and increase verapamil instead * Will given gentle IVF and repeat labs in AM (4) Hypertension: * Chronic. Stable. Currently 171/89. Given metoprolol 12.5mg x 1. Asymptomatic * BP as high as 180/90 in the ED in the setting of stress/anxiety of the hospital on admission. No symptoms of hypertensive urgency. * Will decrease HCTZ (as causing dehydration) back to 12.5mg PO daily and increase verapamil to 360mg PO daily * Continue to monitor (5) Depression with anxiety: * Chronic. Stable * Prior episodes of anxiety (not called panic attacks that I see in the record) treated with a sparse, low-dose benzo, along with SSRI. * Continue home lexapro 20mg daily, xanax 0.125mg prn (6) GERD (gastroesophageal reflux disease): * Chronic. Stable. Patient takes omeprazole at home --> continue protonix 40mg daily while inpatient * Continue to monitor (7) DVT prophylaxis: * Low DVT risk per admission calculator * SCDs Dispo: patient from [facility] ([facility]), likely discharge Saturday if dehydration resolved. Daughter able to provide transportation. Admission and Anticipated Discharge Date Admission Date: June 19, 2019 Supervising Physician Co-Signing Physician Notes Attending Attestation note: Chart reviewed in detail, care plan d/w PA Lesly Mccormick. I agree w/ the hudson components of her documentation. 89yo female who had a documented fever [facility] in the absence of other infectious symptoms on 06/17. Biofire respiratory panel, COVID-19 testing, u/a, and cxr all without source for her fever. Has had no fever during this stay and is feeling well. Unfortunately blood cx's were not drawn at time of admission. Had transient hypoxia also at personal prison and briefly early in this admission but none since. 2-step today w/o drop in O2 sats. Cause of transient hypoxia pre-hospital also uncertain. Agree with plans for adjustment in BP meds, IV fluids, and probable d/c to [facility] tomorrow. Labs continue to remain acceptable. Abimael Juárez MD Subjective Patient feeling well today. Voices that she would like to go home but does endorse dry mouth and increased urination since increased HCTZ dose. Patient states she has not had any further shortness of breath, fevers or chills. Agreeable to adjustments to BP medications although she does state that it has always run high. Agreeable to gentle fluids and increasing veramapil to see if this helps. All questions/concerns addressed. Review of Systems Review of Systems: All systems reviewed & are unremarkable except as noted in HPI & below Constitutional: no fever and no chills Ear, Nose, Mouth, Throat: no sore throat and no dysphagia Respiratory: no cough and no dyspnea Cardiovascular: no chest pain and no palpitations Gastrointestinal: no abdominal pain, no nausea and no vomiting Genitourinary: + urinary frequency (increased); no dysuria and no hematuria Physical Exam Constitutional: WD/WN, vitals as above + frail appearing; no acute distress Eyes: + anicteric sclerae and PERRL Neck: trachea midline, no thyromegaly Respiratory: normal respiratory effort, lungs clear to auscultation Cardiovascular: RRR, no murmur, no edema Gastrointestinal (Abdomen): normal bowel sounds, soft, nontender, no hepatosplenomegaly Musculoskeletal: no cyanosis or clubbing, extremities motor strength 5/5 Head/Neck/Chest: normocephalic and head atraumatic Skin: no rashes, warm and dry mm dry Neurologic: PERRL, EOMI, accommodation nl, no face palsy, no dysarthria Psychiatric: Orientation: alert and oriented x 3 Lymphatic: no cervical or axillary lymphadenopathy Results & Data Results & Data ([facility]) Vital Signs (Past 12 Hours) Vital Signs Temp Pulse Pulse Pulse Pulse Resp Resp 06/21/19 07:28 80 76 72 16 06/21/19 07:27 36.8 C 71 20 06/20/19 23:00 36.6 C 65 20 Resp Resp BP BP Pulse Ox Pulse Ox Pulse Ox 06/21/19 07:28 16 16 93 95 06/21/19 07:27 194/85 H 92 06/20/19 23:00 164/71 H 96 Pulse Ox 06/21/19 07:28 94 06/21/19 07:27 06/20/19 23:00 Laboratory Results 06/21/19 06/21/19 06/19/19 Range/Units 05:27 05:27 11:06 WBC 6.93 (4.8-10.8) K/uL RBC 4.66 (4.2-5.4) M/uL Hgb 14.5 (12.0-16.0) g/dL Hct 42.9 (37-47) % MCV 92.1 (80-100) fL MCH 31.1 (25-34) pg MCHC 33.8 (32-36) g/dL RDW Std Deviation 44.5 (36.4-46.3) fL RDW Coeff of Ivory 13.3 (11.5-14.5) % Plt Count 186 (130-400) K/uL MPV 10.8 H (7.4-10.4) fL Sodium 137 (136-145) mmol/L Potassium 3.4 L (3.5-5.1) mmol/L Chloride 100 (98-107) mmol/L Carbon Dioxide 31 (21-32) mmol/L Anion Gap 6.0 (3-11) BUN 25 H (7-18) mg/dl Creatinine 0.80 (0.6-1.2) mg/dl Est Cr Clr Drug Dosing 49.6 ml/min Est GFR ( Amer) 76.8 Est GFR (Non-Af Amer) 66.3 BUN/Creatinine Ratio 31.1 H (10-20) Glucose 91 (70-99) mg/dl Calcium 9.0 (8.5-10.1) mg/dl Adenovirus (PCR) Not Detected (NotDetected) B. pertussis DNA (PCR) Not Detected (NotDetected) B.parapertussis DNA PCR Not Detected (NotDetected) C. pneumoniae DNA (PCR) Not Detected (NotDetected) Coronavirus OC43 (PCR) Not Detected (NotDetected) Coronavirus HKU1 (PCR) Not Detected (NotDetected) Coronavirus 229E (PCR) Not Detected (NotDetected) Coronavirus NL63 (PCR) Not Detected (NotDetected) Human Metapneumovir PCR Not Detected (NotDetected) Influenza Type A (PCR) Not Detected (NotDetected) Influenza Type B (PCR) Not Detected (NotDetected) M. pneumoniae (PCR) Not Detected (NotDetected) Parainfluenza 1 (PCR) Not Detected (NotDetected) Parainfluenza 2 (PCR) Not Detected (NotDetected) Parainfluenza 3 (PCR) Not Detected (NotDetected) Parainfluenza 4 (PCR) Not Detected (NotDetected) RSV (PCR) Not Detected (NotDetected) Entero/Rhino (PCR) Not Detected (NotDetected) PG Care Time/CCT Total # of Minutes Spent Total Time Spent with Patient: Total time spent is greater than 50% in coordina tion of care (as documented) at patient's floor/unit and/or counseling patient: Coding Level of Care Code 88878 Subseq Hosp Care Lvl 3 Diagnoses Hypoxemia R09.02 Dark urine R82.998 Dehydration E86.0 Hypertension I10 Depression with anxiety F41.8 GERD (gastroesophageal reflux disease) K21.9 DVT prophylaxis Z29.9
--- NOTE | 2019-06-21 10:43 | Discharge Summary ---
Date of Service June 21, 2019 Admission HPI Per Admitting Provider 89 yo F w/ hx of bronchitis and anxiety who presents with hypoxemia. Overall, she has been in her normal state of health over the last few days. Yesterday, she was reported to have a fever as high as 102, but was otherwise asymptomatic. Given coronavirus pandemic, she was tested for Covid. This morning, with her vital signs, reportedly her O2 saturation was in the 65-70% range. The RN at [facility] reports it was that low for a few minutes as she went to call , then rebounded to the mid 80% range without treatment. Per both the patient and the RN Melyssa, Ms. Eldridge was asymptomatic at that time and had no cough, shortness of breath, chest pain, dizziness, or other symptoms. At the time of interview, the patient reports no respiratory symptoms at all, again denying any cough or shortness of breath in the last few days. She reports she did not feel feverish when her temperature was taken yesterday. She does note some darker yellow urine, but denies any dysuria, polyuria, or other concerning symptoms. Discharge Data Allergies Allergy/AdvReac Type Severity Reaction Status Date / Time lisinopril Allergy Unknown MYALGIA Verified 06/19/19 11:15 codeine AdvReac Unknown "HIGH" Verified 06/19/19 11:15 donepezil [From Aricept] AdvReac Unknown Unknown Unverified 06/19/19 11:15 morphine AdvReac Unknown Unknown Unverified 06/19/19 11:15 Opioids - Morphine Analogues AdvReac Unknown Unknown Unverified 06/19/19 11:15 Consultations 06/19/19 13:34 ED Decision to Admit Stat Hospital Course (1) Hypoxemia: * Admitted with reported O2 sat dropped to 65-70% on RA at [facility]. Mid 80s on admission. Of note, patient mentions that she believes at one point she was supposed to be on oxygen as needed, but never received this. * CXR without acute process * COVID-19 negative * BioFire panel pending * BNP 134, unlikely related to congestive changes. Procalcitonin 0.06. No abx at this time. * Patient afebrile, currently 36.7C, 91% on RA * Smita prn * Possible that age-related changes causing mild hypoxemia --> unsure if patient would benefit from home O2 given 91% currently on RA, however will obtain 2- step prior to discharge --> Of note, patient did have 2-step back in January 2019 and did not qualify at that time, per notes (2) Dark urine: * Patient notes her urine is "darker yellow" than usual. WIthout evidence of RODRIGO on admission. Cr currently 0.83. --> connection worker today * No dysuria, no incomplete voiding sensation, no leukocytosis. * Did have reported fever 5/7 Tmax 102F * If symptomatic, obtain UA * Continue to monitor (3) Hypertension: * Chronic. Stable. Currently 145/83 * BP as high as 180/90 in the ED in the setting of stress/anxiety of the hospital on admission. No symptoms of hypertensive urgency. * Continue increased HCTZ 25mg daily (increased from 12.5mg home dose) -- continue on higher dose at discharge * Continue home verapamil 240mg daily * Continue to monitor (4) Depression with anxiety: * Chronic. Stable * Prior episodes of anxiety (not called panic attacks that I see in the record) treated with a sparse, low-dose benzo, along with SSRI. * Continue home lexapro 20mg daily, xanax 0.125mg prn (5) GERD (gastroesophageal reflux disease): * Chronic. Stable. Patient takes omeprazole at home --> continue protonix 40mg daily while inpatient * Continue to monitor (6) DVT prophylaxis: * Low DVT risk per admission calculator * SCDs Dispo: patient from [facility]) -- likely to remain hospitalized overnight, await BioFire. 2 step prior to discharge. Possible discharge Saturday back to [facility] Discharge Plan Discharge Items Reason For Visit: SHORTNESS OF BREATH,HYPOXEMIA Stand-Alone Forms: My [facility] Medications and DC Order Prescriptions: No Action Osteo Bi-Flex Triple Strength 750 mg-644 mg- 30 mg-1 mg tablet 1 tab PO TIDM RF: 0 Ocuvite Eye Plus Multi 200-15-150 mcg tablet 1 tab PO DAILY@0830 RF: 0 docusate sodium 100 mg capsule 100 mg PO BID PRN (Reason: constipation) Qty: 60 RF: 0 sennosides 8.6 mg tablet 8.6 mg PO BID PRN (Reason: Constipation) Qty: 60 RF: 0 pseudoephedrine-guaifenesin [Mucinex D] 60-600 mg Tablet Extended Release 12 Hr 1 tab PO BID PRN (Reason: Cold Symptoms) RF: 0 cholecalciferol (vitamin D3) [Vitamin D3] 2,000 unit Tablet 2,000 unit PO DAILY@0830 RF: 0 hydrochlorothiazide 12.5 mg capsule 12.5 mg PO DAILY@0830 RF: 0 omeprazole 20 mg capsule,delayed release(DR/EC) 20 mg PO DAILY@0830 RF: 0 verapamil 240 mg tablet extended release 240 mg PO DAILY@2100 RF: 0 calcium carbonate-vitamin D3 [Calcium 500 + D] 500 mg(1,250mg) -200 unit tablet 1 tab PO DAILY@0830 RF: 0 alprazolam [Xanax] 0.25 mg tablet 0.125 mg PO TID PRN (Reason: anxiety) Qty: 30 RF: 0 escitalopram oxalate 20 mg tablet 20 mg PO DAILY@0830 RF: 0 Admission Data Admit Date/Time: 06/19/19 14:12 Attending Provider: Abimael Juárez Admit Provider: Ritesh Macdonald Primary Care Provider: Alyse Ruiz Other Providers: Ritesh Macdonald Coding Diagnoses Hypoxemia R09.02 Dark urine R82.998 Hypertension I10 Depression with anxiety F41.8 GERD (gastroesophageal reflux disease) K21.9 DVT prophylaxis Z29.9
[2019-06-21] MEDS ORDERED: SODIUM CHLORIDE 0.9% 1000ML 500 ML IV SCH (14:45)
[2019-06-21] MEDS ORDERED: VERAPAMIL HCL 180 MG TABCR PO SCH (21:00)
[2019-06-22 06:21] LABS: BUN Creatinine Ratio 26.9 (10-20); Calcium 9.1 mg/dl (8.5-10.1); Creatinine Clr Calc Pharmacy 40.1 ml/min; Est GFR (African American) 59.4; Est GFR (Non-African American) 51.2; Potassium 3.6 mmol/L (3.5-5.1)
[2019-06-22] MEDS: PANTOprazole 40 MG TAB PO SCH (07:45)
[2019-06-22] MEDS: ESCITALOPRAM OXALATE 20 MG TAB PO SCH (07:45)
[2019-06-22] MEDS ORDERED: hydroCHLOROthiazide 25 MG TAB PO SCH (08:30)
--- NOTE | 2019-06-22 10:23 | Discharge Summary ---
Date of Service June 22, 2019 Admission HPI Per Admitting Provider 89 yo F w/ hx of bronchitis and anxiety who presents with hypoxemia. Overall, she has been in her normal state of health over the last few days. Yesterday, she was reported to have a fever as high as 102, but was otherwise asymptomatic. Given coronavirus pandemic, she was tested for Covid. This morning, with her vital signs, reportedly her O2 saturation was in the 65-70% range. The RN at [facility] reports it was that low for a few minutes as she went to call , then rebounded to the mid 80% range without treatment. Per both the patient and the RN Melyssa, Ms. Eldridge was asymptomatic at that time and had no cough, shortness of breath, chest pain, dizziness, or other symptoms. At the time of interview, the patient reports no respiratory symptoms at all, again denying any cough or shortness of breath in the last few days. She reports she did not feel feverish when her temperature was taken yesterday. She does note some darker yellow urine, but denies any dysuria, polyuria, or other concerning symptoms. Principal Diagnosis Acute hypoxia, resolved Discharge Exam Constitutional WD/WN, vitals as above Eyes PERRL, conjunctivae normal, anicteric sclerae ENMT external ear and nose normal, oropharynx normal Neck trachea midline, no thyromegaly Respiratory normal respiratory effort, lungs clear to auscultation Cardiovascular RRR, no murmur, no edema Gastrointestinal (Abdomen) normal bowel sounds, soft, nontender, no hepatosplenomegaly Musculoskeletal no cyanosis or clubbing, extremities motor strength 5/5 Skin no rashes, warm and dry Neurologic patellar DTR's 2+ bilat, sensation intact and PERRL, EOMI, accommodation nl, no face palsy, no dysarthria Psychiatric A+Ox3, euthymic affect Lymphatic no cervical or axillary lymphadenopathy Discharge Data Allergies Allergy/AdvReac Type Severity Reaction Status Date / Time lisinopril Allergy Unknown MYALGIA Verified 06/19/19 11:15 codeine AdvReac Unknown "HIGH" Verified 06/19/19 11:15 donepezil [From Aricept] AdvReac Unknown Unknown Unverified 06/19/19 11:15 morphine AdvReac Unknown Unknown Unverified 06/19/19 11:15 Opioids - Morphine Analogues AdvReac Unknown Unknown Unverified 06/19/19 11:15 Consultations 06/19/19 13:34 ED Decision to Admit Stat Hospital Course (1) Hypoxemia: * Admitted with reported O2 sat dropped to 65-70% on RA at [facility]. Mid 80s on admission. Of note, patient mentions that she believes at one point she was supposed to be on oxygen as needed, but never received this. * CXR without acute process * COVID-19 negative * BioFire panel negative * BNP 134, unlikely related to congestive changes. Procalcitonin 0.06. No abx at this time. * Patient afebrile * Duonebs prn * Possible that age-related changes causing mild hypoxemia --> unsure if patient would benefit from home O2 given 91% currently on RA --> Of note, patient did have 2-step back in January 2019 and did not qualify at that time, per CM notes * As patient reports not taking deep breaths, incentive spirometer was provided. Patient notes compliance * Repeat 2step without qualification for O2 with ambulation. Currently 95% on RA safe to d/c back to [facility] (2) Dark urine: * Patient notes her urine is "darker yellow" than usual. WIthout evidence of RODRIGO on admission. Cr stable * No dysuria, no incomplete voiding sensation, no leukocytosis. * Did have self reported fever 06/17 Tmax 102F treated with IV fluids on 06/20, drinking well, no further fluids needed, d/c to [facility] (3) Dehydration: * BUN 25, Cr 0.8, BUN/Cr 31.1 * Orthostatic VS obtained -- lying 163/84, sitting 155/52, standing 150/83 * Likely secondary to increase HCTZ --> Will decrease back to 12.5mg daily * resolved with gentle IV fluids (4) Hypertension: * Chronic. pressures elevated at times here, 170-180 systolic * No symptoms of hypertensive urgency. * increase verapamil to 360mg PO daily, continue HCTZ 12.5mg daily * monitor as outpatient (5) Depression with anxiety: * Chronic. Stable * Prior episodes of anxiety (not called panic attacks that I see in the record) treated with a sparse, low-dose benzo, along with SSRI. * Continue home lexapro 20mg daily, xanax 0.125mg prn (6) GERD (gastroesophageal reflux disease): * Chronic. Stable. Patient takes omeprazole at home --> continue protonix 40mg daily while inpatient * Continue to monitor (7) DVT prophylaxis: * Low DVT risk per admission calculator * SCDs Dispo: patient from [facility] ([facility]), likely discharge Saturday if dehydration resolved. Daughter able to provide transportation. Total Time Total Time Spent Total Time Spent (In Minutes): 32 minutes Total Time Includes: Examination of the Patient, Discharge Planning, Medication Reconciliation and Other (spoke with patient's daughter) Discharge Plan Discharge Items Patient Disposition: Personal Long-Term Reason For Visit: SHORTNESS OF BREATH,HYPOXEMIA Discharge Diagnosis: Shortness of Breath, Hypoxia Condition on Discharge: Good Goals: You have been hospitalized for an acute medical problem. During your stay at [facility], we have made an effort to correct the problem that brought you to the hospital while keeping you as comfortable as possible. Medications were used to bring your condition under control and your discharge instructions will include directions for any medications you should take after leaving the hospital. Please make sure you see your Primary Care Provider as part of your follow up plan. Activity: Resume your previous activity Non-emergency contact: Primary Care Provider Call non-emergency contact if: you have any medication questions, your symptoms worsen and you have a fever Follow-up/Referrals: Alyse Ruiz MD [Primary Care Provider] - Diet: Heart Healthy Addtl Attending Provider Instructions: You have been hospitalized for a low oxygen saturation and a fever. Imaging and lab work do not show evidence of any acute infection. You were tested for COVID-19 as well as a viral panel for common pathogens of the upper airway. Those were both found to be negative. A test was performed prior to your discharge to see if you require oxygen with ambulation, which showed you do not need this at this time. The following medication changes have been made: 1. Verapamil -- your dose was increased to 360mg by mouth daily 2. Albuterol HFA -- you are being sent with an albuterol inhaler to use as needed for shortness of breath given your history of bronchitis. Please follow up with your primary care provider in the next week. Please return to the emergency room if you experience any worsening shortness of breath, fevers, or for any symptoms that are concerning for you. It has been a pleasure being a part of the medical team providing for you during your hospitalization. Take care! Pending Studies at Discharge: No Stand-Alone Forms: My [employer] Smoking Cessation Skilled Items Patient informed of condition?: Yes DNR: Yes Discharge Level of Care: Other Communicable Disease: No Discharge Prognosis: Stable Lines: None Urinary Catheter: No Medications and DC Order Prescriptions: New albuterol sulfate 90 mcg/actuation aerosol powdr breath activated 1 puffs INH Q6H PRN (Reason: shortness of breath or wheezing) Qty: 1 RF: 0 verapamil 180 mg Tablet Extended Release 360 mg PO DAILY@2100 30 Days Qty: 60 RF: 0 Continued Osteo Bi-Flex Triple Strength 750 mg-644 mg- 30 mg-1 mg tablet 1 tab PO TIDM RF: 0 Ocuvite Eye Plus Multi 200-15-150 mcg tablet 1 tab PO DAILY@0830 RF: 0 docusate sodium 100 mg capsule 100 mg PO BID PRN (Reason: constipation) Qty: 60 RF: 0 sennosides 8.6 mg tablet 8.6 mg PO BID PRN (Reason: Constipation) Qty: 60 RF: 0 pseudoephedrine-guaifenesin [Mucinex D] 60-600 mg Tablet Extended Release 12 Hr 1 tab PO BID PRN (Reason: Cold Symptoms) RF: 0 cholecalciferol (vitamin D3) [Vitamin D3] 2,000 unit Tablet 2,000 unit PO DAILY@0830 RF: 0 hydrochlorothiazide 12.5 mg capsule 12.5 mg PO DAILY@0830 RF: 0 omeprazole 20 mg capsule,delayed release(DR/EC) 20 mg PO DAILY@0830 RF: 0 calcium carbonate-vitamin D3 [Calcium 500 + D] 500 mg(1,250mg) -200 unit tablet 1 tab PO DAILY@0830 RF: 0 alprazolam [Xanax] 0.25 mg tablet 0.125 mg PO TID PRN (Reason: anxiety) Qty: 30 RF: 0 escitalopram oxalate 20 mg tablet 20 mg PO DAILY@0830 RF: 0 Discontinued verapamil 240 mg tablet extended release 240 mg PO DAILY@2100 RF: 0 Discharge Orders: Discharge Order (Routine); Ordered 06/22/19 Ordered By: Kyler Lucio Admission Data Admit Date/Time: 05/08/20 14:12 Attending Provider: Kyler Lucio Admit Provider: Ritesh Macdonald Primary Care Provider: Alyse Ruiz Other Providers: Ritesh Macdonald Other Interventions: Discharge Summary Assessment (RN) Last Done: 06/22/19 10:36 DC Date/Time DO NOT enter until pt leaves facility: 06/22/19 13:43 Coding Level of Care Code D/C Day Management >30 mins Diagnoses Hypoxemia R09.02 Dark urine R82.998 Dehydration E86.0 Hypertension I10 Depression with anxiety F41.8 GERD (gastroesophageal reflux disease) K21.9 DVT prophylaxis Z29.9
== END 2019-06-22 13:43 | disposition home or self-care (01) | DRG 206 ==
LOC: ED 10:21 → SUATTDRO 14:12 → 2N 14:12

== ENCOUNTER 2020-12-03 09:03 | Observation (INO) ==
--- NOTE | 2020-12-03 09:15 | Emergency Department Note ---
Impression & Plan Aspiration pneumonia, Hypoxia ED Provider Note Name: CHEYENNE MARINELLI Age: 89 Sex: F Arrives Via: Ambulance Informant: Patient, Daughter, Nursing notes ED Provider: Real Loera MD Chief Complaint: cough Impression: Aspiration Pneumonia Hypoxia Medical Decision Makin yr old female living at local nursing facility arrives for evaluation of worsening cough and hypoxia. Choked while drinking coffee two days ago and worsening breathing since then. Febrile this morning. Mildly confused which improved with NC O2. Junky lung sounds without significant respiratory distress. CXR not overly impressive though with findings and no clear evidence of other infection this is likely aspiration pneumonia. Cultures obtained and given IV unasyn for coverage. Given hypoxia hospitalist consulted for further management. Prior Medical Record and Triage/Nursing Notes reviewed by Me Additional history obtained from chart Differentials:Viral syndrome, otitis, pharyngitis, pneumonia, influenza, meningitis, urinary tract infection, sepsis, bacteremia, as well as other pathologies. Vital Signs: reviewed and remarkable for HTN, Hypoxia, Fever Interventions: Tylenol PO, Unasyn Labs:Reviewed and remarkable for no significant abnormalities Imaging:See below EKG:Per My Interpretation: Indication SHOB: NSR 100 bpm with 1st av block, qtc 466. No Ectopy. No Ischemia. Compared to EKG 06/02/20, no significant changes. Cardiac/Tele Monitoring: Cardiac Monitoring: An Order was placed for continuous cardiac monitoring. The monitor shows a rate of 80 with a normal sinus rhythm. Consults:Dr Brook FREEMAN Hospitalist Plan: Disposition:Hospitalization. Condition: Good History of Present Illness:89 yr old female arrives for evaluation of shortness of breath. Worsening shortness of breath over last 24 hours. This morning hypoxic and mildly confused beyond baseline this morning. No meds prior to arrival. Nothing makes better nor worse. No syncope, falls trauma. Patient states she feels fine and is asking for a cup of coffee. No other symptoms repo rted. No recent infections per notes. ROS: See above HPI for pertinent positives & negatives. A total of 10 systems reviewed and were otherwise negative. Past Medical History:See Below Past Surgical History:See Below Family History:See Below Social History:See Below Home Medications:See Below Allergies:See Below Vitals:Blood Pressure: 200/100, Pulse 70, RR 18, T 38.2C, O2 85% on RA Physical Exam: GENERAL: Patient is chronically unwell appearing and in minimal distress. EYES: No scleral icterus, unremarkable pupils. ENT: Mucous membranes moist, no nasal congestion. NECK: No masses appreciated, nomeningismus, trachea is midline. RESPIRATORY: No dyspnea. Clear to auscultation and equal bilaterally. No wheeze, no rhonchi. CARDIOVASCULAR: Regular rate and rhythm.No murmurs, rubs, gallops appreciated. GASTROINTESTINAL: Abdomen soft, non-tender, no peritonitis.Bowel sounds positive.No masses appreciated. BACK: No midline tenderness, no CVA tenderness EXTREMITIES: Normal motion all extremities, no cyanosis, no edema. NEUROLOGIC: Mildly confused, Awake, no acute motor or sensory deficits, no focal weakness, cranial nerves grossly intact. SKIN: No rash, no jaundice, no diaphoresis. PSYCH: Appropriate GCS: 15 ED Course: Times/Reassessments: Stable, improving mental status on NC O2 Real Loera MD Past Med/Surg History Medical History (Updated 12/03/20 @ 12:14 by FREYA Marx) Aortic valve sclerosis Atrial premature beats Cervicalgia Velez angioma Constipation Depression with anxiety Diverticulitis of colon Hepatic lesion Herpes zoster without complication Hyperlipidemia Hypertension Mitral regurgitation Murmur Osteopenia Paroxysmal SVT (supraventricular tachycardia) Peripheral neuropathy Seborrheic keratosis Short-term memory loss Tubular adenoma of colon Surgical History Hx of cholecystectomy Hx of oral surgery Hx of tubal ligation Family History Brother Colorectal cancer Denies family history of Ovarian cancer Prostate cancer Myocardial infarction Breast cancer Social History Smoking Status: Never smoker Second Hand Exposure: No; Hx Alcohol Use: Yes Alcohol type: beer and wine Hx Substance Use: No Preferred Language: Salvadorean Communication Ability: Effective Pipelayer Required: No Beliefs That Will Affect Care: None marital status: / Current Living Situation: Personal Care Facility Current Living Situation Comment: [place] [facility] current occupational status: retired How many Children do You have: 6 Other Information That Helps Us Care for You: No Feels Safe at Home: Yes Safety Concerns: Feels Safe At This Time caffeine: Yes Dental Care, Regularly: No Physical Activity Frequency: 1-2 Times per Week Seatbelt Use: always Sunscreen Use: No Assistive Devices: Cane, Denture - Upper, Denture - Lower and Glasses Allergies Allergies Allergy/AdvReac Type Severity Reaction Status Date / Time lisinopril Allergy Unknown MYALGIA Verified 12/03/20 09:30 codeine AdvReac Unknown "HIGH" Verified 12/03/20 09:30 donepezil [From Aricept] AdvReac Unknown Unknown Unverified 12/03/20 09:30 morphine AdvReac Unknown Unknown Unverified 12/03/20 09:30 Opioids - Morphine Analogues AdvReac Unknown Unknown Unverified 12/03/20 09:30 Home Meds Home Medications Medication Instructions Recorded Confirmed sennosides 8.6 mg tablet 8.6 mg PO BID PRN #60 tab 01/13/19 12/03/20 cholecalciferol (vitamin D3) 50 2,000 unit PO DAILY@30 01/18/19 12/03/20 mcg (2,000 unit) tablet (Vitamin D3) hydrochlorothiazide 12.5 mg capsule 12.5 mg PO DAILY@30 01/18/19 12/03/20 omeprazole 20 mg capsule,delayed 20 mg PO DAILY@30 01/18/19 12/03/20 release escitalopram oxalate 20 mg tablet 20 mg PO DAILY@30 06/19/19 12/03/20 verapamil 180 mg tablet,extended 360 mg PO QAM 06/02/20 12/03/20 release vit A 1,000 unit-C 200 mg-E 60 1 tab PO QAM 06/02/20 12/03/20 unit-lutein 2 mg and minerals tablet (I-Sonali) calcium carbonate 600 mg calcium 600 mg PO QAM 12/03/20 12/03/20 (1,500 mg) tablet (Calcium) glucosamine-chondroitin 250 mg-200 1 tab PO TID 12/03/20 12/03/20 mg tablet (Osteo Bi-Flex) Previous Rx's Medication Instructions Recorded docusate sodium 100 mg capsule 100 mg PO BID PRN #60 cap 09/13/18 acetaminophen 500 mg tablet 500 mg PO Q6H PRN #90 tab 03/18/20 (Tylenol Extra Strength) ibuprofen 200 mg tablet 200 mg PO Q6H PRN #90 tab 03/18/20 meclizine 12.5 mg tablet 12.5 mg PO TID PRN #60 tab 05/31/20 pseudoephedrine-guaifenesin ER 60 1 tab PO BID PRN #60 tab 12/01/20 mg-600 mg tablet,extend release 12hr (Mucinex D) Results & Data (ED) Vital Signs Vital Signs - 24 hr 12/03/20 09:02 12/03/20 09:19 12/03/20 10:00 Temperature 38.2 C H Temperature Source Oral Pulse Rate 102 H Pulse Rate [Right] Pulse Rhythm [Right] Pulse Strength [Right] Respiratory Rate 24 Respiratory Effort / Characteristics Short of Breath Short of Breath Respiratory Depth Blood Pressure 229/110 H Blood Pressure [Right Arm] Blood Pressure Mean 149 Blood Pressure Mean [Right Arm] Pulse Oximetry 87 L 87 L Oxygen Delivery Method Nasal Cannula Room Air Room Air Oxygen Flow Rate 2 Sepsis Recent Fever Within 48 Hours Yes Sepsis New/Unexplained Change in Mental Status N/A Sepsis Action Taken by Nursing Physician Notified Oxygen Flow Rate - Titration 3 Pulse Oximetry Post Tiitration 95 12/03/20 10:12 12/03/20 10:41 Temperature Temperature Source Pulse Rate Pulse Rate [Right] 91 H 94 H Pulse Rhythm [Right] Regular Pulse Strength [Right] Normal Respiratory Rate 22 20 Respiratory Effort / Characteristics Non-Labored Respiratory Depth Normal Blood Pressure Blood Pressure [Right Arm] 181/98 H Blood Pressure Mean Blood Pressure Mean [Right Arm] 125 Pulse Oximetry 95 95 Oxygen Delivery Method Nasal Cannula Nasal Cannula Oxygen Flow Rate 3 2 Sepsis Recent Fever Within 48 Hours Sepsis New/Unexplained Change in Mental Status Sepsis Action Taken by Nursing Oxygen Flow Rate - Titration Pulse Oximetry Post Tiitration Laboratory Data Result diagrams: 12/03/20 09:20 12/03/20 09:20 Lab Results 12/03/20 12/03/20 12/03/20 Range/Units 09:20 09:20 09:20 WBC 11.64 H (4.8-10.8) K/uL RBC 5.07 (4.2-5.4) M/uL Hgb 16.5 H (12.0-16.0) g/dL Hct 46.3 (37-47) % MCV 91.3 (80-100) fL MCH 32.5 (25-34) pg MCHC 35.6 (32-36) g/dL RDW Std Deviation 43.5 (36.4-46.3) fL RDW Coeff of Ivory 13.2 (11.5-14.5) % Plt Count 176 (130-400) K/uL MPV 10.1 (7.4-10.4) fL Immature Gran % (Auto) 0.2 % Neut % (Auto) 81.3 % Lymph % (Auto) 13.6 % Navarro % (Auto) 4.3 % Eos % (Auto) 0.4 % Baso % (Auto) 0.2 % Neut # (Auto) 9.47 H (1.4-6.5) K/uL Lymph # (Auto) 1.58 (1.2-3.4) K/uL Navarro # (Auto) 0.50 (0.11-0.59) K/uL Eos # (Auto) 0.05 (0-0.5) K/uL Baso # (Auto) 0.02 (0-0.2) K/uL Immature Gran # (Auto) 0.02 (0.00-0.02) K/uL PT (9.0-12.0) Seconds INR (0.9-1.1) Sodium 136 (136-145) mmol/L Potassium 3.7 (3.5-5.1) mmol/L Chloride 100 (98-107) mmol/L Carbon Dioxide 29 (21-32) mmol/L Anion Gap 7.0 (3-11) BUN 11 (7-18) mg/dl Creatinine 0.82 (0.6-1.2) mg/dl Est Cr Clr Drug Dosing 77.6 ml/min Est GFR ( Amer) 74.0 ml/min Est GFR (Non-Af Amer) 63.9 ml/min BUN/Creatinine Ratio 13.4 (10-20) Glucose 124 H (70-99) mg/dl Lactate 1.7 (0.4-2.0) mmol/L Calcium 9.2 (8.5-10.1) mg/dl Magnesium 2.0 (1.8-2.4) mg/dl Total Bilirubin 0.7 (0.2-1) mg/dl Direct Bilirubin < 0.1 (0-0.2) mg/dl AST 18 (15-37) U/L ALT 27 (12-78) U/L Alkaline Phosphatase 77 (45-117) U/L Troponin I < 0.015 (0-0.045) ng/ml NT-Pro-B Natriuret Pep 176 (0-1800) pg/ml Total Protein 8.0 (6.4-8.2) gm/dl Albumin 4.0 (3.4-5.0) gm/dl Lipase 50 L (73-393) U/L Procalcitonin (0-0.5) ng/ml 12/03/20 12/03/20 Range/Units 09:20 09:20 WBC (4.8-10.8) K/uL RBC (4.2-5.4) M/uL Hgb (12.0-16.0) g/dL Hct (37-47) % MCV (80-100) fL MCH (25-34) pg MCHC (32-36) g/dL RDW Std Deviation (36.4-46.3) fL RDW Coeff of Ivory (11.5-14.5) % Plt Count (130-400) K/uL MPV (7.4-10.4) fL Immature Gran % (Auto) % Neut % (Auto) % Lymph % (Auto) % Navarro % (Auto) % Eos % (Auto) % Baso % (Auto) % Neut # (Auto) (1.4-6.5) K/uL Lymph # (Auto) (1.2-3.4) K/uL Navarro # (Auto) (0.11-0.59) K/uL Eos # (Auto) (0-0.5) K/uL Baso # (Auto) (0-0.2) K/uL Immature Gran # (Auto) (0.00-0.02) K/uL PT 10.1 (9.0-12.0) Seconds INR 1.0 (0.9-1.1) Sodium (136-145) mmol/L Potassium (3.5-5.1) mmol/L Chloride (98-107) mmol/L Carbon Dioxide (21-32) mmol/L Anion Gap (3-11) BUN (7-18) mg/dl Creatinine (0.6-1.2) mg/dl Est Cr Clr Drug Dosing ml/min Est GFR ( Amer) ml/min Est GFR (Non-Af Amer) ml/min BUN/Creatinine Ratio (10-20) Glucose (70-99) mg/dl Lactate (0.4-2.0) mmol/L Calcium (8.5-10.1) mg/dl Magnesium (1.8-2.4) mg/dl Total Bilirubin (0.2-1) mg/dl Direct Bilirubin (0-0.2) mg/dl AST (15-37) U/L ALT (12-78) U/L Alkaline Phosphatase (45-117) U/L Troponin I (0-0.045) ng/ml NT-Pro-B Natriuret Pep (0-1800) pg/ml Total Protein (6.4-8.2) gm/dl Albumin (3.4-5.0) gm/dl Lipase (73-393) U/L Procalcitonin < 0.05 (0-0.5) ng/ml Administered Medications Enoxaparin Sodium (Enoxaparin Inj 40 Mg/0.4 Ml Syr) 40 mg SQ Q24H [facility] Stop: 01/02/21 15:59 Last Admin: 12/03/20 16:10 Dose: 40 mg Documented by: [id number] Discontinued Medications Albuterol (Albuterol 0.083% Nebu Soln 3 Ml Vial) 2.5 mg NEB ONE ONE Stop: 12/03/20 11:43 Last Admin: 12/03/20 12:02 Dose: 2.5 mg Documented by: [id number] Ampicillin Sodium/Sulbactam Sodium 3,000 mg/ Sodium Chloride 108 mls @ 200 mls/hr IV NOW STA; Protocol Stop: 12/03/20 11:33 Last Infusion: 12/03/20 12:54 Dose: 0 mls/hr Documented by: [id number] Admin: 12/03/20 11:59 Dose: 200 mls/hr Documented by: [id number] Acetaminophen (Ofirmev) 1,000 mg in 100 mls @ 400 mls/hr IV NOW STA Stop: 12/03/20 11:29 Last Infusion: 12/03/20 12:00 Dose: 0 mls/hr Documented by: [id number] Admin: 12/03/20 11:37 Dose: 400 mls/hr Documented by: [id number] Imaging Data Radiologist's Impression: Chest X-Ray 12/03/20 09:11 XR chest 1V portable CLINICAL HISTORY: Shortness of breath. COMPARISON STUDY: Chest CT October 20, 2019. Chest radiograph June 02, 2020. FINDINGS: Lung volumes are normal. Lungs are clear. There is no pneumothorax or pleural effusion. Cardiac size is normal. Mediastinal contours are normal. There is no evidence for pulmonary edema. IMPRESSION: No acute cardiopulmonary findings. ACT 112: Negative or not required by law. Electronically signed by: Javi Dwyer M.D. 12/03/2020 9:28 AM Discharge Plan Visit Data Chief Complaint: Shortness of Breath/Dyspnea ED Provider: Real Loera Discharge Problem: Aspiration pneumonia, Hypoxia Patient Disposition: Admitted As Inpatient Discharge Instructions Interventions: ED Discharge Assessment Last Done: 12/03/20 13:10 Discharge Problem: Aspiration pneumonia Qualifiers: Aspiration pneumonia type: unspecified Laterality: bilateral Lung location: unspecified part of lung Qualified Code(s): J69.0 - Pneumonitis due to inhalati on of food and vomit
--- NOTE | 2020-12-03 09:29 | XRay Report ---
XR chest 1V portable CLINICAL HISTORY: Shortness of breath. COMPARISON STUDY: Chest CT October 20, 2019. Chest radiograph June 02, 2020. FINDINGS: Lung volumes are normal. Lungs are clear. There is no pneumothorax or pleural effusion. Car diac size is normal. Mediastinal contours are normal. There is no evidence for pulmonary edema. IMPRESSION: No acute cardiopulmonary findings. ACT 112: Negative or not required by law. Electronically signed by: Javi Dwyer M.D. 12/03/2020 9:28 AM
[2020-12-03 09:36] LABS: Basophils # (auto) 0.02 K/uL (0-0.2); Basophils % (auto) 0.2 %; Eosinophils # (auto) 0.05 K/uL (0-0.5); Eosinophils % (auto) 0.4 %; Hematocrit (blood only) 46.3 % (37-47); Hemoglobin 16.5 g/dL (12.0-16.0); Immature Granulocytes # (auto) 0.02 K/uL (0.00-0.02); Immature Granulocytes % (auto) 0.2 %; Lymphocytes # (auto) 1.58 K/uL (1.2-3.4); Lymphocytes % (auto) 13.6 %; Mean Corpuscular Hemoglobin 32.5 pg (25-34); Mean Corpuscular Hgb Conc 35.6 g/dL (32-36); Mean Corpuscular Volume 91.3 fL (80-100); Mean Platelet Volume 10.1 fL (7.4-10.4); Monocytes % (auto) 4.3 %; Neutrophils # (auto) 9.47 K/uL (1.4-6.5); Neutrophils % (auto) 81.3 %; Platelet Count 176 K/uL (130-400); RDW Coefficient of Variation 13.2 % (11.5-14.5); RDW Standard Deviation 43.5 fL (36.4-46.3); Red Blood Count 5.07 M/uL (4.2-5.4); White Blood Count 11.64 K/uL (4.8-10.8)
[2020-12-03 09:49] LABS: Prothrombin Time 10.1 Seconds (9.0-12.0)
[2020-12-03 09:53] LABS: Alanine Aminotransferase 27 U/L (12-78); Aspartate Aminotransferase 18 U/L (15-37); BUN Creatinine Ratio 13.4 (10-20); Bilirubin Direct < 0.1 mg/dl (0-0.2); Blood Urea Nitrogen 11 mg/dl (7-18); Calcium 9.2 mg/dl (8.5-10.1); Carbon Dioxide 29 mmol/L (21-32); Chloride 100 mmol/L (98-107); Creatinine Clr Calc Pharmacy 77.6 ml/min; Est GFR (Non-African American) 63.9 ml/min; Glucose 124 mg/dl (70-99); Lipase 50 U/L (73-393); Potassium 3.7 mmol/L (3.5-5.1); Sodium 136 mmol/L (136-145)
[2020-12-03 09:58] LABS: Alkaline Phosphatase 77 U/L (45-117); Bilirubin,Total 0.7 mg/dl (0.2-1); NT Pro B Type Natriuretic Pept 176 pg/ml (0-1800); Troponin I < 0.015 ng/ml (0-0.045)
[2020-12-03 10:59] LABS: Appearance Urine Clear (Clear); Bacteria Urine Automated Negative (Negative); Bilirubin Urine Negative (Negative); Blood Urine Trace (Negative); Cast Urine Automated 0 /lpf (0-5); Color Urine Yellow; Epithelial Cell Urine Auto 20-30 /lpf (0-5); Glucose Urine UA Negative (Negative); Ketones Urine Negative (Negative); Leukocyte Esterase Urine Trace (Negative); Nitrite Urine Negative (Negative); Protein Urine Negative (Negative); Specific Gravity Urine 1.016 (1.000-1.030); Urobilinogen Urine Negative (Negative); pH Urine 7.5 (4.5-7.5)
[2020-12-03] MEDS ORDERED: AMPICILLIN/SULBACTAM SOD 3,000 MG in 0.9 % SODIUM CHLORIDE 100 ML IV STA (11:01)
[2020-12-03] MEDS ORDERED: ACETAMINOPHEN 1,000 MG/100 ML VIAL IV STA (11:15)
[2020-12-03] MEDS ORDERED: ALBUTEROL 0.083% NEBU SOLN 3 ML VIAL NEB ONE (11:42)
--- NOTE | 2020-12-03 12:08 | History & Physical Report ---
Date of Service December 03, 2020 Assessment & Plan (1) Aspiration pneumonitis: Plan: DDX: Viral vs. bronchitis vs. aspriation pneumonitis: Patient had similar admission in June 30 - Lung sounds consistent with bronchiole irritation - CXR without acute process - As there is no lobar collapse, consolidation, or effusion will hold off on ABX at this time - Bronchodilator nebulizers q6 scheduled for 24 hours with Flutter Valve QID - Follow fever curve and WBCs - Await cultures - WBC 11, PCT <0.05, NLR 4.5:1 - Respiratory viral panel sent as she lives in care community setting (2) Hypoxia: Plan: As above Troponin I negative ECG without dynamic changes (3) GERD (gastroesophageal reflux disease): Plan: Continue omeprazole - as above follow with aspiration puneumonitis (4) Mitral regurgitation: Plan: Grad I soft murmur - mild on ECHO from 2019 - Continue HCTZ - NA 136 (5) Hypertension: Plan: Did not take medications this morning- hold Pseudafed - Give Verapamil now - follow (6) Diastolic CHF, chronic: Plan: Continue Veramil and HCTZ - no other cardiac complaints or symptoms on admission History of Present Illness Chief Complaint: cough Primary Care Provider: Alyse Ruiz MD 89 YOF with past medical history of: Short term memory loss, vertigo, HTN, GERD, Depression/anxiety. Patient comes into the emergency room today for complaints of cough, shortness of breath and fever. Patient was resident at [facility]. She has been trialed on psuedophed/guafenisen for her cough over the past 3 days without any improvement. She was mostly lying and resting in bed yesterday secondary to elevated blood pressure per her sister's report. The patient does endorse that this cough has been ongoing since last week, she is coughing when she takes a deep breath and at times has white thick secretion, but most time it is non-productive. She was noted to choke on some coffee earlier this week, but her cough was present before this, however that made it seem worse. In the EMD she was noted to be febrile to 38.2 an 2L NC for oxygen saturation >95%. She had a CXR performed which does not show any lobar collapse, consolidation, or opacity or pulmonary edema. She was given Unasyn and had a negative COVID test. Hospitalist was consulted for admission. Labs reviewed with WBC 11, NLR 4.5:1, PCT <0.05. Urine sample was obtained and blood cultures obtained prior to administration of Unasyn. Patient cough is raspy with inspiratory wheezes, no egophony on exam. Will send biofire, nebulizer with cough assist, follow fever curve and WBC. Hold on further antibiotics at this time Patient has received her COVID vaccine and her COVID test on admission is: NEGATIVE Allergies Allergy/AdvReac Type Severity Reaction Status Date / Time lisinopril Allergy Unknown MYALGIA Verified 12/03/20 09:30 codeine AdvReac Unknown "HIGH" Verified 12/03/20 09:30 donepezil [From Aricept] AdvReac Unknown Unknown Unverified 12/03/20 09:30 morphine AdvReac Unknown Unknown Unverified 12/03/20 09:30 Opioids - Morphine Analogues AdvReac Unknown Unknown Unverified 12/03/20 09:30 Home Medications Medication Instructions Recorded Confirmed Type docusate sodium 100 mg capsule 100 mg PO BID PRN #60 cap 09/13/18 12/03/20 Rx sennosides 8.6 mg tablet 8.6 mg PO BID PRN #60 tab 01/13/19 12/03/20 History cholecalciferol (vitamin D3) 50 2,000 unit PO DAILY@30 01/18/19 12/03/20 History mcg (2,000 unit) tablet (Vitamin D3) hydrochlorothiazide 12.5 mg capsule 12.5 mg PO DAILY@30 01/18/19 12/03/20 History omeprazole 20 mg capsule,delayed 20 mg PO DAILY@30 01/18/19 12/03/20 History release escitalopram oxalate 20 mg tablet 20 mg PO DAILY@0830 06/19/19 12/03/20 History acetaminophen 500 mg tablet 500 mg PO Q6H PRN #90 tab 03/18/20 12/03/20 Rx (Tylenol Extra Strength) ibuprofen 200 mg tablet 200 mg PO Q6H PRN #90 tab 03/18/20 12/03/20 Rx meclizine 12.5 mg tablet 12.5 mg PO TID PRN #60 tab 05/31/20 12/03/20 Rx verapamil 180 mg tablet,extended 360 mg PO QAM 06/02/20 12/03/20 History release vit A 1,000 unit-C 200 mg-E 60 1 tab PO QAM 06/02/20 12/03/20 History unit-lutein 2 mg and minerals tablet (I-Sonali) pseudoephedrine-guaifenesin ER 60 1 tab PO BID PRN #60 tab 12/01/20 12/03/20 Rx mg-600 mg tablet,extend release 12hr (Mucinex D) calcium carbonate 600 mg calcium 600 mg PO QAM 12/03/20 12/03/20 History (1,500 mg) tablet (Calcium) glucosamine-chondroitin 250 mg-200 1 tab PO TID 12/03/20 12/03/20 History mg tablet (Osteo Bi-Flex) Past Med/Surg History Medical History (Updated 12/03/20 @ 12:14 by FREYA Marx) Aortic valve sclerosis Atrial premature beats Cervicalgia Velez angioma Constipation Depression with anxiety Diverticulitis of colon Hepatic lesion Herpes zoster without complication Hyperlipidemia Hypertension Mitral regurgitation Murmur Osteopenia Paroxysmal SVT (supraventricular tachycardia) Peripheral neuropathy Seborrheic keratosis Short-term memory loss Tubular adenoma of colon Surgical History Hx of cholecystectomy Hx of oral surgery Hx of tubal ligation Family History Brother Colorectal cancer Denies family history of Ovarian cancer Prostate cancer Myocardial infarction Breast cancer Social History Smoking Status: Never smoker Second Hand Exposure: No; Hx Alcohol Use: Yes Alcohol type: beer and wine Hx Substance Use: No Preferred Language: Malagasy Communication Ability: Effective 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 Beliefs That Will Affect Care: None marital status: Current Living Situation: Personal Care Facility Current Living Situation Comment: [facility] current occupational status: retired How many Children do You have: 7 Other Information That Helps Us Care for You: No Feels Safe at Home: Yes Safety Concerns: Feels Safe At This Time caffeine: Yes Dental Care, Regularly: No Physical Activity Frequency: 1-2 Times per Week Seatbelt Use: always Sunscreen Use: No Assistive Devices: Cane Review of Systems Review of Systems: REVIEW OF SYSTEMS: Constitutional: (+) fever, NO sweats or chills Eyes: No diplopia, no worsening or blurred vision ENT: normal hearing, no trouble swallowing Respiratory: (+) cough, sputum, dyspnea on exertion Cardiovascular: No chest pain, tightness or palpitations Abdomen: No pain, nausea, vomiting, diarrhea or constipation Musculoskeletal: No joint pain, calf pain, swelling Neurologic: No weakness, numbness/tingling, or balance problems Psychiatric: No anxiety or depression Skin: No rash or itch Physical Exam Physical Exam: PHYSICAL EXAM: General: awake, alert, no apparent distress Head: Normocephalic, atraumatic ENT: PERRL, EOMI, no pharyngeal exudate, mucous membranes moist Neuro: AAO x 3, speech clear and appropriate, strength intact bilaterally 5/5, sensation intact and equal all extremities and dermatomes, no pronator drift Chest: equal rise and fall of the chest, no accessory muscle use, inspiratory wheeze throughout upper airways, no egophony, raspy cough, no sputum on my exam, on 2LNC Cardiac: Regular rate and rhythm, telemetry reviewed-NSR, skin warm dry, cap refill <3 seconds, peripheral pulses +2 no JVD, no murmur, no edema GI: NABS x 4 quadrants, soft, nontender to palpation, no rebound, guarding or tenderness : Spontaneously voiding, no pain, no CVA tenderness, Extremities: Normal inspection, no peripheral edema or erythema, calfs nontender to palpation Psych: Normal mood and affect Skin: no rash or erythema Results & Data Results & Data ([facility]) Vital Signs (Past 12 Hours) Vital Signs Temp Pulse Pulse Resp BP BP Pulse Ox 12/03/20 10:41 94 H 20 181/98 H 95 12/03/20 10:12 91 H 22 95 12/03/20 10:00 87 L 12/03/20 09:02 38.2 C H 102 H 24 229/110 H 87 L Laboratory Results Abnormal lab results 12/03/20 12/03/20 12/03/20 Range/Units 09:20 09:20 Unknown WBC 11.64 H (4.8-10.8) K/uL Hgb 16.5 H (12.0-16.0) g/dL Neut # (Auto) 9.47 H (1.4-6.5) K/uL Glucose 124 H (70-99) mg/dl Lipase 50 L (73-393) U/L Urine Blood Trace H (Negative) Ur Leukocyte Esterase Trace H (Negative) Urine RBC (Auto) 5-10 H (0-4) /hpf U Epithel Cells (Auto) 20-30 H (0-5) /lpf Diagnostic Findings Chest X-Ray 12/03/20 09:11 XR chest 1V portable CLINICAL HISTORY: Shortness of breath. COMPARISON STUDY: Chest CT October 20, 2019. Chest radiograph June 02, 2020. FINDINGS: Lung volumes are normal. Lungs are clear. There is no pneumothorax or pleural effusion. Cardiac size is normal. Mediastinal contours are normal. There is no evidence for pulmonary edema. IMPRESSION: No acute cardiopulmonary findings. ACT 112: Negative or not required by law. Electronically signed by: Javi Dwyer M.D. 12/03/2020 9:28 AM Medications Administered Home Medications docusate sodium 100 mg capsule 100 mg PO BID PRN #60 cap 09/13/18 [Rx Confirmed 12/03/20] sennosides 8.6 mg tablet 8.6 mg PO BID PRN #60 tab 01/13/19 [History Confirmed 12/03/20] cholecalciferol (vitamin D3) 50 mcg (2,000 unit) tablet (Vitamin D3) 2,000 unit PO DAILY@82901/18/19 [History Confirmed 12/03/20] hydrochlorothiazide 12.5 mg capsule 12.5 mg PO DAILY@82901/18/19 [History Confirmed 12/03/20] omeprazole 20 mg capsule,delayed release 20 mg PO DAILY@82901/18/19 [History Confirmed 12/03/20] escitalopram oxalate 20 mg tablet 20 mg PO DAILY@30 06/19/19 [History Confirmed 12/03/20] acetaminophen 500 mg tablet (Tylenol Extra Strength) 500 mg PO Q6H PRN #90 tab 03/18/20 [Rx Confirmed 12/03/20] ibuprofen 200 mg tablet 200 mg PO Q6H PRN #90 tab 03/18/20 [Rx Confirmed 12/03/20] meclizine 12.5 mg tablet 12.5 mg PO TID PRN #60 tab 05/31/20 [Rx Confirmed 12/03/20] verapamil 180 mg tablet,extended release 360 mg PO QAM 06/02/20 [History Confirmed 12/03/20] vit A 1,000 unit-C 200 mg-E 60 unit-lutein 2 mg and minerals tablet (I-Sonali) 1 tab PO QAM 06/02/20 [History Confirmed 12/03/20] pseudoephedrine-guaifenesin ER 60 mg-600 mg tablet,extend release 12hr (Mucinex D) 1 tab PO BID PRN #60 tab 12/01/20 [Rx Confirmed 12/03/20] calcium carbonate 600 mg calcium (1,500 mg) tablet (Calcium) 600 mg PO QAM 12/03/20 [History Confirmed 12/03/20] glucosamine-chondroitin 250 mg-200 mg tablet (Osteo Bi-Flex) 1 tab PO TID 12/03/20 [History Confirmed 12/03/20] Home Medications docusate sodium 100 mg capsule 100 mg PO BID PRN #60 cap 09/13/18 [Rx Confirmed 12/03/20] sennosides 8.6 mg tablet 8.6 mg PO BID PRN #60 tab 01/13/19 [History Confirmed 12/03/20] cholecalciferol (vitamin D3) 50 mcg (2,000 unit) tablet (Vitamin D3) 2,000 unit PO DAILY@0830 01/18/19 [History Confirmed 12/03/20] hydrochlorothiazide 12.5 mg capsule 12.5 mg PO DAILY@0830 01/18/19 [History Confirmed 12/03/20] omeprazole 20 mg capsule,delayed release 20 mg PO DAILY@0830 01/18/19 [History Confirmed 12/03/20] escitalopram oxalate 20 mg tablet 20 mg PO DAILY@0830 06/19/19 [History Confirmed 12/03/20] acetaminophen 500 mg tablet (Tylenol Extra Strength) 500 mg PO Q6H PRN #90 tab 03/18/20 [Rx Confirmed 12/03/20] ibuprofen 200 mg tablet 200 mg PO Q6H PRN #90 tab 03/18/20 [Rx Confirmed 12/03/20] meclizine 12.5 mg tablet 12.5 mg PO TID PRN #60 tab 05/31/20 [Rx Confirmed 12/03/20] verapamil 180 mg tablet,extended release 360 mg PO QAM 06/02/20 [History Confirmed 12/03/20] vit A 1,000 unit-C 200 mg-E 60 unit-lutein 2 mg and minerals tablet (I-Sonali) 1 tab PO QAM 06/02/20 [History Confirmed 12/03/20] pseudoephedrine-guaifenesin ER 60 mg-600 mg tablet,extend release 12hr (Mucinex D) 1 tab PO BID PRN #60 tab 12/01/20 [Rx Confirmed 12/03/20] calcium carbonate 600 mg calcium (1,500 mg) tablet (Calcium) 600 mg PO QAM 12/03/20 [History Confirmed 12/03/20] glucosamine-chondroitin 250 mg-200 mg tablet (Osteo Bi-Flex) 1 tab PO TID 12/03/20 [History Confirmed 12/03/20] ECG Additional Comments: Sinus rhythm with 1st degree A-V block Possible Left atrial enlargement Septal infarct , age undetermined Abnormal ECG When compared with ECG of 02-JUN-2020 11:22, Septal infarct is now Present Code Status & VTE Plan Code Status CODE: FULL VTE: SCDS, Lovenox 40mg sub q VTE Prophylaxis Plan VTE Prophylaxis will be ordered: Yes Supervising Physician Co-Signing Physician Notes 89 yo female is seen and examined at bedside. During face to face encounter with patient, obtained a history and physical examination. Discussed case with AUSTEN Conner and answered all of the patient's questions. I reviewed above note and agree with it. Biofire showed entero/rhino virus is positive. This is likely causing the symptoms. Will continue supportive care PG Care Time/CCT Total # of Minutes Spent Total Time Spent with Patient: Total time spent is greater than 50% in coordination of care (as documented) at patient's floor/unit and/or counseling patient: Coding Level of Care Code 40800 Initial Inpt Care Lvl 3 Diagnoses Aspiration pneumonitis J69.0 Hypoxia R09.02 GERD (gastroesophageal reflux disease) K21.9 Mitral regurgitation I34.0 Hypertension I10 Diastolic CHF, chronic I50.32
[2020-12-03 13:14] LABS: Adenovirus PCR Not Detected (NotDetected); Bordetella parapertussis PCR Not Detected (NotDetected); Bordetella pertussis PCR Not Detected (NotDetected); Chlamydia pneumoniae PCR Not Detected (NotDetected); Coronavirus 229E PCR Not Detected (NotDetected); Coronavirus CoV-2 (COVID19)PCR Not Detected (NotDetected); Coronavirus HKU1 PCR Not Detected (NotDetected); Coronavirus NL63 PCR Not Detected (NotDetected); Coronavirus OC43PCR Not Detected (NotDetected); Human Metapneumovirus PCR Not Detected (NotDetected); Influenza A PCR Not Detected (NotDetected); Influenza B PCR Not Detected (NotDetected); Mycoplasma pneumoniae PCR Not Detected (NotDetected); Parainfluenza Virus 1 PCR Not Detected (NotDetected); Parainfluenza Virus 2 PCR Not Detected (NotDetected); Parainfluenza Virus 3 PCR Not Detected (NotDetected); Parainfluenza Virus 4 PCR Not Detected (NotDetected); Respiratory Syncytial VirusPCR Not Detected (NotDetected)
[2020-12-03 13:22] LABS: Rhinovirus/Enterovirus PCR DETECTED (NotDetected)
[2020-12-03] MEDS ORDERED: ACETAMINOPHEN HOME PACK 500 MG TABLET PO PRN (13:48)
[2020-12-03] MEDS ORDERED: MECLIZINE 12.5 MG TAB PO PRN (13:48)
[2020-12-03] MEDS ORDERED: ONDANSETRON INJ 2 MG/ML 2 ML VIAL IV PRN (13:48)
[2020-12-03] MEDS ORDERED: DOCUSATE SODIUM 100 MG CAP PO PRN (13:48)
[2020-12-03] MEDS ORDERED: SENNA 8.6 MG TAB PO PRN (13:48)
--- NOTE | 2020-12-03 14:13 | Electrocardiogram Report ---
Test Reason : Blood Pressure : / mmHG Vent. Rate : 100 BPM Atrial Rate : 100 BPM P-R Int : 212 ms QRS Dur : 098 ms QT Int : 362 ms P-R-T Axes : 070 025 035 degrees QTc Int : 466 ms Sinus rhythm with 1st degree A-V block Possible Left atrial enlargement Septal infarct , age undetermined Abnormal ECG When compared with ECG of 02-JUN-2020 11:22, Septal infarct is now Present Confirmed by Koko Vance ([id number]) on 12/03/2020 2:13:13 PM Referred By: ED Confirmed By:Koko Vance
[2020-12-03] MEDS: ENOXAPARIN INJ 40 MG/0.4 ML SYR SQ SCH (16:10)
[2020-12-03] MEDS: VERAPAMIL HCL 180 MG TABCR PO SCH (18:01)
[2020-12-03] MEDS: ALBUTEROL 0.083% NEBU SOLN 3 ML VIAL NEB SCH ×2 (19:24)
[2020-12-03] MEDS: ACETAMINOPHEN 325 MG TAB PO PRN (20:17)
[2020-12-04] MEDS: ALBUTEROL 0.083% NEBU SOLN 3 ML VIAL NEB SCH ×3 (00:08→13:25)
[2020-12-04 07:09] LABS: Basophils # (auto) 0.02 K/uL (0-0.2); Basophils % (auto) 0.2 %; Eosinophils # (auto) 0.31 K/uL (0-0.5); Eosinophils % (auto) 3.3 %; Hematocrit (blood only) 42.5 % (37-47); Hemoglobin 14.7 g/dL (12.0-16.0); Lymphocytes # (auto) 1.61 K/uL (1.2-3.4); Lymphocytes % (auto) 17.3 %; Mean Corpuscular Hemoglobin 32.1 pg (25-34); Mean Corpuscular Hgb Conc 34.6 g/dL (32-36); Mean Corpuscular Volume 92.8 fL (80-100); Mean Platelet Volume 10.4 fL (7.4-10.4); Monocytes % (auto) 5.4 %; Neutrophils # (auto) 6.86 K/uL (1.4-6.5); Neutrophils % (auto) 73.8 %; Platelet Count 165 K/uL (130-400); RDW Coefficient of Variation 13.2 % (11.5-14.5); RDW Standard Deviation 44.9 fL (36.4-46.3); Red Blood Count 4.58 M/uL (4.2-5.4)
[2020-12-04 07:46] LABS: BUN Creatinine Ratio 22.4 (10-20); Calcium 8.8 mg/dl (8.5-10.1); Creatinine Clr Calc Pharmacy 78.6 ml/min; Est GFR (African American) 75.2 ml/min; Est GFR (Non-African American) 64.8 ml/min; Magnesium 2.2 mg/dl (1.8-2.4); Potassium 3.2 mmol/L (3.5-5.1)
[2020-12-04] MEDS ORDERED: POTASSIUM CHLORIDE CRTAB 20 MEQ TABCR PO SCH (09:00)
[2020-12-04] MEDS: PANTOprazole 40 MG TAB PO SCH (09:39)
[2020-12-04] MEDS: ESCITALOPRAM OXALATE 20 MG TAB PO SCH (09:40)
[2020-12-04] MEDS: VERAPAMIL HCL 180 MG TABCR PO SCH (09:40)
[2020-12-04] MEDS: hydroCHLOROthiazide 25 MG TAB PO SCH (09:40)
[2020-12-04] MEDS ORDERED: BENZONATATE 100 MG CAPSULE PO PRN (14:32)
[2020-12-04] MEDS ORDERED: ALBUTEROL 0.083% NEBU SOLN 3 ML VIAL NEB PRN (16:08)
[2020-12-04] MEDS: ENOXAPARIN INJ 40 MG/0.4 ML SYR SQ SCH (16:25)
--- NOTE | 2020-12-04 19:20 | Hospitalist Progress Note ---
Date of Service December 04, 2020 Assessment & Plan (1) Aspiration pneumonitis: Plan: Pt is an 89 y/o female with the PMH of mitral regurg, CHF, and htn presenting to the floor for the CC of hypoxia. DDX: Viral vs. bronchitis vs. aspriation pneumonitis: Patient had similar admission in June 30 - Viral URI panel came back positive for Rhinovirus. - Likely viral bronchitis based off symptoms and normal chest xray - As there is no lobar collapse, consolidation, or effusion will hold off on ABX at this time - Bronchodilator nebulizers switched to q6h prn, seems to be improving with treatment - Follow fever curve and WBCs - Mild leukocytosis resolved. - O2 weening tomorrow to evaluate for O2 requirement. (2) Hypoxia: Plan: As above -Troponin I negative -ECG without dynamic changes (3) GERD (gastroesophageal reflux disease): Plan: -Continue omeprazole (4) Mitral regurgitation: Plan: - Grade 2/6 systolic murmur - mild MR on ECHO from 2018 - Continue HCTZ (5) Hypertension: Plan: -stable, continue current BP regimen (6) Diastolic CHF, chronic: Plan: - Continue Veramil and HCTZ - no other cardiac complaints or symptoms on admission Plan: anticiapte d/c home in am Admission and Anticipated Discharge Date Admission Date: December 03, 2020 Supervising Physician Co-Signing Physician Notes Resident Physician Supervision Note: I independently interviewed and examined the patient and verified the hudson history and physical, reviewed labs and image studies and agree with resident Dr. Brooks findings and care plan. Subjective Pt seen at bedside this morning. She received several albuterol treatments yesterday. She states that she has been feeling so much better than she did yesterday and has had several points where she was not requiring O2, however, at the time of the interview, she did have a nasal cannula in. Pt states that she has had this chronic cough for a long time and it has been occasionally productive, but recently it has become worse and has more frequent production of white sputum, but this has improved since yesterday. Pt denies chest pain, syncope, hemoptysis, or n/v. She did have a fever in the ER, however, this has not been present since admission. Pt has no other complaints at this time. Review of Systems Review of Systems: All systems reviewed & are unremarkable except as noted in HPI & below Physical Exam Constitutional: WD/WN, vitals as above Eyes: PERRL, conjunctivae normal, anicteric sclerae ENMT: external ear and nose normal, oropharynx normal Neck: trachea midline, no thyromegaly normal visual inspection Respiratory: normal respiratory effort, lungs clear to auscultation Cardiovascular: Rate/Rhythm: regular rate and regular rhythm Heart Sounds: + murmur (2/6 systolic murmur best heard at the apex) Palpation: normal PMI Vessels: no JVD Gastrointestinal (Abdomen): normal bowel sounds, soft, nontender, no hepatosplenomegaly Skin: no rashes, warm and dry Neurologic: CN's II-XI intact bilaterally Psychiatric: A+Ox3, euthymic affect Affect: euthymic affect Lymphatic: no cervical or axillary lymphadenopathy Results & Data Results & Data ([facility]) Vital Signs (Past 12 Hours) Vital Signs Temp Pulse Resp BP Pulse Ox 12/04/20 17:41 37.1 C 71 18 147/79 H 95 12/04/20 13:25 78 18 94 12/04/20 11:20 93 12/04/20 11:15 89 L 12/04/20 07:43 36.8 C 72 18 159/77 H 93 12/04/20 07:40 77 18 94
[2020-12-04] MEDS: ACETAMINOPHEN 325 MG TAB PO PRN (20:19)
[2020-12-05 07:13] LABS: Basophils # (auto) 0.03 K/uL (0-0.2); Basophils % (auto) 0.4 %; Eosinophils # (auto) 0.56 K/uL (0-0.5); Eosinophils % (auto) 7.9 %; Hematocrit (blood only) 45.3 % (37-47); Hemoglobin 15.4 g/dL (12.0-16.0); Immature Granulocytes # (auto) 0.01 K/uL (0.00-0.02); Immature Granulocytes % (auto) 0.1 %; Lymphocytes # (auto) 2.18 K/uL (1.2-3.4); Lymphocytes % (auto) 30.7 %; Mean Corpuscular Hemoglobin 32.2 pg (25-34); Mean Corpuscular Volume 94.8 fL (80-100); Mean Platelet Volume 10.3 fL (7.4-10.4); Monocytes # (auto) 0.54 K/uL (0.11-0.59); Monocytes % (auto) 7.6 %; Neutrophils # (auto) 3.78 K/uL (1.4-6.5); Neutrophils % (auto) 53.3 %; Platelet Count 183 K/uL (130-400); RDW Standard Deviation 45.4 fL (36.4-46.3); Red Blood Count 4.78 M/uL (4.2-5.4)
[2020-12-05] MEDS: ESCITALOPRAM OXALATE 20 MG TAB PO SCH (07:23)
[2020-12-05] MEDS: PANTOprazole 40 MG TAB PO SCH (07:23)
[2020-12-05] MEDS: hydroCHLOROthiazide 25 MG TAB PO SCH (07:23)
[2020-12-05] MEDS: VERAPAMIL HCL 180 MG TABCR PO SCH (07:23)
[2020-12-05 08:01] LABS: BUN Creatinine Ratio 19.7 (10-20); Blood Urea Nitrogen 18 mg/dl (7-18); Calcium 9.4 mg/dl (8.5-10.1); Carbon Dioxide 31 mmol/L (21-32); Chloride 101 mmol/L (98-107); Est GFR (African American) 65.3 ml/min; Est GFR (Non-African American) 56.3 ml/min; Glucose 111 mg/dl (70-99); Sodium 137 mmol/L (136-145)
--- NOTE | 2020-12-05 12:39 | Hospitalist Progress Note ---
Date of Service December 05, 2020 Assessment & Plan (1) Aspiration pneumonitis: Plan: Pt is an 89 y/o female with the PMH of mitral regurg, CHF, and htn presenting to the floor for the CC of hypoxia. DDX: Viral vs. bronchitis vs. aspriation pneumonitis: Patient had similar admission in June 30 - Viral URI panel came back positive for Rhinovirus. - Likely viral bronchitis based off symptoms and normal chest xray - As there is no lobar collapse, consolidation, or effusion will hold off on ABX at this time - Bronchodilator nebulizers switched to q6h prn, seems to be improving with treatment - Follow fever curve and WBCs - Mild leukocytosis resolved. - O2 weening tomorrow to evaluate for O2 requirement. (2) Hypoxia: Plan: As above -Troponin I negative -ECG without dynamic changes (3) GERD (gastroesophageal reflux disease): Plan: -Continue omeprazole (4) Mitral regurgitation: Plan: - Grade 2/6 systolic murmur - mild MR on ECHO from 2019 - Continue HCTZ (5) Hypertension: Plan: -stable, continue current BP regimen (6) Diastolic CHF, chronic: Plan: - Continue Veramil and HCTZ - no other cardiac complaints or symptoms on admission Admission and Anticipated Discharge Date Admission Date: December 03, 2020 Subjective Pt seen at bedside this morning. She received several albuterol treatments yesterday. She states that she has been feeling so much better than she did yesterday and has had several points where she was not requiring O2, however, at the time of the interview, she did have a nasal cannula in. Pt states that she has had this chronic cough for a long time and it has been occasionally productive, but recently it has become worse and has more frequent production of white sputum, but this has improved since yesterday. Pt denies chest pain, syncope, hemoptysis, or n/v. She did have a fever in the ER, however, this has not been present since admission. Pt has no other complaints at this time. Review of Systems Review of Systems: REVIEW OF SYSTEMS: Constitutional: (+) fever, NO sweats or chills Eyes: No diplopia, no worsening or blurred vision ENT: normal hearing, no trouble swallowing Respiratory: (+) cough, sputum, dyspnea on exertion Cardiovascular: No chest pain, tightness or palpitations Abdomen: No pain, nausea, vomiting, diarrhea or constipation Musculoskeletal: No joint pain, calf pain, swelling Neurologic: No weakness, numbness/tingling, or balance problems Psychiatric: No anxiety or depression Skin: No rash or itch Physical Exam Constitutional: WD/WN, vitals as above Neck: trachea midline, no thyromegaly normal visual inspection Respiratory: normal respiratory effort, lungs clear to auscultation Cardiovascular: Rate/Rhythm: regular rate and regular rhythm Vessels: no JVD Skin: no rashes, warm and dry Psychiatric: A+Ox3, euthymic affect Affect: euthymic affect Lymphatic: no cervical or axillary lymphadenopathy Results & Data Results & Data ([facility]) Vital Signs (Past 12 Hours) Vital Signs Temp Pulse Pulse Pulse Pulse Pulse Resp 12/05/20 09:55 80 81 81 70 12/05/20 07:32 36.3 C L 65 16 Resp Resp Resp Resp BP Pulse Ox Pulse Ox 12/05/20 09:55 18 18 18 16 90 12/05/20 07:32 153/72 H 94 Pulse Ox Pulse Ox Pulse Ox 12/05/20 09:55 87 L 92 91 12/05/20 07:32
--- NOTE | 2020-12-05 12:48 | Discharge Summary ---
Date of Service December 05, 2020 Admission HPI Per Admitting Provider 89 YOF with past medical history of: Short term memory loss, vertigo, HTN, GERD, Depression/anxiety. Patient comes into the emergency room today for complaints of cough, shortness of breath and fever. Patient was resident at [facility]. She has been trialed on psuedophed/guafenisen for her cough over the past 3 days without any improvement. She was mostly lying and resting in bed yesterday secondary to elevated blood pressure per her sister's report. The patient does endorse that this cough has been ongoing since last week, she is coughing when she takes a deep breath and at times has white thick secretion, but most time it is non-productive. She was noted to choke on some coffee earlier this week, but her cough was present before this, however that made it seem worse. In the EMD she was noted to be febrile to 38.2 an 2L NC for oxygen saturation >95%. She had a CXR performed which does not show any lobar collapse, consolidation, or opacity or pulmonary edema. She was given Unasyn and had a negative COVID test. Hospitalist was consulted for admission. Labs reviewed with WBC 11, NLR 4.5:1, PCT <0.05. Urine sample was obtained and blood cultures obtained prior to administration of Unasyn. Patient cough is raspy with inspiratory wheezes, no egophony on exam. Will send biofire, nebulizer with cough assist, follow fever curve and WBC. Hold on further antibiotics at this time Patient has received her COVID vaccine and her COVID test on admission is: NEGATIVE Admission Exam Per Admitting Provider PHYSICAL EXAM: General: awake, alert, no apparent distress Head: Normocephalic, atraumatic ENT: PERRL, EOMI, no pharyngeal exudate, mucous membranes moist Neuro: AAO x 3, speech clear and appropriate, strength intact bilaterally 5/5, sensation intact and equal all extremities and dermatomes, no pronator drift Chest: equal rise and fall of the chest, no accessory muscle use, inspiratory wheeze throughout upper airways, no egophony, raspy cough, no sputum on my exam, on 2LNC Cardiac: Regular rate and rhythm, telemetry reviewed-NSR, skin warm dry, cap refill <3 seconds, peripheral pulses +2 no JVD, no murmur, no edema GI: NABS x 4 quadrants, soft, nontender to palpation, no rebound, guarding or tenderness : Spontaneously voiding, no pain, no CVA tenderness, Extremities: Normal inspection, no peripheral edema or erythema, calfs nontender to palpation Psych: Normal mood and affect Skin: no rash or erythema Principal Diagnosis Viral bronchitis Discharge Exam Constitutional WD/WN, vitals as above Neck trachea midline, no thyromegaly normal visual inspection Respiratory Bilateral inspiratory wheezes noted, no crackles or rales, unlabored respirations, no accessory muscle use Cardiovascular Rate/Rhythm: regular rate and regular rhythm Vessels: no JVD Skin no rashes, warm and dry Psychiatric A+Ox3, euthymic affect Affect: euthymic affect Lymphatic no cervical or axillary lymphadenopathy Discharge Data Allergies Allergy/AdvReac Type Severity Reaction Status Date / Time lisinopril Allergy Unknown MYALGIA Verified 12/03/20 09:30 codeine AdvReac Unknown "HIGH" Verified 12/03/20 09:30 donepezil [From Aricept] AdvReac Unknown Unknown Unverified 12/03/20 09:30 morphine AdvReac Unknown Unknown Unverified 12/03/20 09:30 Opioids - Morphine Analogues AdvReac Unknown Unknown Unverified 12/03/20 09:30 Consultations 12/03/20 11:01 ED Decision to Admit Stat Hospital Course (1) Aspiration pneumonitis: Pt is an 89 y/o female with the PMH of mitral regurgitation, CHF, and HTN admitted for hypoxia in context of chronic cough and viral bronchitis, hospitalized from 12/03 to 12/05. Viral bronchitis - Viral URI panel came back positive for Rhinovirus - Normal CXR without concern for pneumonia - Progressively decreased use of prn bronchodilators/albuterol as hospital stay progressed - O2 saturation stable with supplemental O2 NC - Pt's O2 requirement successfully weaned from 4L NC to RA with ambulatory O2 saturation 90-92% on day of discharge - Symptoms expected to fully resolve over the next few weeks (2) Hypoxia: As above -Troponin I negative -ECG without dynamic changes (3) GERD (gastroesophageal reflux disease): -Continued omeprazole (4) Mitral regurgitation: - Grade 2/6 systolic murmur - mild MR on ECHO from 2019 - Continued HCTZ (5) Hypertension: -stable, continued home BP regimen (6) Diastolic CHF, chronic: - Continued Veramil and HCTZ - no other cardiac complaints or symptoms on admission Total Time Total Time Spent Total Time Spent (In Minutes): <30 Discharge Plan Discharge Items Patient Disposition: Personal Alf Reason For Visit: cough,dyspnea Discharge Diagnosis: Viral bronchitis Activity: Per Instructions section Non-emergency contact: Primary Care Provider Call non-emergency contact if: your symptoms worsen and you have a fever Follow-up/Referrals: Alyse Ruiz MD [Primary Care Provider] - 12/12/20 11:30 am Diet: Regular Addtl Attending Provider Instructions: You were admitted to the hospital for dyspnea, referring to shortness of breath with inefficient oxygen levels in your breathing. You were tested for multiple respiratory viruses and found to have Rhinovirus infection, also known as the common cold. This viral infection affected part of your airway and was believed to be the cause of your symptoms. You were treated with oxygen and medications called bronchodilators to help open up your airway to assist in your breathing. Your symptoms improved with these measures but your cough is still occurring. Unfortunately, the symptoms of viral infections can take a while to fully resolve, so you may still experience a cough for a few weeks. It is important you stay hydrated during this time. If you experience fever or aches, it is safe to take over the counter medications such as ibuprofen or Tylenol to reduce some of the inflammation from your infection. If you experience fever above 101 F, shortness of breath or persistent fatigue, please alert your physician or come to the emergency department if you feel your symptoms are severe. You were also seen by speech therapy during your stay, and they noticed you had some difficulty swallowing foods with multiple textures. They suggested you receive an outpatient evaluation with Speech and Language Pathology after your discharge. Please discuss this with your PCP. A discharge summary will be sent to your primary care physician to ensure continuity of care. Please bring this discharge summary with you to your next appointment so that your physician can review at that time. CALL 911 OR GO TO THE EMERGENCY DEPARTMENT if you experience any of the following: Sudden, severe abdominal pain or nausea/vomiting Severe chest pain, or chest pain that radiates (moves) to your jaw or arm Sudden, severe shortness of breath or difficulty breathing Thank you for allowing us to participate in your care. Pending Studies at Discharge: No Stand-Alone Forms: OnSwipe, Smoking Cessation Skilled Items Patient informed of condition?: Yes DNR: No Discharge Level of Care: Other Communicable Disease: No Discharge Prognosis: Stable Lines: None Urinary Catheter: No Medications and DC Order Prescriptions: Continued acetaminophen [Tylenol Extra Strength] 500 mg tablet 500 mg PO Q6H PRN (Reason: fever) Qty: 90 RF: 1 ibuprofen 200 mg tablet 200 mg PO Q6H PRN (Reason: pain) Qty: 90 RF: 1 meclizine 12.5 mg tablet 12.5 mg PO TID PRN (Reason: dizziness) Qty: 60 RF: 1 pseudoephedrine-guaifenesin [Mucinex D] 60-600 mg tablet extended release 12 hr 1 tab PO BID PRN (Reason: COLD SYMTOMS) Qty: 60 RF: 3 docusate sodium 100 mg capsule 100 mg PO BID PRN (Reason: constipation) Qty: 60 RF: 0 sennosides 8.6 mg tablet 8.6 mg PO BID PRN (Reason: Constipation) Qty: 60 RF: 0 cholecalciferol (vitamin D3) [Vitamin D3] 2,000 unit Tablet 2,000 unit PO DAILY@0830 RF: 0 hydrochlorothiazide 12.5 mg capsule 12.5 mg PO DAILY@0830 RF: 0 omeprazole 20 mg capsule,delayed release(DR/EC) 20 mg PO DAILY@0830 RF: 0 escitalopram oxalate 20 mg tablet 20 mg PO DAILY@0830 RF: 0 I-Sonali 1,000 unit-200 mg-60 unit-2 mg Tablet 1 tab PO QAM RF: 0 verapamil 180 mg tablet extended release 360 mg PO QAM RF: 0 glucosamine-chondroitin [Osteo Bi-Flex] 250-200 mg Tablet 1 tab PO TID RF: 0 calcium carbonate [Calcium 600] 600 mg calcium (1,500 mg) tablet 600 mg PO QAM RF: 0 Discharge Orders: Discharge Order (Routine); Ordered 12/05/20 Ordered By: Rubens Skinner Admission Data Admit Date/Time: 12/03/20 11:55 Attending Provider: Blayne Mena Admit Provider: Howard Conner Primary Care Provider: Alyse Ruiz Other Providers: Boom Doe Other Interventions: Discharge Summary Assessment (RN) Last Done: 12/05/20 12:52 Supervising Physician Co-Signing Physician Notes I personally examined the patient and verified all hudson points of history and exam, discussed case, and agree with decision making with Dr Skinner not overly sob overall but cough persists. Vitals noted, in general she is awake and alert pleasant no distress. HEENT normocephalic atraumatic mucous membranes moist. Lungs are clear to auscultation bilaterally no rales rhonchi or wheezes good effort, she does have few coughing fits during exam, but no lung findings. No focal neuro deficits. Hypoxia related to viral bronchitisstable/improving. Stable for return to personal care. No specific treatment, ongoing supportive care. Otherwise as above. Resident Activity Tracking Resident Involvement: Resident Care Provided Care Provided: Adult Hospital Medicine
[2020-12-05] MEDS: ENOXAPARIN INJ 40 MG/0.4 ML SYR SQ SCH (15:45)
--- NOTE | 2020-12-05 16:09 | Billing Data ---
Date of Service December 05, 2020 Coding Level of Care Code D/C DAY MANAGEMENT <30 MINS
== END 2020-12-05 16:17 | disposition home or self-care (01) ==
LOC: ED 09:03 → SUATTDRO 11:55 → INTOOBSV 11:55 → 3N 11:55